=== PATIENT | male | born 1960 | race Caucasian/White ===

== ENCOUNTER 2018-05-08 02:56 | Inpatient (IN) ==
[2018-05-08] MEDS: *HR* OxyCODONE/APAP 5/325 TABLET PO PRN ×4 (06:40→20:35)
[2018-05-08] MEDS ORDERED: Ondansetron 4 MG/2 ML VIAL IVP PRN (08:08)
[2018-05-08] MEDS ORDERED: Naloxone 0.4 MG/ML INJ IVP PRN (08:08)
[2018-05-08] MEDS ORDERED: *HR* Promethazine 25 MG/ML VIAL IVP PRN (08:08)
[2018-05-08 08:53] LABS: BUN/Creatinine Ratio 33 (6-26); Blood Urea Nitrogen 18 mg/dL (6-20); Calcium 8.8 mg/dL (8.6-10.3); Carbon Dioxide 25 mEq/L (23-29); Chloride 106 mEq/L (98-107); Glucose 262 mg/dL (70-105); Osmolality,Calculated 295 (280-300); Potassium 3.7 mEq/L (3.5-5.1); Sodium 137 mEq/L (136-145); eGFR For African Americans > 60 (> 60); eGFR For Non-African Americans > 60 (> 60)
[2018-05-08] MEDS: Aspirin Enteric Coated 81 MG Tablet PO SCH (09:32)
--- NOTE | 2018-05-08 10:46 | Internal Med History&Physical ---
Date of Encounter: 05/08/18 Time of Encounter: 10:00 Internal Medicine - H&P: HPI Chief complaint: Chest pain Admitted From: Emergency Dept Plans for Post Hospital Care: Home History of present illness: Mr. 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 Patient stated he got chest pain while at rest, located left chest wall region, radiated to his left shoulder, intermittent and 5 out of 10 in severity. His chest pain more like tightness and sharp. He denied of any active chest pain now. His chest and relieved with a Nitro. Patient also mentioned some orthopnea and PND. He does have bilateral lower extremity edema too. Past Med Surg Social Fam HX - Past Medical History Medical history: coronary artery disease, CVA, diabetes, hypertension, myocardial infarction - Past Surgical History Additional surgical history: heart stent x 5 - Social History Smoking Status: Former smoker Smokeless Tobacco Status: No Alcohol use: none Drug use: none - Family History Brother Living Status: Age at : 40 Cause of : Throat cancer Hx Family Respiratory Disorders: Yes (COPD) Hx Family Cancer: Yes (Throat) Mother Living Status: Age at : 52 Cause of : Lung disease Hx Family Respiratory Disorders: Yes (COPD) Hx Family Cancer: No Hx Family GI Disorders: No Hx Family Genitourinary Disorders: No Hx Family Endocrine Disorder: No Hx Family Musculoskeletal Disorders: No Hx Family Neuromuscular Disorders: No Hx Family Neurologic Disorders: No Hx Family HEENT Disorders: No Hx Family Autoimmune Disorders: No Hx Family Reproductive Disorders: No Hx Family Psychosocial Disorders: No Hx Family Medical Disorders: No Internal Medicine - H&P: Meds Oxycodone HCl/Acetaminophen [Percocet 5-325 mg Tablet] 1 each PO Q4HR PRN [History] 3 Allergy/AdvReac Type Severity Reaction Status Date / Time hydrocodone Allergy Rash Verified 05/08/18 05:24 morphine Allergy Rash Verified 05/08/18 05:24 fluoxetine [From Prozac] AdvReac See Verified 05/08/18 05:24 Comments Varenicline [From Chantix] AdvReac See Verified 05/08/18 05:24 Comments All Systems PM: A 10-system review of systems was performed and is negative for pertinent findings except as documented above in the HPI. Review of systems: All the systems are reviewed everything is benign except the systems and symptoms I mentioned in the history of present illness - Constitutional Vitals: Temp Pulse Resp BP Pulse Ox 97.8 F 85 17 150/75 95 05/08/18 07:29 05/08/18 07:29 05/08/18 07:29 05/08/18 07:29 05/08/18 07:29 General appearance: Present: A&O X 3, no acute distress, answers questions appropriately - Head Head exam: Present: atraumatic, normal inspection - Neck Neck exam general surgery: Present: supple - Respiratory Respiratory exam: Present: decreased breath sounds. Absent: rales, respiratory distress, rhonchi, wheezes - Cardiovascular Cardiovascular exam: Present: RRR, +S1, +S2. Absent: tachycardia - GI/Abdominal GI/Abdominal exam: Present: normal bowel sounds, soft. Absent: rebound, rigid, tenderness - Extremities Exam Extremities exam: Present: pedal edema. Absent: calf tenderness, tenderness - Back Exam Back exam: Absent: CVA tenderness (L), CVA tenderness (R) - Psychiatric Psychiatric exam: Present: normal affect, normal mood - Skin Skin exam: Absent: rash Internal Med - H&P Results - Labs CBC & Chem 7: 05/08/18 08:24 Labs: BMP 05/08/18 08:24 Sodium 137 Potassium 3.7 Chloride 106 Carbon Dioxide 25 BUN 18 Creatinine 0.55 L Glucose 262 H Calcium 8.8 Cardiac Enzymes 05/08/18 05/08/18 Range/Units 06:24 08:24 Troponin I < 0.03 < 0.03 (< 0.04) ng/mL - Assessment and plan (1) Chest pain Current Visit: Yes Status: Acute Assessment and plan: Will admit the pt into Tele for observation Will place pt on personnel monitor check serial troponin so far negative troponin EKG reviewed showed normal sinus rhythm no acute ischemic changes noticed will start pt on ASA, Nitro PRN for pain Will check FLP in AM Will get pharmacological stress test in AM since pt is high risk for ACS reviewed his labs from [facility]- WBC 8.7, hemoglobin 12.9, [place]/creatinine 23/ 0.9 Qualifiers: Ischemic chest pain type: stable angina pectoris Qualified Code(s): I20.8 - Other forms of angina pectoris (2) Acute exacerbation of CHF (congestive heart failure) Current Visit: Yes Status: Acute Assessment and plan: His symptoms with HURTADO, orthopnea, PND and bilateral lower extremity edema of consistent with the mild CHF exacerbation no echocardiograms in the past listed here to review suspecting mostly diastolic congestive heart failure will get chest x-ray now also will check BNP depending on that will give him small dose of Lasix as needed also started him on metoprolol 20 mg PO b.i.d. check daily weights and electrolytes closely Qualifiers: Heart failure type: unspecified Qualified Code(s): I50.9 - Heart failure, unspecified (3) History of coronary artery disease Current Visit: Yes Status: Acute Assessment and plan: patient did mention he was off Plavix since last year never on any aspirin he also does not have primary care provider since 2016 so start him on aspirin and beta monroe blood pressure allows will add ACEI (4) Hypertension Current Visit: Yes Status: Acute Assessment and plan: started on Metoprolol Qualifiers: Hypertension type: essential hypertension Qualified Code(s): I10 - Essential (primary) hypertension (5) Diabetes type 2, controlled Current Visit: Yes Status: Acute Assessment and plan: Reviewed his labs from [facility] fasting blood sugar significantly elevated 270 will check hemoglobin A-1 C placed him on insulin sliding scale he may need oral medication when he is ready to go home Qualifiers: Diabetes mellitus residential insulin use: without residential use Diabetes mellitus complication status: without complication Qualified Code(s): E11.9 - Type 2 diabetes mellitus without complications (6) History of CVA with residual deficit Current Visit: Yes Status: Acute Assessment and plan: started him on aspirin - Time Spent With Patient Total time spent is greater than 50% in coordination of care (as documented) at patient's floor/unit and/or counseling patient:
[2018-05-08] MEDS ORDERED: D5% in Water 1,000 ML IVC PRN (10:56)
[2018-05-08] MEDS ORDERED: Dextrose Gel 15 GM/37.5 ML TUBE PO PRN ×2 (10:56)
[2018-05-08] MEDS ORDERED: *HR* Dextrose 50 % in Water (Syg) 50 ML SYRINGE IVP PRN (10:56)
[2018-05-08] MEDS: Furosemide 20 MG TABLET PO SCH ×2 (12:43→16:28)
[2018-05-08] MEDS: Insulin LISPRO 300 UNITS/3 ML VIAL SQ SCH ×3 (12:43→20:53)
[2018-05-08] MEDS: Bisacodyl 10 MG RECTAL SUPPOSITORY RC PRN (18:47)
[2018-05-09] MEDS: *HR* OxyCODONE/APAP 5/325 TABLET PO PRN ×5 (02:05→21:42)
[2018-05-09] MEDS: Melatonin 3 MG TABLET PO SCH ×2 (04:30→21:43)
[2018-05-09] MEDS ORDERED: *HR* Metoprolol 5 MG/5 ML VIAL IVP ONE (05:55)
[2018-05-09] MEDS ORDERED: Regadenoson 0.4 MG/5 ML SYRINGE IVP ONE (06:06)
[2018-05-09 07:27] LABS: Estimated Average Glucose 163 mg/dl; Hemoglobin A1C 7.3 %
[2018-05-09] MEDS: Aspirin Enteric Coated 81 MG Tablet PO SCH (08:04)
[2018-05-09] MEDS: Furosemide 20 MG TABLET PO SCH ×2 (08:04→17:27)
[2018-05-09] MEDS: Insulin LISPRO 300 UNITS/3 ML VIAL SQ SCH ×4 (08:05→21:43)
--- NOTE | 2018-05-09 09:00 | Internal Med Progress Note ---
<Roscoe Waite - Last Filed: 05/09/18 14:06> Date of Encounter: 05/09/18 Time of Encounter: 08:59 - Assessment and plan (1) Chest pain Current Visit: Yes Status: Acute Assessment and plan: Will admit the pt into Tele for observation Will place pt on radiographer cardiac catheterization Negative serial troponins EKG reviewed showed normal sinus rhythm no acute ischemic changes noticed Continue on ASA, Nitro PRN for pain (hold prior to stress test) FLP complete, start a high intensity statin per ACC/AHA guidelines Will get pharmacological stress test since pt is high risk for ACS. Patient states he is able to lay flat to perform nuclear stress test in AM. NPO after MN. Qualifiers: Chest pain type: chest pain due to myocardial ischemia Ischemic chest pain type: stable angina pectoris Qualified Code(s): I20.8 - Other forms of angina pectoris (2) History of coronary artery disease Current Visit: Yes Status: Acute Assessment and plan: Patient did mention he was off Plavix since last year Continue aspirin and beta monroe Start Amoldipine 10mg PO daily If blood pressure allows will add ACEI (3) Hypertension Current Visit: Yes Status: Acute Assessment and plan: Continue beta monroe Start Amoldipine 10mg PO daily If blood pressure allows will add ACEI Qualifiers: Hypertension type: essential hypertension Qualified Code(s): I10 - Essential (primary) hypertension (4) Acute exacerbation of CHF (congestive heart failure) Current Visit: Yes Status: Acute Assessment and plan: His symptoms with HURTADO, orthopnea, PND and bilateral lower extremity edema of consistent with the mild CHF exacerbation Echocardiograms revealed EF 60-65%, diastolic congestive heart failure Chest x-ray shows No consolidative airspace disease. Question airway inflammation, such as that seen with asthma, bronchitis or smoking, possibly aspiration given slight basal predominance. BNP 87 Continue Lasix and metoprolol 20 mg PO b.i.d. check daily weights and electrolytes closely Qualifiers: Heart failure type: unspecified Qualified Code(s): I50.9 - Heart failure, unspecified (5) Diabetes type 2, controlled Current Visit: Yes Status: Acute Assessment and plan: Hemoglobin A-1 C 7.3 Continue insulin sliding scale Start oral medication when he is ready to go home Qualifiers: Diabetes mellitus halfway insulin use: without halfway use Diabetes mellitus complication status: without complication Qualified Code(s): E11.9 - Type 2 diabetes mellitus without complications (6) History of CVA with residual deficit Current Visit: Yes Status: Acute Assessment and plan: Started him on aspirin PT/OT consulted (7) DVT prophylaxis Current Visit: Yes Status: Acute Assessment and plan: Heparin subQ - Time Spent With Patient Total time spent is greater than 50% in coordination of care (as documented) at patient's floor/unit and/or counseling patient: - Subjective Interval history: Patient seen and examined sitting comfortably at bedside. He reports leg edema this morning and unchanged chest pressure. Patient had episode of elevated BP overnight per RN. Patient states he is able to lay flat to perform nuclear stress test in AM. NPO after MN. - Constitutional Vitals: Temp Pulse Resp BP Pulse Ox 98.0 F 94 18 180/96 97 05/09/18 07:20 05/09/18 07:20 05/09/18 07:20 05/09/18 07:20 05/09/18 07:20 General appearance: Present: A&O X 3, no acute distress, obese, answers questions appropriately - Head Head exam: Present: atraumatic, normocephalic - Eye Eye exam: Present: PERRL, conjuntiva pink, sclera anicteric Pupils: Present: PERRL - ENT ENT exam: Present: mucous membranes moist, normal oropharynx - Neck Neck exam general surgery: Present: supple, trachea midline. Absent: lymphadenopathy - Respiratory Respiratory exam: Present: CTAB. Absent: accessory muscle use, rales, rhonchi, wheezes - Cardiovascular Cardiovascular exam: Present: RRR, +S1, +S2. Absent: diastolic murmur, gallop, rubs, systolic murmur - GI/Abdominal GI/Abdominal exam: Present: normal bowel sounds, soft, no peritoneal signs. Absent: distended, tenderness - Extremities Exam Extremities exam: Present: pedal edema (2+), warm, radial pulses palpable and symmetrical. Absent: calf tenderness, cyanotic, full ROM - Back Exam Back exam: Present: normal inspection. Absent: tenderness - Neurological Exam Neurological exam: Present: motor sensory deficit (residual left hemiparesis), oriented X3. Absent: no focal deficits, strengths equal and symetr throughout, pronater drift, facial droop, speech deficit - Psychiatric Psychiatric exam: Present: normal affect, normal mood - Skin Skin exam: Present: dry, intact, normal color, warm Internal Medicine: Result - Labs CBC & Chem 7: 05/08/18 08:24 Labs: Cardiac Enzymes 05/08/18 05/08/18 Range/Units 13:59 20:24 Troponin I < 0.03 < 0.03 (< 0.04) ng/mL - Pulse Oximetry Interpretation Digit-Finger Pulse Oximetry Readin (On RA) - Impressions Impressions Chest X-Ray 05/08/18 10:41 IMPRESSION: No consolidative airspace disease. Question airway inflammation, such as that seen with asthma, bronchitis or smoking, possibly aspiration given slight basal predominance. D/ / Denton Muñoz / eDnton Muñoz Interpreting Provider: Denton Muñoz Echocardiogram 05/08/18 10:41 Impressions: LVEF 60-65%. Mild left ventricular diastolic dysfunction. No significant valvular dysfunction. Left Ventricular Wall Motion: Rest Echo Findings All wall segments showed normal motion. Findings: Right Ventricle * Normal right ventricular structure and function. Right Atrium * Normal right atrial size. Mitral Valve * Normal mitral valve structure and function. Interatrial Septum * No evidence of PFO by color Doppler. Aorta * Normally sized aortic root. Pericardium * The pericardium appears normal. ECG Findings * Normal sinus rhythm. Pulmonic Valve * No pulmonic regurgitation. * No pulmonic stenosis. Study Quality * Technically sub-optimal due to clinical status. Aortic Valve * No aortic regurgitation. * No aortic stenosis. * Aortic valve not well visualized, calcified Left Ventricle * LVEF 60-65%. * Mild left ventricular diastolic dysfunction. Left Atrium * Borderline dilated left atrium. IVC * > 50% respiratory change * The IVC is dilated. Tricuspid Valve * No tricuspid stenosis. * No tricuspid regurgitation. * Unable to estimate RVSP due to lack of TR jet. Consult Discharge Plan - Plan Referrals: NONE,PCP [Primary Care Provider] - <Cristela Ddoson - Last Filed: 05/09/18 16:28> Date of Encounter: 05/09/18 - Assessment and plan (1) Chest pain Current Visit: Yes Status: Acute Qualifiers: Chest pain type: chest pain due to myocardial ischemia Ischemic chest pain type: stable angina pectoris Qualified Code(s): I20.8 - Other forms of angina pectoris (2) History of coronary artery disease Current Visit: Yes Status: Acute (3) Hypertension Current Visit: Yes Status: Acute Qualifiers: Hypertension type: essential hypertension Qualified Code(s): I10 - Essential (primary) hypertension (4) Diabetes type 2, controlled Current Visit: Yes Status: Acute Qualifiers: Diabetes mellitus termination clerk insulin use: without halfway use Diabetes mellitus complication status: without complication Qualified Code(s): E11.9 - Type 2 diabetes mellitus without complications (5) History of CVA with residual deficit Current Visit: Yes Status: Acute (6) Acute exacerbation of CHF (congestive heart failure) Current Visit: Yes Status: Acute Qualifiers: Heart failure type: unspecified Qualified Code(s): I50.9 - Heart failure, unspecified (7) DVT prophylaxis Current Visit: Yes Status: Acute - Time Spent With Patient Total time spent is greater than 50% in coordination of care (as documented) at patient's floor/unit and/or counseling patient: - Constitutional Vitals: Temp Pulse Resp BP Pulse Ox 97.8 F 96 16 128/81 94 05/09/18 15:18 05/09/18 15:18 05/09/18 15:18 05/09/18 15:18 05/09/18 15:18 Internal Medicine: Result - Labs CBC & Chem 7: 05/08/18 08:24 Labs: Cardiac Enzymes 05/08/18 Range/Units 20:24 Troponin I < 0.03 (< 0.04) ng/mL - Impressions Impressions Chest X-Ray 05/08/18 10:41 IMPRESSION: No consolidative airspace disease. Question airway inflammation, such as that seen with asthma, bronchitis or smoking, possibly aspiration given slight basal predominance. D/ / Denton Muñoz / Denton Muñoz Interpreting Provider: Denton Muñoz Echocardiogram 05/08/18 10:41 Impressions: LVEF 60-65%. Mild left ventricular diastolic dysfunction. No significant valvular dysfunction. Left Ventricular Wall Motion: Rest Echo Findings All wall segments showed normal motion. Findings: Right Ventricle * Normal right ventricular structure and function. Right Atrium * Normal right atrial size. Mitral Valve * Normal mitral valve structure and function. Interatrial Septum * No evidence of PFO by color Doppler. Aorta * Normally sized aortic root. Pericardium * The pericardium appears normal. ECG Findings * Normal sinus rhythm. Pulmonic Valve * No pulmonic regurgitation. * No pulmonic stenosis. Study Quality * Technically sub-optimal due to clinical status. Aortic Valve * No aortic regurgitation. * No aortic stenosis. * Aortic valve not well visualized, calcified Left Ventricle * LVEF 60-65%. * Mild left ventricular diastolic dysfunction. Left Atrium * Borderline dilated left atrium. IVC * > 50% respiratory change * The IVC is dilated. Tricuspid Valve * No tricuspid stenosis. * No tricuspid regurgitation. * Unable to estimate RVSP due to lack of TR jet. - Attending Attestation I examined this patient and my medical decision-making was reviewed with the Resident Physician Dr. Waite. I agree with the documented findings, disposition and treatment plan as described except to the extent set forth below. Mr. 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 Patient stated he got chest pain while at rest, located left chest wall region, radiated to his left shoulder, intermittent and 5 out of 10 in severity. He denied of any active chest pain now. His chest and relieved with a Nitro. Patient also mentioned some orthopnea and PND. He does have bilateral lower extremity edema too. Gen: A, A, O x 3 Chest: Diminished BS b/l Heart: S1S2 + Ext: b/l LE edema a/p 1. Acute chest pain so far negative troponin x 3 No acute EKG changes 2D Echo showed LVEF 60-65%, Mild LV diastolic dysfunction Unable to do stress test since pt is not able to lie flat will ask cardiology eval 2. Acute diastolic CHF exacerbation Echo reviewed Cont PO lasix 3. Uncontrolled HTN Metoprolol + Lasix Added Norvasc 10mg
[2018-05-09] MEDS ORDERED: amLODIPine 5 MG TABLET PO SCH (09:15)
[2018-05-09] MEDS ORDERED: amLODIPine 5 MG TABLET PO ONE (14:12)
[2018-05-09] MEDS: Acetaminophen 325 MG TABLET PO PRN (20:35)
[2018-05-10] MEDS: *HR* OxyCODONE/APAP 5/325 TABLET PO PRN ×4 (03:16→21:42)
[2018-05-10] MEDS ORDERED: Regadenoson 0.4 MG/5 ML SYRINGE IVP ONE (06:02)
[2018-05-10 06:44] LABS: INR 1.1; Prothrombin Time 12.3 Seconds (9.4-12.1)
[2018-05-10 06:56] LABS: BUN/Creatinine Ratio 30 (6-26); Blood Urea Nitrogen 16 mg/dL (6-20); Calcium 9.8 mg/dL (8.6-10.3); Carbon Dioxide 23 mEq/L (23-29); Chloride 104 mEq/L (98-107); Glucose 218 mg/dL (70-105); Osmolality,Calculated 294 (280-300); Potassium 3.4 mEq/L (3.5-5.1); Sodium 138 mEq/L (136-145); eGFR For African Americans > 60 (> 60); eGFR For Non-African Americans > 60 (> 60)
--- NOTE | 2018-05-10 08:18 | Internal Med Progress Note ---
<Roscoe Waite - Last Filed: 05/10/18 08:23> Date of Encounter: 05/10/18 Time of Encounter: 08:16 - Assessment and plan (1) Chest pain Current Visit: Yes Status: Acute Assessment and plan: Negative serial troponins EKG reviewed showed normal sinus rhythm no acute ischemic changes noticed Continue on ASA, Nitro PRN for pain FLP complete, start a high intensity statin per ACC/AHA guidelines Will like to get pharmacological stress test because pt is high risk for ACS but patient states he was not able to lay flat to perform nuclear stress test in AM. Continue field evidence technician Cardiology consulted for further recommendations Qualifiers: Chest pain type: chest pain due to myocardial ischemia Ischemic chest pain type: stable angina pectoris Qualified Code(s): I20.8 - Other forms of angina pectoris (2) History of coronary artery disease Current Visit: Yes Status: Acute Assessment and plan: Patient did mention he was off Plavix since last year Continue aspirin and beta monroe Continue Amoldipine 10mg PO daily If blood pressure allows will add ACEI (3) Hypertension Current Visit: Yes Status: Acute Assessment and plan: Continue beta monroe Continue Amoldipine 10mg PO daily If blood pressure allows will add ACEI Qualifiers: Hypertension type: essential hypertension Qualified Code(s): I10 - Essential (primary) hypertension (4) Acute exacerbation of CHF (congestive heart failure) Current Visit: Yes Status: Acute Assessment and plan: His symptoms with HURTADO, orthopnea, PND and bilateral lower extremity edema of consistent with the mild CHF exacerbation Echocardiograms revealed EF 60-65%, diastolic congestive heart failure Chest x-ray shows No consolidative airspace disease. Question airway inflammation, such as that seen with asthma, bronchitis or smoking, possibly aspiration given slight basal predominance. BNP 87 Continue Lasix and Metoprolol 20 mg PO b.i.d. check daily weights and electrolytes closely Qualifiers: Heart failure type: unspecified Qualified Code(s): I50.9 - Heart failure, unspecified (5) Diabetes type 2, controlled Current Visit: Yes Status: Acute Assessment and plan: Hemoglobin A-1 C 7.3 Continue insulin sliding scale Start oral medication when he is ready to go home Qualifiers: Diabetes mellitus manager intermediate insulin use: without senior living use Diabetes mellitus complication status: without complication Qualified Code(s): E11.9 - Type 2 diabetes mellitus without complications (6) History of CVA with residual deficit Current Visit: Yes Status: Acute Assessment and plan: Started him on aspirin PT/OT consulted (7) DVT prophylaxis Current Visit: Yes Status: Acute Assessment and plan: Heparin subQ - Time Spent With Patient Total time spent is greater than 50% in coordination of care (as documented) at patient's floor/unit and/or counseling patient: - Subjective Interval history: Patient seen and examined sitting comfortably at bedside. He reports unchanged chest pressure. Patient states he was not able to lay flat to perform nuclear stress test in AM. Cardiology consulted for further recommendations - Constitutional Vitals: Temp Pulse Resp BP Pulse Ox 98.5 F 92 14 126/78 95 05/10/18 07:22 05/10/18 07:22 05/10/18 07:22 05/10/18 07:22 05/10/18 07:22 General appearance: Present: A&O X 3, no acute distress, obese, answers questions appropriately - Head Head exam: Present: atraumatic, normocephalic - Eye Eye exam: Present: PERRL, conjuntiva pink, sclera anicteric Pupils: Present: PERRL - ENT ENT exam: Present: mucous membranes dry, normal oropharynx - Neck Neck exam general surgery: Present: supple, trachea midline. Absent: lymphadenopathy - Respiratory Respiratory exam: Present: CTAB. Absent: accessory muscle use, rales, rhonchi, wheezes - Cardiovascular Cardiovascular exam: Present: RRR, +S1, +S2. Absent: diastolic murmur, gallop, rubs, systolic murmur - GI/Abdominal GI/Abdominal exam: Present: normal bowel sounds, soft, no peritoneal signs. Absent: distended, tenderness - Extremities Exam Extremities exam: Present: pedal edema (1+), warm, radial pulses palpable and symmetrical. Absent: calf tenderness, cyanotic - Back Exam Back exam: Present: normal inspection. Absent: paraspinal tenderness, tenderness - Neurological Exam Neurological exam: Present: CN II-XII intact, motor sensory deficit (residual ) , oriented X3. Absent: no focal deficits, pronater drift, facial droop, speech deficit - Skin Skin exam: Present: dry, intact Internal Medicine: Result - Labs CBC & Chem 7: 05/10/18 05:51 Labs: BMP 05/10/18 05:51 Sodium 138 Potassium 3.4 L Chloride 104 Carbon Dioxide 23 BUN 16 Creatinine 0.54 L Glucose 218 H Calcium 9.8 - ABG Interpretation ABG results: PT/INR, D-dimer PT 12.3 Seconds (9.4-12.1) H 05/10/18 05:51 - Pulse Oximetry Interpretation Digit-Finger Pulse Oximetry Readin (On RA) Consult Discharge Plan - Plan Referrals: NONE,PCP [Primary Care Provider] - <Cristela Dodson - Last Filed: 05/10/18 13:50> Date of Encounter: 05/10/18 - Assessment and plan (1) Chest pain Current Visit: Yes Status: Acute Qualifiers: Chest pain type: chest pain due to myocardial ischemia Ischemic chest pain type: stable angina pectoris Qualified Code(s): I20.8 - Other forms of angina pectoris (2) History of coronary artery disease Current Visit: Yes Status: Acute (3) Hypertension Current Visit: Yes Status: Acute Qualifiers: Hypertension type: essential hypertension Qualified Code(s): I10 - Essential (primary) hypertension (4) Diabetes type 2, controlled Current Visit: Yes Status: Acute Qualifiers: Diabetes mellitus senior living insulin use: without manager intermediate use Diabetes mellitus complication status: without complication Qualified Code(s): E11.9 - Type 2 diabetes mellitus without complications (5) History of CVA with residual deficit Current Visit: Yes Status: Acute (6) Acute exacerbation of CHF (congestive heart failure) Current Visit: Yes Status: Acute Qualifiers: Heart failure type: unspecified Qualified Code(s): I50.9 - Heart failure, unspecified (7) DVT prophylaxis Current Visit: Yes Status: Acute - Time Spent With Patient Total time spent is greater than 50% in coordination of care (as documented) at patient's floor/unit and/or counseling patient: - Constitutional Vitals: Temp Pulse Resp BP Pulse Ox 98.4 F 88 14 110/74 96 05/10/18 11:27 05/10/18 11:27 05/10/18 11:27 05/10/18 11:27 05/10/18 11:27 Internal Medicine: Result - Labs CBC & Chem 7: 05/10/18 05:51 Labs: BMP 05/10/18 05:51 Sodium 138 Potassium 3.4 L Chloride 104 Carbon Dioxide 23 BUN 16 Creatinine 0.54 L Glucose 218 H Calcium 9.8 - ABG Interpretation ABG results: PT/INR, D-dimer PT 12.3 Seconds (9.4-12.1) H 05/10/18 05:51 - Attending Attestation I examined this patient and my medical decision-making was reviewed with the Resident Physician Dr. Waite. I agree with the documented findings, disposition and treatment plan as described except to the extent set forth below. Mr. 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 Patient stated he got chest pain while at rest, located left chest wall region, radiated to his left shoulder, intermittent and 5 out of 10 in severity. Patient also mentioned some orthopnea and PND. He does have bilateral lower extremity edema too. He still has some chest discomfort. Gen: A, A, O x 3 Chest: Diminished BS b/l Heart: S1S2 + Ext: b/l LE edema a/p 1. Acute chest pain so far negative troponin x 3 No acute EKG changes 2D Echo showed LVEF 60-65%, Mild LV diastolic dysfunction Unable to do stress test since pt is not able to lie flat Card suggested dobutamine Echo 2. Acute diastolic CHF exacerbation Echo reviewed Cont PO lasix 3. Uncontrolled HTN Improved with current regimen Metoprolol + Lasix Norvasc 10mg
[2018-05-10] MEDS: amLODIPine 5 MG TABLET PO SCH (08:26)
[2018-05-10] MEDS: Insulin LISPRO 300 UNITS/3 ML VIAL SQ SCH ×4 (08:27→21:49)
[2018-05-10] MEDS: Aspirin Enteric Coated 81 MG Tablet PO SCH (08:27)
[2018-05-10] MEDS: Furosemide 20 MG TABLET PO SCH (08:27)
--- NOTE | 2018-05-10 10:29 | Event Note ---
Date of Encounter: 05/10/18 Time of Encounter: 10:15 - Cardiology Event Note Patient reports he feels he could complete Dobutamine Stress Echo. Unfortunately ate food already. Discussed with primary service, no consult warranted, they will order DSE tomorrow. Consult if needed.
[2018-05-10] MEDS ORDERED: Nitroglycerin 0.4 MG TAB.SUBL SL ONE (15:03)
[2018-05-10] MEDS: Nitroglycerin 0.4 MG TAB.SUBL SL PRN ×2 (15:04→15:09)
[2018-05-10] MEDS: Melatonin 3 MG TABLET PO SCH (21:42)
[2018-05-11] MEDS: *HR* OxyCODONE/APAP 5/325 TABLET PO PRN ×5 (03:28→20:35)
[2018-05-11 07:01] LABS: Mean Corpuscular HGB Conc 33.3 g/dL (31.6-35.5); Mean Corpuscular Hemoglobin 30.2 pg (28.0-33.3); Mean Corpuscular Volume 90.7 fL (83.0-100.0); Mean Platelet Volume 9.9 fL (9.4-12.4); Platelet Count 125 K/mcL (140-400); Red Cell Distribution Width 13.4 % (11.5-14.5)
[2018-05-11 07:12] LABS: BUN/Creatinine Ratio 35 (6-26); Blood Urea Nitrogen 20 mg/dL (6-20); Calcium 9.4 mg/dL (8.6-10.3); Carbon Dioxide 21 mEq/L (23-29); Chloride 106 mEq/L (98-107); Glucose 252 mg/dL (70-105); Magnesium 1.6 mg/dL (1.6-2.6); Osmolality,Calculated 295 (280-300); Potassium 3.7 mEq/L (3.5-5.1); Sodium 137 mEq/L (136-145); eGFR For African Americans > 60 (> 60); eGFR For Non-African Americans > 60 (> 60)
[2018-05-11] MEDS: Insulin LISPRO 300 UNITS/3 ML VIAL SQ SCH ×4 (08:02→20:36)
--- NOTE | 2018-05-11 08:23 | Internal Med Progress Note ---
<Roscoe Waite - Last Filed: 05/11/18 13:23> Date of Encounter: 05/11/18 Time of Encounter: 08:21 - Assessment and plan (1) Chest pain Current Visit: Yes Status: Acute Assessment and plan: Negative serial troponins EKG reviewed showed normal sinus rhythm no acute ischemic changes noticed Continue on ASA, Nitro PRN for pain FLP complete, started a high intensity statin per ACC/AHA guidelines Patient is high risk for ACS but patient states he was not able to lay flat to perform nuclear stress test in AM. Continue compliance monitor Patient is NPO awaiting dobutamine stress Echo today per Cardiology recommendation Qualifiers: Chest pain type: chest pain due to myocardial ischemia Ischemic chest pain type: stable angina pectoris Qualified Code(s): I20.8 - Other forms of angina pectoris (2) History of coronary artery disease Current Visit: Yes Status: Acute Assessment and plan: CAD status post cardiac stents x 5 Patient did mention he was off Plavix since last year Continue aspirin and beta monroe Continue Amoldipine 10mg PO daily Resume home ACEI (3) Acute exacerbation of CHF (congestive heart failure) Current Visit: Yes Status: Acute Assessment and plan: His symptoms with HURTADO, orthopnea, PND and bilateral lower extremity edema of consistent with the mild CHF exacerbation Echocardiograms revealed EF 60-65%, diastolic congestive heart failure Chest x-ray shows No consolidative airspace disease. Question airway inflammation, such as that seen with asthma, bronchitis or smoking, possibly aspiration given slight basal predominance. BNP 87 Lasix IV given Continue Lasix PO daily and Metoprolol 20 mg PO BID check daily weights and electrolytes closely Qualifiers: Heart failure type: diastolic Qualified Code(s): I50.33 - Acute on chronic diastolic (congestive) heart failure (4) Hypertension Current Visit: Yes Status: Acute Assessment and plan: Continue beta monroe Continue Amoldipine 10mg PO daily Resume home ACEI Qualifiers: Hypertension type: essential hypertension Qualified Code(s): I10 - Essential (primary) hypertension (5) Diabetes type 2, controlled Current Visit: Yes Status: Acute Assessment and plan: Hemoglobin A-1 C 7.3 Continue insulin sliding scale Continue home insulin medication Qualifiers: Diabetes mellitus retirement insulin use: without long term care pharmacist use Diabetes mellitus complication status: without complication Qualified Code(s): E11.9 - Type 2 diabetes mellitus without complications (6) History of CVA with residual deficit Current Visit: Yes Status: Acute Assessment and plan: Status post CVA with chronic left residual paralysis Started him on aspirin PT/OT consulted (7) DVT prophylaxis Current Visit: Yes Status: Acute Assessment and plan: Heparin subQ - Time Spent With Patient Total time spent is greater than 50% in coordination of care (as documented) at patient's floor/unit and/or counseling patient: - Subjective Interval history: Patient seen and examined sitting comfortably at bedside. He reports ongoing chest pressure and pedal edema. Patient is NPO awaiting dobutamine stress Echo today per Cardiology recommendation - Constitutional Vitals: Temp Pulse Resp BP Pulse Ox 99.1 F 108 18 148/90 95 05/11/18 07:00 05/11/18 07:00 05/11/18 07:00 05/11/18 07:00 05/11/18 07:00 General appearance: Present: A&O X 3, no acute distress, obese, answers questions appropriately - Head Head exam: Present: atraumatic, normocephalic - Eye Eye exam: Present: PERRL, conjuntiva pink, sclera anicteric Pupils: Present: PERRL - ENT ENT exam: Present: mucous membranes dry, normal oropharynx - Neck Neck exam general surgery: Present: supple, trachea midline. Absent: lymphadenopathy - Respiratory Respiratory exam: Present: decreased breath sounds. Absent: accessory muscle use, rales, respiratory distress, rhonchi, wheezes - Cardiovascular Cardiovascular exam: Present: RRR, +S1, +S2. Absent: diastolic murmur, gallop, rubs, systolic murmur - GI/Abdominal GI/Abdominal exam: Present: normal bowel sounds, soft, no peritoneal signs. Absent: distended, tenderness - Extremities Exam Extremities exam: Present: pedal edema (2+), warm, radial pulses palpable and symmetrical. Absent: calf tenderness, cyanotic - Back Exam Back exam: Present: normal inspection. Absent: paraspinal tenderness, tenderness - Neurological Exam Neurological exam: Present: CN II-XII intact, motor sensory deficit (residual left sided weakness), oriented X3. Absent: no focal deficits, strengths equal and symetr throughout, pronater drift, facial droop, speech deficit - Psychiatric Psychiatric exam: Present: normal affect, normal mood - Skin Skin exam: Present: dry, intact Internal Medicine: Result - Labs CBC & Chem 7: 05/11/18 06:36 05/11/18 06:36 Labs: Short CBC 05/11/18 Range/Units 06:36 WBC 13.3 H (4.3-11.1) K/mcL Hgb 13.0 (12.9-16.9) g/dL Hct 39.0 (37.5-50.1) % Plt Count 125 L (140-400) K/mcL BMP 05/11/18 06:36 Sodium 137 Potassium 3.7 Chloride 106 Carbon Dioxide 21 L BUN 20 Creatinine 0.57 L Glucose 252 H Calcium 9.4 - ABG Interpretation ABG results: PT/INR, D-dimer PT 12.3 Seconds (9.4-12.1) H 05/10/18 05:51 - Pulse Oximetry Interpretation Digit-Finger Pulse Oximetry Readin (On RA) Consult Discharge Plan - Plan Referrals: NONE,PCP [Primary Care Provider] - <Cristela Dodson - Last Filed: 05/11/18 16:08> Date of Encounter: 05/11/18 - Assessment and plan (1) Chest pain Current Visit: Yes Status: Acute Qualifiers: Chest pain type: chest pain due to myocardial ischemia Ischemic chest pain type: stable angina pectoris Qualified Code(s): I20.8 - Other forms of angina pectoris (2) History of coronary artery disease Current Visit: Yes Status: Acute (3) Hypertension Current Visit: Yes Status: Acute Qualifiers: Hypertension type: essential hypertension Qualified Code(s): I10 - Essential (primary) hypertension (4) Diabetes type 2, controlled Current Visit: Yes Status: Acute Qualifiers: Diabetes mellitus long term care pharmacist insulin use: without long term care pharmacist use Diabetes mellitus complication status: without complication Qualified Code(s): E11.9 - Type 2 diabetes mellitus without complications (5) History of CVA with residual deficit Current Visit: Yes Status: Acute (6) Acute exacerbation of CHF (congestive heart failure) Current Visit: Yes Status: Acute Qualifiers: Heart failure type: diastolic Qualified Code(s): I50.33 - Acute on chronic diastolic (congestive) heart failure (7) DVT prophylaxis Current Visit: Yes Status: Acute - Time Spent With Patient Total time spent is greater than 50% in coordination of care (as documented) at patient's floor/unit and/or counseling patient: - Constitutional Vitals: Temp Pulse Resp BP Pulse Ox 98.6 F 101 20 132/82 95 05/11/18 15:17 05/11/18 15:17 05/11/18 15:17 05/11/18 15:17 05/11/18 15:17 Internal Medicine: Result - Labs CBC & Chem 7: 05/11/18 06:36 05/11/18 06:36 Labs: Short CBC 05/11/18 Range/Units 06:36 WBC 13.3 H (4.3-11.1) K/mcL Hgb 13.0 (12.9-16.9) g/dL Hct 39.0 (37.5-50.1) % Plt Count 125 L (140-400) K/mcL BMP 05/11/18 06:36 Sodium 137 Potassium 3.7 Chloride 106 Carbon Dioxide 21 L BUN 20 Creatinine 0.57 L Glucose 252 H Calcium 9.4 - ABG Interpretation ABG results: PT/INR, D-dimer PT 12.3 Seconds (9.4-12.1) H 05/10/18 05:51 - Attending Attestation I examined this patient and my medical decision-making was reviewed with the Resident Physician Dr. Waite. I agree with the documented findings, disposition and treatment plan as described except to the extent set forth below. Mr. Da Silva is a 57 year old male with known past medical history of CAD status post cardiac stents x 5, HTN, hyperlipidemia and history of CVA status post chronic left residual paralysis who is currently not on any anti platelet medication presented emergency room at [facility] with chest pain from last couple of days. Patient stated he got chest pain while at rest, located left chest wall region, radiated to his left shoulder, intermittent and 5 out of 10 in severity. Patient also mentioned some orthopnea and PND. He still has some intermittent chest discomfort. Gen: A, A, O x 3 Chest: Diminished BS b/l Heart: S1S2 + Ext: b/l LE edema a/p 1. Acute chest pain so far negative troponin x 3 No acute EKG changes 2D Echo showed LVEF 60-65%, Mild LV diastolic dysfunction Unable to do stress test since pt is not able to lie flat Reviewed his Dobutamine Echo - unclear Will talk to Card about further work up since he still has intermittent CP 2. Acute diastolic CHF exacerbation Echo reviewed Cont PO lasix 3. Uncontrolled HTN Improved with current regimen Metoprolol + Lasix Norvasc 10mg
[2018-05-11] MEDS ORDERED: Furosemide 20 MG TABLET PO SCH (09:00)
[2018-05-11] MEDS ORDERED: Furosemide 40 MG/4 ML VIAL IVP ONE (10:02)
[2018-05-11] MEDS: Budesonide/Formoterol 160/4.5 MDI IH SCH ×2 (11:05→19:44)
[2018-05-11] MEDS: Tiotropium 18 MCG inhalation IH SCH (11:05)
[2018-05-11] MEDS: amLODIPine 5 MG TABLET PO SCH (11:29)
[2018-05-11] MEDS: Aspirin Enteric Coated 81 MG Tablet PO SCH (11:30)
[2018-05-11] MEDS: risperiDONE 1 MG TABLET PO SCH ×2 (16:19→20:34)
[2018-05-11] MEDS: Furosemide 40 MG/4 ML VIAL IVP SCH (17:07)
[2018-05-11] MEDS: Gabapentin 300 MG CAPSULE PO SCH (20:34)
[2018-05-11] MEDS: Melatonin 3 MG TABLET PO SCH (20:35)
[2018-05-11] MEDS: Famotidine 20 MG TABLET PO SCH (20:35)
[2018-05-11] MEDS ORDERED: Insulin DETEMIR 100 UNIT/ML X5UNITS SQ SCH (21:00)
[2018-05-11] MEDS: Insulin DETEMIR 100 UNIT/ML X5UNITS SQ SCH ×2 (22:31→23:11)
[2018-05-12] MEDS: *HR* OxyCODONE/APAP 5/325 TABLET PO PRN ×5 (05:06→22:06)
[2018-05-12 07:18] LABS: Basophils % 0.3 %; Eosinophils # 0.1 K/mcL (0.0-0.6); Eosinophils % 1.4 %; Hematocrit 37.4 % (37.5-50.1); Hemoglobin 12.5 g/dL (12.9-16.9); Immature Granulocytes % 0.4 % (0-4); Lymphocytes # 2.9 K/mcL (0.6-4.6); Lymphocytes % 28.5 %; Mean Corpuscular HGB Conc 33.4 g/dL (31.6-35.5); Mean Corpuscular Hemoglobin 30.4 pg (28.0-33.3); Mean Platelet Volume 9.2 fL (9.4-12.4); Monocytes # 0.9 K/mcL (0.0-1.3); Monocytes % 8.3 %; Neutrophils # 6.2 K/mcL (1.6-8.9); Platelet Count 150 K/mcL (140-400); Red Blood Count 4.11 M/mcL (4.19-5.50); Red Cell Distribution Width 13.7 % (11.5-14.5); Segmented Neutrophils % 61.1 %
[2018-05-12 07:34] LABS: BUN/Creatinine Ratio 29 (6-26); Blood Urea Nitrogen 22 mg/dL (6-20); Calcium 9.7 mg/dL (8.6-10.3); Carbon Dioxide 26 mEq/L (23-29); Chloride 102 mEq/L (98-107); Glucose 154 mg/dL (70-105); Osmolality,Calculated 290 (280-300); Potassium 3.5 mEq/L (3.5-5.1); Sodium 137 mEq/L (136-145); eGFR For African Americans > 60 (> 60); eGFR For Non-African Americans > 60 (> 60)
[2018-05-12] MEDS: Budesonide/Formoterol 160/4.5 MDI IH SCH ×2 (07:36→22:41)
[2018-05-12] MEDS: Tiotropium 18 MCG inhalation IH SCH (07:36)
[2018-05-12] MEDS: Insulin LISPRO 300 UNITS/3 ML VIAL SQ SCH ×4 (08:00→20:45)
--- NOTE | 2018-05-12 08:45 | Internal Med Progress Note ---
<Florina Ghotra - Last Filed: 05/12/18 08:41> Date of Encounter: 05/12/18 Time of Encounter: 08:41 - Assessment and plan (1) Chest pain Current Visit: Yes Status: Acute Assessment and plan: Negative serial troponins EKG reviewed showed normal sinus rhythm no acute ischemic changes noticed Continue on ASA, Nitro PRN for pain Continue cardiac nurse practitioner dobutamine stress Echo completed yesterday. Multiple LV wall segments were not seen. Therefore cardiology agrees to perform left heart catheter today. Qualifiers: Chest pain type: chest pain due to myocardial ischemia Ischemic chest pain type: stable angina pectoris Qualified Code(s): I20.8 - Other forms of angina pectoris (2) History of coronary artery disease Current Visit: Yes Status: Acute Assessment and plan: CAD status post cardiac stents x 5 Patient did mention he was off Plavix since last year Continue aspirin and beta monroe Continue Amoldipine 10mg PO daily Resume home ACEI (3) Hypertension Current Visit: Yes Status: Acute Assessment and plan: Continue beta monroe Continue Amoldipine 10mg PO daily Resume home ACEI Qualifiers: Hypertension type: essential hypertension Qualified Code(s): I10 - Essential (primary) hypertension (4) Diabetes type 2, controlled Current Visit: Yes Status: Acute Assessment and plan: Hemoglobin A-1 C 7.3 Continue insulin sliding scale Continue home insulin medication Qualifiers: Diabetes mellitus alf insulin use: without alf use Diabetes mellitus complication status: without complication Qualified Code(s): E11.9 - Type 2 diabetes mellitus without complications (5) History of CVA with residual deficit Current Visit: Yes Status: Acute Assessment and plan: Status post CVA with chronic left residual paralysis Started him on aspirin PT/OT consulted (6) Acute exacerbation of CHF (congestive heart failure) Current Visit: Yes Status: Acute Assessment and plan: Echocardiograms revealed EF 60-65%, diastolic congestive heart failure BNP 87 Lasix IV given Continue Lasix PO daily and Metoprolol 20 mg PO BID check daily weights and electrolytes closely Qualifiers: Heart failure type: diastolic Qualified Code(s): I50.33 - Acute on chronic diastolic (congestive) heart failure (7) DVT prophylaxis Current Visit: Yes Status: Acute Assessment and plan: Heparin subQ - Time Spent With Patient Total time spent is greater than 50% in coordination of care (as documented) at patient's floor/unit and/or counseling patient: - Subjective Interval history: Patient states he is doing well this morning. Denies any chest pain, pressure or palpitations. Ate and drank well yesterday without complication. Cardiology agrees to perform left heart catheter today. - Constitutional Vitals: Temp Pulse Resp BP Pulse Ox 97.7 F 57 18 124/74 99 05/12/18 06:55 05/12/18 06:55 05/12/18 07:36 05/12/18 06:55 05/12/18 07:36 General appearance: Present: A&O X 3, no acute distress, obese, answers questions appropriately - Head Head exam: Present: atraumatic, normocephalic - Respiratory Respiratory exam: Present: CTAB. Absent: accessory muscle use, rales, rhonchi, wheezes - Cardiovascular Cardiovascular exam: Present: RRR, +S1, +S2. Absent: diastolic murmur, gallop, rubs, systolic murmur - GI/Abdominal GI/Abdominal exam: Present: normal bowel sounds, soft, no peritoneal signs. Absent: distended, tenderness - Neurological Exam Neurological exam: Present: alert, oriented X3 Additional comments: residual left sided weakness Internal Medicine: Result - Labs CBC & Chem 7: 05/12/18 06:59 05/12/18 06:59 Labs: Short CBC 05/12/18 Range/Units 06:59 WBC 10.2 (4.3-11.1) K/mcL Hgb 12.5 L (12.9-16.9) g/dL Hct 37.4 L (37.5-50.1) % Plt Count 150 (140-400) K/mcL Neutrophils # 6.2 (1.6-8.9) K/mcL BMP 05/12/18 06:59 Sodium 137 Potassium 3.5 Chloride 102 Carbon Dioxide 26 BUN 22 H Creatinine 0.75 Glucose 154 H Calcium 9.7 - ABG Interpretation ABG results: PT/INR, D-dimer PT 12.3 Seconds (9.4-12.1) H 05/10/18 05:51 Consult Discharge Plan - Plan Referrals: NONE,PCP [Primary Care Provider] - <Cristela Dodson - Last Filed: 05/12/18 12:46> Date of Encounter: 05/12/18 - Assessment and plan (1) Chest pain Current Visit: Yes Status: Acute Qualifiers: Chest pain type: chest pain due to myocardial ischemia Ischemic chest pain type: stable angina pectoris Qualified Code(s): I20.8 - Other forms of angina pectoris (2) History of coronary artery disease Current Visit: Yes Status: Acute (3) Hypertension Current Visit: Yes Status: Acute Qualifiers: Hypertension type: essential hypertension Qualified Code(s): I10 - Essential (primary) hypertension (4) Diabetes type 2, controlled Current Visit: Yes Status: Acute Qualifiers: Diabetes mellitus alf insulin use: without alf use Diabetes mellitus complication status: without complication Qualified Code(s): E11.9 - Type 2 diabetes mellitus without complications (5) History of CVA with residual deficit Current Visit: Yes Status: Acute (6) Acute exacerbation of CHF (congestive heart failure) Current Visit: Yes Status: Acute Qualifiers: Heart failure type: diastolic Qualified Code(s): I50.33 - Acute on chronic diastolic (congestive) heart failure (7) DVT prophylaxis Current Visit: Yes Status: Acute - Time Spent With Patient Total time spent is greater than 50% in coordination of care (as documented) at patient's floor/unit and/or counseling patient: - Constitutional Vitals: Temp Pulse Resp BP Pulse Ox 98.0 F 80 18 112/75 91 05/12/18 10:46 05/12/18 10:46 05/12/18 10:46 05/12/18 10:46 05/12/18 10:46 Internal Medicine: Result - Labs CBC & Chem 7: 05/12/18 06:59 05/12/18 06:59 Labs: Short CBC 05/12/18 Range/Units 06:59 WBC 10.2 (4.3-11.1) K/mcL Hgb 12.5 L (12.9-16.9) g/dL Hct 37.4 L (37.5-50.1) % Plt Count 150 (140-400) K/mcL Neutrophils # 6.2 (1.6-8.9) K/mcL BMP 05/12/18 06:59 Sodium 137 Potassium 3.5 Chloride 102 Carbon Dioxide 26 BUN 22 H Creatinine 0.75 Glucose 154 H Calcium 9.7 - ABG Interpretation ABG results: PT/INR, D-dimer PT 12.3 Seconds (9.4-12.1) H 05/10/18 05:51 - Attending Attestation I examined this patient and my medical decision-making was reviewed with the Resident Physician Dr. Ghotra. I agree with the documented findings, disposition and treatment plan as described except to the extent set forth below. Mr. Da Silva is a 57 year old male with known past medical history of CAD status post cardiac stents x 5, HTN, hyperlipidemia and history of CVA status post chronic left residual paralysis who is currently not on any anti platelet medication presented emergency room at [facility] with chest pain from last couple of days. Patient stated he got chest pain while at rest, located left chest wall region, radiated to his left shoulder, intermittent and 5 out of 10 in severity. Patient states over all he feels better today. He still has some intermittent chest discomfort. Gen: A, A, O x 3 Chest: Diminished BS b/l Heart: S1S2 + Ext: b/l LE edema a/p 1. Acute chest pain so far negative troponin x 3 No acute EKG changes 2D Echo showed LVEF 60-65%, Mild LV diastolic dysfunction Unable to do stress test since pt is not able to lie flat Reviewed his Dobutamine Echo - unclear Card scheduled him for [facility] today 2. Acute diastolic CHF exacerbation Echo reviewed Switched to IV lasix 3. Uncontrolled HTN Improved with current regimen Metoprolol + Lasix Norvasc 10mg
[2018-05-12] MEDS: Furosemide 40 MG/4 ML VIAL IVP SCH ×2 (09:12→17:49)
[2018-05-12] MEDS: Aspirin Enteric Coated 81 MG Tablet PO SCH (09:12)
[2018-05-12] MEDS: Famotidine 20 MG TABLET PO SCH ×2 (09:12→20:43)
[2018-05-12] MEDS: Sennosides/Docusate Sodium TABLET PO SCH (09:12)
[2018-05-12] MEDS: Cholecalciferol (D-3) 1,000 UNIT TABLET PO SCH (09:12)
[2018-05-12] MEDS: Gabapentin 300 MG CAPSULE PO SCH ×3 (09:12→20:44)
[2018-05-12] MEDS: amLODIPine 5 MG TABLET PO SCH (09:13)
--- NOTE | 2018-05-12 11:49 | Cardiology Consult Note ---
<Don Garcia - Last Filed: 05/12/18 13:24> Date of Encounter: 05/12/18 Time of Encounter: 11:42 Assessment and Plan (1) Chest pain Current Visit: Yes Status: Acute Suspect UA with possible underlying occlusion/stenosis. Comorbidities include diabetes, significant smoking history, recent CVA, history of IA with multiple stents placed, and mixed dyslipidemia. Serial troponin's negative times 4. BNP within normal range. Echo obtained on 05/08/18 demonstrated mild diastolic dysfunction of left ventricle, but preserved LVEF. Dobutamine stress echo was nondiagnostic with incomplete wall visualization. - plan is to proceed with [facility] today; discussed with patient and he is willing to proceed. -- Pt NPO and denies any contrast allergies -- Patient is demonstrably able to tolerate supine position without oxygen desaturation, cyanosis, or respiratory distress. Qualifiers: Chest pain type: chest pain due to myocardial ischemia Ischemic chest pain type: stable angina pectoris Qualified Code(s): I20.8 - Other forms of angina pectoris Discussion w patient/family: The assessment and plan as outlined above was discussed with the patient and/or family members who expressed understanding and agreement. All questions were answered. Thank you for involving us in the care of your patient. Please call with any questions. History of Present Illness Consult date: 05/12/18 Requesting physician: Cristela Dodson Consult reason: Chest Pain -- nondiagnostic dobutamine stress echo Chief complaint: Chest pain, SOA, and worsening leg swelling History of present illness: Mr. Da Silva is a 57 year old male with past medical history of CAD, CVA (Dec 2017 with residual deficits), DM 2 on insulin, HTN, IA s/p stents x5 ("2012"), former smoker 3 packs per day for approximately 40 years (quit in December 2017 after CVA). Began having left/retrosternal chest pain that felt like a heavy pressure on Wednesday evening (05/06/18). Pain radiated initially to left shoulder. Moderate severity. Pain worsened with any movement including cough or position change. Relieved spontaneously. Intermittent pattern. Also relieved when given nitro. Associated with diaphoresis. No dizziness, episodic shortness of breath, or abdominal discomfort. Presented to [facility] ED same day. Transferred to [place]. Preceding this pain pattern, which he says is completely new for him, patient describes several months of orthopnea and worsening pedal edema. Troponin cycled x4 on date of admission (05/08/18) all of which were less than 0.03; initial EKG without any acute ischemic findings. Echo on 05/08/18 demonstrated LVEF of 60-65% & mild left ventricular diastolic dysfunction; no comparison study in [facility]. Dobutamine stress test on 05/11/18 was non-diagnostic due to habitus with several wall segments not visualized. Patient asymptomatic at present. On encounter, patient is lying flat with no supplementary oxygen; no signs of acute respiratory distress or cyanosis. Past Med Surg Social Fam HX - Past Medical History Attestation: Yes The following information was validated with the patient. Source: patient Medical history: coronary artery disease, CVA, diabetes, hypertension, myocardial infarction - Past Surgical History Surgical History: angioplasty/stent Additional surgical history: heart stent x 5 - Social History Smoking Status: Former smoker Smokeless Tobacco Status: No Alcohol use: none Drug use: none - Family History Brother Living Status: Age at : 40 Cause of : Throat cancer Hx Family Respiratory Disorders: Yes (COPD) Hx Family Cancer: Yes (Throat) Mother Living Status: Age at : 52 Cause of : Lung disease Hx Family Respiratory Disorders: Yes (COPD) Hx Family Cancer: No Hx Family GI Disorders: No Hx Family Genitourinary Disorders: No Hx Family Endocrine Disorder: No Hx Family Musculoskeletal Disorders: No Hx Family Neuromuscular Disorders: No Hx Family Neurologic Disorders: No Hx Family HEENT Disorders: No Hx Family Autoimmune Disorders: No Hx Family Reproductive Disorders: No Hx Family Psychosocial Disorders: No Hx Family Medical Disorders: No Medications and Allergies Oxycodone HCl/Acetaminophen [Percocet 5-325 mg Tablet] 1 tab PO TID PRN [History] Atorvastatin [Lipitor] 40 mg PO HS 05/11/18 [History] Budesonide/Formoterol 160/4.5 [Symbicort 160/4.5] 2 puff IH BIDR 05/11/18 [ History] Cholecalciferol (Vitamin D3) [Vitamin D3] 2,000 unit PO DAILY 05/11/18 [History] Diclofen Sod/Kinesiology Tape [Diclo Gel 1%-Xrylix Sheet Kit] 1 appl TP QID [History] Famotidine [Pepcid] 20 mg PO BID 05/11/18 [History] Gabapentin [Neurontin] 600 mg PO TID 05/11/18 [History] Ibuprofen 800 mg PO TID 05/11/18 [History] Insulin ASPART [Novolog Flexpen] 14 unit SQ TIDWM 05/11/18 [History] Insulin Glargine [Lantus] 75 unit SQ HS 05/11/18 [History] Lisinopril [Zestril] 5 mg PO DAILY 05/11/18 [History] Sennosides/Docusate Sodium [Senna-S Tablet] 1 tab PO DAILY PRN 05/11/18 [History ] Tiotropium [Spiriva] 1 puff IH DAILY 05/11/18 [History] risperiDONE [Risperidone] 2 mg PO TID 05/11/18 [History] 3 Allergy/AdvReac Type Severity Reaction Status Date / Time hydrocodone Allergy Rash Verified 05/08/18 05:24 morphine Allergy Rash Verified 05/08/18 05:24 fluoxetine [From Prozac] AdvReac See Verified 05/08/18 05:24 Comments Varenicline [From Chantix] AdvReac See Verified 05/08/18 05:24 Comments All Systems Review: Positive: ongoing orthopnea/dyspnea, chest pain as described, pedal edema Negative: syncope, precinct be, fevers, chills, myalgias, palpitations, productive,, nausea, vomiting, abdominal upset, diarrhea, dysuria, hematuria, melanoma, bloody stools, or rash/petechiae. Physical Examination Vital Signs, Last 4 Hours Temp Pulse Resp BP Pulse Ox 05/12/18 10:46 98.0 F 80 18 112/75 91 General: Conversant, No Apparent Distress HEENT: Atraumatic, Normocephaly, Mucus Membranes Moist Neck: No JVD, Normal carotid pulses Cardiac: Reg Rate and Rhythm, Normal S1 and S2, No Murmur Lungs: Normal Breath Sounds, No Wheeze, Rales, Rhonchi Neuro: Alert and responsive, Other (Does have residual deficits particularly in the left extremity is from stroke in early 2018) Abdomen: Soft, Non-Tender Skin: No rashes noted on visualized skin Musculoskeletal: No Chest Wall Tenderness Extremities: No Clubbing, No Cyanosis, Other (Bilateral lower extremity pedal edema 1+) Other: Radial and DP pulses 1+ uniformly Results 05/12/18 06:59 05/12/18 06:59 Lab Results 05/12/18 05/12/18 06:59 06:59 WBC 10.2 Hgb 12.5 L Hct 37.4 L Plt Count 150 Sodium 137 Potassium 3.5 Chloride 102 Carbon Dioxide 26 BUN 22 H Creatinine 0.75 Glucose 154 H Calcium 9.7 Consult Discharge Plan - Plan Referrals: NONE,PCP [Primary Care Provider] - <Clarke Quezada - Last Filed: 05/12/18 15:27> Date of Encounter: 05/12/18 - Attending Attestation I examined this patient and my medical decision-making was reviewed with the Resident Physician. I agree with the documented findings, disposition and treatment plan as described except to the extent set forth below. Awaiting [facility], patient echo poor image quality Assessment and Plan Discussion w patient/family: The assessment and plan as outlined above was discussed with the patient and/or family members who expressed understanding and agreement. All questions were answered. Thank you for involving us in the care of your patient. Please call with any questions. History of Present Illness History of present illness: Mr. Da Silva is a 57 year old male All Systems Review: The remainder of the systems were reviewed and are negative Results 05/12/18 06:59 05/12/18 06:59 Lab Results 05/12/18 05/12/18 06:59 06:59 WBC 10.2 Hgb 12.5 L Hct 37.4 L Plt Count 150 Sodium 137 Potassium 3.5 Chloride 102 Carbon Dioxide 26 BUN 22 H Creatinine 0.75 Glucose 154 H Calcium 9.7
[2018-05-12] MEDS ORDERED: 0.9 % Sodium Chloride 1,000 ML ONE ×2 (14:52→15:40)
[2018-05-12] MEDS ORDERED: Heparin 1,000 UNITS/500 mL 500 ML ONE (14:52)
[2018-05-12] MEDS ORDERED: ISOVUE-370 200 ML INFUS..BTL IV ONE (14:52)
[2018-05-12] MEDS ORDERED: Nitroglycerin 1,000 MCG/10 ML VIAL IV ONE (14:52)
[2018-05-12] MEDS ORDERED: *HR* Heparin 10,000 UNIT/10 ML VIAL ONE (14:52)
[2018-05-12] MEDS ORDERED: *HR* Midazolam HCl 2 MG/2 ML VIAL ONE (15:41)
--- NOTE | 2018-05-12 15:59 | Pre-Sedation Evaluation ---
Pre-sedation evaluation - Pre-sedation checklist Date of procedure: 05/12/18 Procedure: left heart cath Recent Vitals: Last Vital Signs Temp 98.0 F 05/12/18 10:46 Pulse 80 05/12/18 10:46 Resp 18 05/12/18 10:46 BP 112/75 05/12/18 10:46 Pulse Ox 91 05/12/18 10:46 H&P (including ROS) documented in medical record: Yes Previous reaction to sedatives/anesthetics: No Dietary Status: NPO after Midnight Airway Assessment: Patient can open mouth completely, TMJ function normal Dentition: No loose teeth or bridges Possible difficult airway: No ASA Classification *see protocol: CLASS III-Severe systemic disease Plan of Care: Pt appropriate candidate for procedure/moderate/conscious sedation , Risks/benefits of procedure/sedation discussed w/ patient/family, If not NPO; Risk of intake outweiged by necessity to perform procedure
[2018-05-12] MEDS ORDERED: 0.9 % Sodium Chloride 1,000 ML IVC SCH (16:30)
--- NOTE | 2018-05-12 16:53 | Invasive Diagnostic Lab Proc ---
Name: Eldon Da Silva Date of Study: 05/12/2018 Date: 1960 Ht: 70.9in Medical Record#: [id number] Age: 57 Wt: 238.10lb Gender: Male BSA: 2.27 Order #: [id number] BMI: 33.33 Physicians Procedure Physician: Raf Gonzáles DO Referring MD: Referring MD: Staff Name Position Time In MaksimDonny roberson RN Lead Dental Assistant 03:56 PM Kerwin Medina RN Monitor 03:56 PM Binh Smith RT (R) Scrub 03:56 PM Indications Indication Unstable Angina Procedures Performed Procedure L HRT ARTERY/VENTRICLE ANGIO Pre-Procedure Checklist Informed consent is complete signed and on chart. H&P is on chart. ID band is on and ID verified with patient. Patient NPO for procedure The procedure was described for the patient and questions were answered. Blood Pressure: 112/74 ECG is on chart. Plan of Care Patient will tolerate the procedure without complications. Adequate level of comfort will be maintained. Hemodynamics will remain stable Patient will recover from procedure without complications. Respiratory function will be maintained. Cardiac rhythm will remain stable. Patient temperature will be maintained. Patient and/or family have verbalized understanding of the procedure. Patient Education Chief Complaint/Reason for Test: Cardiac Cath Developmental Category: Adult (18-64 years) Developmentally Appropriate for Age: Yes Learning Barriers: None Education Needs: Procedure Education Method: Verbal Information Taught: Cardiac Cath Educational Evaluation: Able to repeat information Intravenous Access Time IV Size Location DC'd Fluid/Drip Rate Units RN 20g 1 /" Patent On Arrival Rt Antecubital Allergies morphine hydrocodone fluoxetine Varenicline Vital Signs Time BP (mmHg) HR (bpm) O2 Sat. RR (bpm) LOC 02:19 PM 112 / 75 80 91 % 18 5 = Fully awake and oriented or at pre-proc level 03:57 PM / % 5 = Fully awake and oriented or at pre-proc level 04:00 PM / % 5 = Fully awake and oriented or at pre-proc level 04:00 PM / % 4 = Oriented but drowsy 04:14 PM 115 / 68 117 100 % 04:20 PM 127 / 67 76 100 % 04:24 PM 139 / 77 73 100 % 04:29 PM 151 / 69 73 100 % 04:35 PM 156 / 76 75 95 % 04:39 PM 127 / 78 93 99 % 03:59 PM 117 / 70 96 100 % 04:04 PM 105 / 58 74 99 % 04:09 PM 103 / 62 86 100 % Procedural Medications Time Medication Dose Units Method Given By 04:00 PM Oxygen 2 L/min nasal cannula Donny Schaeffer RN 04:01 PM Versed 2 mg Intravenous Donny Schaeffer RN 04:08 PM Lidocaine 2% 10 ml Subcutaneous Raf Gonzáles DO ASA Classification: CLASS III- Severe systemic disease (i.e. prior AMI, diabetes with vascular complications, morbid obesity) Sumit Score Preprocedure Postprocedure Activity 2- Moves 4 extremities sustained head lift Activity 2- Moves 4 extremities sustained head lift Circulation 2- SBP +/= 20 points of pre-anesthetic level Circulation 2- SBP +/= 20 points of pre-anesthetic level Consciousness 2- Awake and alert oriented x 3 Consciousness 2- Awake and alert oriented x 3 O2 Saturation 2- Able to maintain O2 satruation of 92% on room air O2 Saturation 2- Able to maintain O2 satruation of 92% on room air Respiratory 2- Able to deep breathe and cough well Respiratory 2- Able to deep breathe and cough well Total Score 10 Total Score 10 Contrast Agent: Isovue Diagnostic Contrast: 75 ml Total Contrast: 75 ml Fluoro Dose: 736 mGy Procedure Log Time Note Enter By 03:44 PM CathStat 03:46 PM Case Start 03:46 PM [facility] Patient charges- Angio tray pack, Navilyst 3mm J, Pulse Oximetry and ACIST tubing and transducer 03:46 PM IV Supplies used: J loop Angio Cath. mm 03:53 PM Physician arrived 15:53 oumm 03:53 PM Vignesh completed oumm 03:54 PM Sign in performed according to hospital policy. mm 03:54 PM Procedure start 15:54 oummers 03:54 PM ASA Class CLASS III- Severe systemic disease (i.e. prior AMI, diabetes with vascular complications, morbid obesity) cedwards 03:54 PM Case Delayed no oummers 03:55 PM Hair removed from procedure site in procedure lab using clippers. Bilateral groin prepped with Chloraprep by Binh Smith (R), then patient was draped. Skin intact. 03: PM Time: 15:55 Oxygen on at 2 L/min per nasal cannula by Donny Schaeffer RN 03:56 PM Donny Schaeffer RN Position: Lead Dental Assistant Time in: 15: 03:56 PM Kerwin Medina RN Position: Monitor Time in: 15: 03:57 PM Binh Smith RT (R) Position: Scrub Time in: ::57 PM Time: 15:57 Patient comfortable and pain free: Yes PM Time: 15:57LOC: 5 = Fully awake and oriented or at pre-proc level 03:59 PM Vitals capture started with the following parameters, Patient=Adult, Interval=5 min, Initial Bmcirsxe=543 mmHg, Deflation Rate=5 mmHg, Cuff placed on Right Arm 03:59 PM HR=96 bpm, TPVX=946/70 mmhg, NgE8=141.0 %, Comment=nsr 04:00 PM Time: 16:00 Oxygen on at 2 L/min per nasal cannula by Donny Schaeffer RN cedwards 04:00 PM Time: 16:00 Patient comfortable and pain free: Yes ced 04:00 PM Time: 16:00LOC: 5 = Fully awake and oriented or at pre-proc level cedwards 04:01 PM Time: 16:01 Versed 2 mg Intravenous Given by Donny Schaeffer RN cedwards 04:03 PM Pressure channel 2 zeroed. 04:04 PM HR=74 bpm, IYGK=447/58 mmhg, SpO2=99.0 %, Comment=nsr 04:08 PM Clinical Presentation: Unstable angina cedwards 04:08 PM Time out performed according to hospital policy cedwards 04:08 PM Time: 16:08 10 ml Lidocaine 2% to right groin Subcutaneous Given by Raf Gonzáles DO cedwards 04:09 PM HR=86 bpm, WFWI=997/62 mmhg, AvC2=484.0 % 04:12 PM Micro-Introducer Kit utilized for sheath placement cedwards 04:13 PM Access obtained by percutaneous puncture. 6Fr 10cm Terumo [place] sheath placed in right Femoral artery. [id number] cedwards 04:13 PM 6Fr FR 4 catheter inserted over the wire [facility] cedwards 04:14 PM IN=621 bpm, EPYE=218/68 mmhg, ScQ3=911.0 % 04:15 PM Recorded Pressure: LV, HR=50, Condition=Condition 1 (Left Ventricle) LV 89/-5/1 04:15 PM Recorded Pressure: LV, Ao, HR=82, Condition=Condition 1 (Left Ventricle) LV 66/-4/3, (Aorta) Ao 94/47/66 04:15 PM Time: 16:00LOC: 4 = Oriented but drowsy cedwards 04:15 PM Time: 16:00 Patient comfortable and pain free: Yes cedwards 04:15 PM Catheter selectively placed in left ventricle cedwards 04:15 PM Bolus angiogram of left Ventricle complete cedwards 04:17 PM Recorded Pressure: Ao, HR=88, Condition=Condition 1 (Aorta) Ao 107/54/76 04:17 PM unable to engage RCA with FR4 cedwards 04:18 PM Catheter removed cedwards 04:18 PM 6Fr FL 4 catheter inserted over the wire [facility] cedwards 04:19 PM LCA angiography performed in multiple views. cedwards 04:20 PM HR=76 bpm, DFHX=620/67 mmhg, XhT5=274.0 %, Comment=nsr 04:20 PM Catheter removed cedwards 04:21 PM 6Fr JR 4 Runway guide catheter was used to cannulate the PCI vessel successfully. reused? No cedwards 04:21 PM RCA angiography performed in multiple views. cedwards 04:24 PM HR=73 bpm, VBZB=736/77 mmhg, EqH8=556.0 % 04:25 PM Guide Catheter removed ced 04:26 PM Cardiothoracic surgeon consulted by physician [facility] 04: PM Procedure completed at 16:26 cedwards 04:26 PM Did you address BRENDON flow and Dominance? Yes ced 04:28 PM Sign out completed: Radiation Dose 735.76 mGy Fluoro Time: 4 Isovue 370 - 200ml contrast 75 ml given by Raf Gonzáles DO. Complications: NoneCardiac Rehab Consult needed: NoConfirmed administered medications: Yes ced 04:28 PM Isovue 370 - 200ml,1 Bottle(s) used. ced 04:28 PM Arterial sheath pulled using manual compression and V+ Pad for 20 minutes by Harika Hinkle RN ced:28 PM Estimated Blood Loss: minimal cedwards 04:28 PM Post ECG NSR cedwards 04:29 PM Post Blood Pressure 139/77 cedwards 04:29 PM Information taught Cardiac Cath cedwards 04:29 PM Learning barriers :None cedwards 04:29 PM Education Methods Verbal cedwards 04:29 PM Education evaluation Able to repeat information cedwards 04:29 PM Site status No bleeding/hematoma - Rt Groin as reported by Harika Hinkle RN at 16:29 cedwards 04:29 PM Opsite applied cedwards 04:29 PM Plavix, Effient or Brilinta given No cedwards 04:29 PM HR=73 bpm, SBLB=215/69 mmhg, HfY9=299 % 04:30 PM Complications: None cedwards 04:30 PM Fluoro Time: 4 cedwards 04:30 PM Isovue 370 - 200ml contrast [address] Gonzáles. cedwards 04:30 PM Radiation Dose 735.76 mGy cedwards 04:33 PM Lesion found in Proximal RCA. Pre Stenosis: 100 Pre BRENDON Flow: cedwards 04:33 PM Lesion found in Proximal LAD. Pre Stenosis: 70 Pre BRENDON Flow: cedwards 04:33 PM Lesion found in Distal LAD. Pre Stenosis: 50 Pre BRENDON Flow: cedwards 04:34 PM Lesion found in Distal Circumflex. Pre Stenosis: 80 Pre BRENDON Flow: cedwards 04:35 PM HR=75 bpm, BHFJ=217/76 mmhg, SpO2=95.0 % 04:39 PM HR=93 bpm, XFIQ=646/78 mmhg, SpO2=99 % 04:40 PM Coronary Dominance: right cedwards 04:45 PM Report given to Ana GARNER Pt taken to Room #35. 16:44 cedwards 04:45 PM Patient out of room: 16:45 cedwards Complications Complication None None Hemodynamics Pressures Site Systolic/A Wave Diastolic/V Wave Mean LV 89 -5 1 LV 66 -4 3 AO 94 47 66 AO 107 54 76 Post Procedure Information Blood Pressure: 139/77 mmHg Rhythm: NSR Post procedural instructions were given Surgery consult for CABG Closure Device Time Device Success/Fail 05/12/2018 4:31:00 PM Manual Compression Successful Site Checks Time Location Status Staff Sheath In? Note 04:29 PM Rt Groin No bleeding/hematoma Harika Hinkle RN Pulses Time Site Pre-Procedure Post-Procedure Note 05/12/2018 2:19:00 PM Bilateral radial 2+ 05/12/2018 2:19:00 PM Bilateral DP 2+ 05/12/2018 2:19:00 PM Bilateral PT 1+ Updated by Kerwin Medina RN on 05/12/2018 4:45:39 PM electronically signed on 05/12/2018 4:46:16 PM with status of Final
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
[2018-05-12] MEDS: Insulin DETEMIR 100 UNIT/ML X5UNITS SQ SCH (20:40)
[2018-05-12] MEDS: Melatonin 3 MG TABLET PO SCH (20:43)
[2018-05-12] MEDS: risperiDONE 1 MG TABLET PO SCH (20:44)
[2018-05-12] MEDS ORDERED: Insulin DETEMIR 100 UNIT/ML X5UNITS SQ SCH (21:00)
[2018-05-13] MEDS: *HR* OxyCODONE/APAP 5/325 TABLET PO PRN ×5 (02:28→21:28)
[2018-05-13 06:54] LABS: Basophils % 0.3 %; Eosinophils # 0.2 K/mcL (0.0-0.6); Eosinophils % 2.5 %; Hematocrit 37.7 % (37.5-50.1); Hemoglobin 12.3 g/dL (12.9-16.9); Immature Granulocytes % 0.4 % (0-4); Lymphocytes # 2.7 K/mcL (0.6-4.6); Lymphocytes % 34.5 %; Mean Corpuscular HGB Conc 32.6 g/dL (31.6-35.5); Mean Platelet Volume 9.1 fL (9.4-12.4); Monocytes # 0.7 K/mcL (0.0-1.3); Monocytes % 8.6 %; Neutrophils # 4.1 K/mcL (1.6-8.9); Platelet Count 156 K/mcL (140-400); Red Cell Distribution Width 13.5 % (11.5-14.5); Segmented Neutrophils % 53.7 %
[2018-05-13 07:12] LABS: BUN/Creatinine Ratio 38 (6-26); Blood Urea Nitrogen 24 mg/dL (6-20); Calcium 9.2 mg/dL (8.6-10.3); Carbon Dioxide 27 mEq/L (23-29); Chloride 106 mEq/L (98-107); Glucose 149 mg/dL (70-105); Osmolality,Calculated 293 (280-300); Potassium 3.9 mEq/L (3.5-5.1); Sodium 138 mEq/L (136-145); eGFR For African Americans > 60 (> 60); eGFR For Non-African Americans > 60 (> 60)
[2018-05-13] MEDS: Tiotropium 18 MCG inhalation IH SCH (07:24)
[2018-05-13] MEDS: Budesonide/Formoterol 160/4.5 MDI IH SCH ×2 (07:24→20:50)
[2018-05-13] MEDS: Insulin LISPRO 300 UNITS/3 ML VIAL SQ SCH ×4 (07:38→21:29)
[2018-05-13] MEDS: amLODIPine 5 MG TABLET PO SCH (08:18)
[2018-05-13] MEDS: Acetaminophen 325 MG TABLET PO PRN ×2 (08:18→20:21)
[2018-05-13] MEDS: Cholecalciferol (D-3) 1,000 UNIT TABLET PO SCH (08:18)
[2018-05-13] MEDS: Famotidine 20 MG TABLET PO SCH ×2 (08:18→21:28)
[2018-05-13] MEDS: Gabapentin 300 MG CAPSULE PO SCH ×3 (08:18→21:28)
[2018-05-13] MEDS: Furosemide 40 MG/4 ML VIAL IVP SCH ×2 (08:19→17:43)
[2018-05-13] MEDS: Sennosides/Docusate Sodium TABLET PO SCH (08:19)
[2018-05-13] MEDS: Aspirin Enteric Coated 81 MG Tablet PO SCH (08:19)
--- NOTE | 2018-05-13 08:52 | Internal Med Progress Note ---
<Florina Ghotra - Last Filed: 05/13/18 08:53> Date of Encounter: 05/13/18 Time of Encounter: 08:50 - Assessment and plan (1) Chest pain Current Visit: Yes Status: Acute Assessment and plan: Negative serial troponins EKG reviewed showed normal sinus rhythm no acute ischemic changes noticed Continue on ASA, Nitro PRN for pain Continue potline monitor LHC completed yesterday showed multivessel disease Cardiothoracic surgery consulted for further recommendations Qualifiers: Chest pain type: chest pain due to myocardial ischemia Ischemic chest pain type: stable angina pectoris Qualified Code(s): I20.8 - Other forms of angina pectoris (2) History of coronary artery disease Current Visit: Yes Status: Acute Assessment and plan: CAD status post cardiac stents x 5 Patient did mention he was off Plavix since last year Continue aspirin and beta monroe Continue Amoldipine 10mg PO daily Resume home ACEI (3) Hypertension Current Visit: Yes Status: Acute Assessment and plan: Continue beta monroe Continue Amoldipine 10mg PO daily Resume home ACEI Qualifiers: Hypertension type: essential hypertension Qualified Code(s): I10 - Essential (primary) hypertension (4) Diabetes type 2, controlled Current Visit: Yes Status: Acute Assessment and plan: Hemoglobin A-1 C 7.3 Continue insulin sliding scale Continue home insulin medication Qualifiers: Diabetes mellitus oysterman insulin use: without skilled nursing use Diabetes mellitus complication status: without complication Qualified Code(s): E11.9 - Type 2 diabetes mellitus without complications (5) History of CVA with residual deficit Current Visit: Yes Status: Acute Assessment and plan: Status post CVA with chronic left residual paralysis Continue aspirin PT/OT consulted (6) Acute exacerbation of CHF (congestive heart failure) Current Visit: Yes Status: Acute Assessment and plan: Echocardiograms revealed EF 60-65%, diastolic congestive heart failure BNP 87 Lasix IV given Continue Lasix PO daily and Metoprolol 20 mg PO BID check daily weights and electrolytes closely Qualifiers: Heart failure type: diastolic Qualified Code(s): I50.33 - Acute on chronic diastolic (congestive) heart failure (7) DVT prophylaxis Current Visit: Yes Status: Acute Assessment and plan: Heparin subQ - Time Spent With Patient Total time spent is greater than 50% in coordination of care (as documented) at patient's floor/unit and/or counseling patient: - Subjective Interval history: Patient states he is doing well this morning. Denies any chest pain, pressure or palpitations. LHC completed yesterday and showed multivessel disease. Cardiothoracic surgery consulted. Patient states he would like to go to [facility] once he is discharged from the hospital for rehabilitation. - Constitutional Vitals: Temp Pulse Resp BP Pulse Ox 98.2 F 78 15 132/84 97 05/13/18 07:01 05/13/18 07:01 05/13/18 07:26 05/13/18 07:01 05/13/18 07:26 General appearance: Present: A&O X 3, no acute distress, answers questions appropriately - Head Head exam: Present: atraumatic, normocephalic - Respiratory Respiratory exam: Absent: accessory muscle use, respiratory distress, wheezes Additional comments: Decreased breath sounds throughout - Cardiovascular Cardiovascular exam: Present: RRR, +S1, +S2. Absent: gallop, rubs - GI/Abdominal GI/Abdominal exam: Present: normal bowel sounds, soft, no peritoneal signs. Absent: distended, tenderness - Neurological Exam Additional comments: Left sided weakness Internal Medicine: Result - Labs CBC & Chem 7: 05/13/18 06:38 05/13/18 06:38 Labs: Short CBC 05/13/18 Range/Units 06:38 WBC 7.7 (4.3-11.1) K/mcL Hgb 12.3 L (12.9-16.9) g/dL Hct 37.7 (37.5-50.1) % Plt Count 156 (140-400) K/mcL Neutrophils # 4.1 (1.6-8.9) K/mcL BMP 05/13/18 06:38 Sodium 138 Potassium 3.9 Chloride 106 Carbon Dioxide 27 BUN 24 H Creatinine 0.63 L Glucose 149 H Calcium 9.2 - ABG Interpretation ABG results: PT/INR, D-dimer PT 12.3 Seconds (9.4-12.1) H 05/10/18 05:51 - VTE Documentation of Mechanical Device: Graduated compression elastic hosiery Consult Discharge Plan - Plan Referrals: NONE,PCP [Primary Care Provider] - <Cristela Dodson - Last Filed: 05/13/18 13:51> Date of Encounter: 05/13/18 - Assessment and plan (1) Chest pain Current Visit: Yes Status: Acute Qualifiers: Chest pain type: chest pain due to myocardial ischemia Ischemic chest pain type: unstable angina pectoris Qualified Code(s): I20.0 - Unstable angina (2) History of coronary artery disease Current Visit: Yes Status: Acute (3) Hypertension Current Visit: Yes Status: Acute Qualifiers: Hypertension type: essential hypertension Qualified Code(s): I10 - Essential (primary) hypertension (4) Diabetes type 2, controlled Current Visit: Yes Status: Acute Qualifiers: Diabetes mellitus skilled nursing insulin use: without oysterman use Diabetes mellitus complication status: without complication Qualified Code(s): E11.9 - Type 2 diabetes mellitus without complications (5) History of CVA with residual deficit Current Visit: Yes Status: Acute (6) Acute exacerbation of CHF (congestive heart failure) Current Visit: Yes Status: Acute Qualifiers: Heart failure type: diastolic Qualified Code(s): I50.33 - Acute on chronic diastolic (congestive) heart failure (7) DVT prophylaxis Current Visit: Yes Status: Acute - Time Spent With Patient Total time spent is greater than 50% in coordination of care (as documented) at patient's floor/unit and/or counseling patient: - Constitutional Vitals: Temp Pulse Resp BP Pulse Ox 98.1 F 64 14 122/78 94 05/13/18 11:09 05/13/18 11:09 05/13/18 11:09 05/13/18 11:09 05/13/18 11:09 Internal Medicine: Result - Labs CBC & Chem 7: 05/13/18 06:38 05/13/18 06:38 Labs: Short CBC 05/13/18 Range/Units 06:38 WBC 7.7 (4.3-11.1) K/mcL Hgb 12.3 L (12.9-16.9) g/dL Hct 37.7 (37.5-50.1) % Plt Count 156 (140-400) K/mcL Neutrophils # 4.1 (1.6-8.9) K/mcL BMP 05/13/18 06:38 Sodium 138 Potassium 3.9 Chloride 106 Carbon Dioxide 27 BUN 24 H Creatinine 0.63 L Glucose 149 H Calcium 9.2 - ABG Interpretation ABG results: PT/INR, D-dimer PT 12.3 Seconds (9.4-12.1) H 05/10/18 05:51 - Attending Attestation I examined this patient and my medical decision-making was reviewed with the Resident Physician Dr. Ghotra. I agree with the documented findings, disposition and treatment plan as described except to the extent set forth below. Mr. Da Silva is a 57 year old male with known past medical history of CAD status post cardiac stents x 5, HTN, hyperlipidemia and history of CVA status post chronic left residual paralysis who is currently not on any anti platelet medication presented emergency room at [facility] with chest pain from last couple of days. Patient stated he got chest pain while at rest, located left chest wall region, radiated to his left shoulder, intermittent and 5 out of 10 in severity. Patient states over all he feels better today. Denied any CP. Gen: A, A, O x 3 Chest: Diminished BS b/l Heart: S1S2 + Ext: b/l LE edema a/p 1. Acute chest pain 2. Acute CAD so far negative troponin x 3 No acute EKG changes 2D Echo showed LVEF 60-65%, Mild LV diastolic dysfunction Unable to do stress test since pt is not able to lie flat Reviewed his Dobutamine Echo - unclear Had LHC on 05/12/18 showed 100% stenosis of RCA, 70% LAD stenosis and an 80% circumflex stenosis CTS recommend for medical management since he is high risk for surgery with possible stroke Card suggested out pt LHC for PCI. 3. Acute diastolic CHF exacerbation Echo reviewed Cont lasix 4. Uncontrolled HTN Improved with current regimen Metoprolol + Lasix Norvasc 10mg 5. Physical deconditioning - PT / OT recommend ECF placement Pt does have complex medical problems, need to stay in the hospital more than 5 days and more procedures. So will change him to full admission today. I reviewed my H& P including HPI, PMH, PSH, FH , SH and ROS. No changes noticed
--- NOTE | 2018-05-13 09:03 | Cardiothoracic Progress Note ---
Date of Encounter: 05/13/18 Time of Encounter: 09:00 - Assessment and plan (1) Chest pain Current Visit: Yes Status: Acute Carotid duplex results are pending. He is considering PTCA and stent placement versus surgery. Surgery would have an increased risk of stroke because of his 2 previous strokes. In addition, his postoperative course will be complicated by his inability to stand or walk. The patient favors PTCA with stent placement. I agree that this would be the best choice. I will discuss with cardiology whether this is an option. Qualifiers: Chest pain type: chest pain due to myocardial ischemia Ischemic chest pain type: stable angina pectoris Qualified Code(s): I20.8 - Other forms of angina pectoris - Subjective Interval history: The patient has had no chest pain and no angina. He has had a history of 2 strokes, one in 2012 in 1 in 2018 of this year. He has weakness in both legs and severe weakness in his left arm. He is nonambulatory and is unable to stand. He uses a wheelchair. Vital Signs, Last 4 Hours Temp Pulse Resp BP Pulse Ox 05/13/18 07:26 15 97 05/13/18 07:01 98.2 F 78 14 132/84 98 Weight 05/11/18 05/12/18 05/13/18 23:59 23:59 23:59 Weight 110.7 kg 108.2 kg 111.8 kg Lungs are clear to percussion and auscultation. Heart is in a normal sinus rhythm. - Labs 05/13/18 06:38 05/13/18 06:38 Lab Results, Last 24 hours 05/13/18 05/13/18 06:38 06:38 WBC 7.7 Hgb 12.3 L Hct 37.7 Plt Count 156 Sodium 138 Potassium 3.9 Chloride 106 Carbon Dioxide 27 BUN 24 H Creatinine 0.63 L Glucose 149 H Calcium 9.2 - VTE Documentation of Mechanical Device: Graduated compression elastic hosiery Consult Discharge Plan - Plan Referrals: NONE,PCP [Primary Care Provider] -
--- NOTE | 2018-05-13 09:54 | Cardiology Progress Note ---
<Don Garcia - Last Filed: 05/13/18 11:02> Date of Encounter: 05/13/18 Time of Encounter: 09:50 Assessment and Plan (1) Chest pain Current Visit: Yes Status: Acute Unstable angina with multi-vessel disease. 100% RCA occlusion, non-graftable. 70% LAD stenosis. 80% circumflex stenosis. Pt wishes to pursue repeat PTCA. He is willing to undergo CABG if necessary at any point. Asymptomatic at this point. - discussed case with Dr. Gonzáles who performed initial LHC; recommends close follow up with OP LHC/PTCA - follow up in clinic will be arranged - cardiology will sign off at this time Qualifiers: Chest pain type: chest pain due to myocardial ischemia Ischemic chest pain type: unstable angina pectoris Qualified Code(s): I20.0 - Unstable angina Discussion w patient/family: The assessment and plan as outlined above was discussed with the patient and/or family members who expressed understanding and agreement. All questions were answered. Thank you for involving us in the care of your patient. Please call with any questions. Subjective Principal diagnosis: Chest Pain Interval history: LHC completed 05/12/18 with triple-vessel disease prompting CTS consult. Patient was disinclined to proceed with CABG, and per CTS note, pt would be high risk for surgical intervention given recent stroke with residual deficits. VS reviewed. Pt symptomatically stable at this time. No acute concerns. Objective Vital Signs, Last 4 Hours Temp Pulse Resp BP Pulse Ox 05/13/18 07:26 15 97 05/13/18 07:01 98.2 F 78 14 132/84 98 General: Conversant, No Apparent Distress HEENT: Atraumatic, Normocephaly, Mucus Membranes Moist Neck: Normal carotid pulses Cardiac: Reg Rate and Rhythm, Normal S1 and S2, No Murmur Lungs: Normal Breath Sounds, No Wheeze, Rales, Rhonchi Neuro: Alert and responsive, Other (Residual left extremity deficits from CVA in December 2017) Abdomen: Soft, Non-Tender Skin: No rashes noted on visualized skin Musculoskeletal: No Chest Wall Tenderness Extremities: No Clubbing, No Cyanosis, Normal Pulses, Other (Stable 1+ pitting edema bilateral LEs) Results 05/13/18 06:38 05/13/18 06:38 Lab Results 06/15/18 06/15/18 06:38 06:38 WBC 7.7 Hgb 12.3 L Hct 37.7 Plt Count 156 Sodium 138 Potassium 3.9 Chloride 106 Carbon Dioxide 27 BUN 24 H Creatinine 0.63 L Glucose 149 H Calcium 9.2 - VTE Documentation of Mechanical Device: Graduated compression elastic hosiery Consult Discharge Plan - Plan Referrals: NONE,PCP [Primary Care Provider] - <PilarClarke - Last Filed: 05/13/18 12:46> Date of Encounter: 05/13/18 Assessment and Plan (1) Chest pain Current Visit: Yes Status: Acute Unstable angina with multi-vessel disease. 100% RCA occlusion, non-graftable. 70% LAD stenosis. 80% circumflex stenosis. Pt wishes to pursue repeat PTCA. He is willing to undergo CABG if necessary at any point. Asymptomatic at this point. - discussed case with Dr. Gonzáles who performed initial LHC; recommends close follow up with OP LHC/PTCA - follow up in clinic will be arranged - cardiology will sign off at this time I examined this patient and my medical decision-making was reviewed with the Resident Physician. I agree with the documented findings, disposition and treatment plan as described except to the extent set forth below. Severe 3 vessel disease discussed with Dr. Gonzáles an okay for OP staged PCI, patient seen by CT surgery and patient wishes to pursue PCI Qualifiers: Chest pain type: chest pain due to myocardial ischemia Ischemic chest pain type: unstable angina pectoris Qualified Code(s): I20.0 - Unstable angina Discussion w patient/family: The assessment and plan as outlined above was discussed with the patient and/or family members who expressed understanding and agreement. All questions were answered. Thank you for involving us in the care of your patient. Please call with any questions. Objective Vital Signs, Last 4 Hours Temp Pulse Resp BP Pulse Ox 05/13/18 11:09 98.1 F 64 14 122/78 94 Results 05/13/18 06:38 05/13/18 06:38 Lab Results 05/13/18 05/13/18 06:38 06:38 WBC 7.7 Hgb 12.3 L Hct 37.7 Plt Count 156 Sodium 138 Potassium 3.9 Chloride 106 Carbon Dioxide 27 BUN 24 H Creatinine 0.63 L Glucose 149 H Calcium 9.2
[2018-05-13] MEDS: Melatonin 3 MG TABLET PO SCH (21:28)
[2018-05-13] MEDS: risperiDONE 1 MG TABLET PO SCH (21:28)
[2018-05-13] MEDS: Insulin DETEMIR 100 UNIT/ML X5UNITS SQ SCH (21:29)
[2018-05-14] MEDS: *HR* OxyCODONE/APAP 5/325 TABLET PO PRN ×5 (04:14→23:04)
[2018-05-14 05:37] LABS: Basophils % 0.3 %; Eosinophils # 0.2 K/mcL (0.0-0.6); Eosinophils % 3.5 %; Hematocrit 37.4 % (37.5-50.1); Hemoglobin 12.3 g/dL (12.9-16.9); Immature Granulocytes % 0.5 % (0-4); Lymphocytes # 2.7 K/mcL (0.6-4.6); Lymphocytes % 41.7 %; Mean Corpuscular HGB Conc 32.9 g/dL (31.6-35.5); Mean Corpuscular Hemoglobin 30.4 pg (28.0-33.3); Mean Corpuscular Volume 92.3 fL (83.0-100.0); Mean Platelet Volume 9.2 fL (9.4-12.4); Monocytes # 0.5 K/mcL (0.0-1.3); Monocytes % 7.4 %; Platelet Count 165 K/mcL (140-400); Red Blood Count 4.05 M/mcL (4.19-5.50); Red Cell Distribution Width 13.1 % (11.5-14.5); Segmented Neutrophils % 46.6 %
[2018-05-14 05:49] LABS: BUN/Creatinine Ratio 33 (6-26); Blood Urea Nitrogen 21 mg/dL (6-20); Calcium 9.4 mg/dL (8.6-10.3); Carbon Dioxide 24 mEq/L (23-29); Chloride 105 mEq/L (98-107); Glucose 163 mg/dL (70-105); Osmolality,Calculated 293 (280-300); Potassium 3.7 mEq/L (3.5-5.1); Sodium 138 mEq/L (136-145); eGFR For African Americans > 60 (> 60); eGFR For Non-African Americans > 60 (> 60)
[2018-05-14] MEDS: Budesonide/Formoterol 160/4.5 MDI IH SCH ×2 (07:39→20:49)
[2018-05-14] MEDS: Tiotropium 18 MCG inhalation IH SCH (07:39)
[2018-05-14] MEDS: Cholecalciferol (D-3) 1,000 UNIT TABLET PO SCH (09:21)
[2018-05-14] MEDS: Sennosides/Docusate Sodium TABLET PO SCH (09:21)
[2018-05-14] MEDS: amLODIPine 5 MG TABLET PO SCH (09:22)
[2018-05-14] MEDS: Famotidine 20 MG TABLET PO SCH ×2 (09:22→20:37)
[2018-05-14] MEDS: Gabapentin 300 MG CAPSULE PO SCH ×3 (09:22→20:37)
[2018-05-14] MEDS: Aspirin Enteric Coated 81 MG Tablet PO SCH (09:22)
[2018-05-14] MEDS: Insulin LISPRO 300 UNITS/3 ML VIAL SQ SCH ×4 (09:23→20:38)
--- NOTE | 2018-05-14 09:44 | Cardiothoracic Progress Note ---
Date of Encounter: 05/14/18 Time of Encounter: 09:41 - Assessment and plan (1) Chest pain Current Visit: Yes Status: Acute Carotid duplex reveals bilateral 60-79% blockage. The patient has a history of 2 previous strokes. One was in 2011 and the latest was in December 2017. His legs are weak. He is unable to stand or walk and uses a wheelchair. His left arm is also quite weak. The patient is at high risk for stroke during open heart surgery because of his 2 previous strokes in his severe carotid blockages. In addition, his postoperative recovery would be quite difficult in that he is nonambulatory. I favor PTCA of his LAD and circumflex vessels. This was discussed with the patient and he agrees. I will sign off. Please call if needed. Qualifiers: Chest pain type: chest pain due to myocardial ischemia Ischemic chest pain type: unstable angina pectoris Qualified Code(s): I20.0 - Unstable angina - Subjective Interval history: The patient has had no angina and no chest pain. Vital Signs, Last 4 Hours Temp Pulse Resp BP Pulse Ox 05/14/18 07:41 16 98 05/14/18 07:26 97.5 F L 86 18 160/80 99 Weight 05/12/18 05/13/18 05/14/18 23:59 23:59 23:59 Weight 108.2 kg 111.8 kg 111.5 kg Lungs are clear to percussion and auscultation. Heart is in a normal sinus rhythm. - Labs 05/14/18 04:46 05/14/18 04:46 Lab Results, Last 24 hours 05/14/18 05/14/18 04:46 04:46 WBC 6.5 Hgb 12.3 L Hct 37.4 L Plt Count 165 Sodium 138 Potassium 3.7 Chloride 105 Carbon Dioxide 24 BUN 21 H Creatinine 0.64 L Glucose 163 H Calcium 9.4 - VTE Documentation of Mechanical Device: Graduated compression elastic hosiery Consult Discharge Plan - Plan Referrals: Raf Gonzáles DO [Partnered Physician] - 05/25/18 8:00 am NONE,PCP [Primary Care Provider] -
--- NOTE | 2018-05-14 13:28 | Internal Med Progress Note ---
Date of Encounter: 05/14/18 Time of Encounter: 13:25 - Assessment and plan (1) Chest pain Current Visit: Yes Status: Acute Assessment and plan: Negative serial troponins EKG no acute ischemic changes 2D Echo showed LVEF 60-65%, Mild LV diastolic dysfunction Unable to do stress test since pt is not able to lie flat Had LHC on 05/12/18 showed 100% stenosis of RCA, 70% LAD stenosis and an 80% circumflex stenosis CTS recommend for medical management since he is high risk for surgery with possible stroke Card suggested out pt [facility] for PCI. Mean while started him on DAP ASA + Plavix, BB and ACEI Qualifiers: Chest pain type: chest pain due to myocardial ischemia Ischemic chest pain type: unstable angina pectoris Qualified Code(s): I20.0 - Unstable angina (2) Acute exacerbation of CHF (congestive heart failure) Current Visit: Yes Status: Acute Assessment and plan: Improved Switched to PO Lasix Cont BB, ACEI, ASA, Plavix and statin Qualifiers: Heart failure type: diastolic Qualified Code(s): I50.33 - Acute on chronic diastolic (congestive) heart failure (3) History of coronary artery disease Current Visit: Yes Status: Acute Assessment and plan: CAD status post cardiac stents x 5 cont current meds (4) Hypertension Current Visit: Yes Status: Acute Assessment and plan: Continue beta monroe Continue Amoldipine 10mg PO daily Resume home ACEI Qualifiers: Hypertension type: essential hypertension Qualified Code(s): I10 - Essential (primary) hypertension (5) Diabetes type 2, controlled Current Visit: Yes Status: Acute Assessment and plan: Hemoglobin A-1 C 7.3 Continue insulin sliding scale Continue home insulin medication Qualifiers: Diabetes mellitus long term care pharmacist insulin use: without long term care pharmacist use Diabetes mellitus complication status: without complication Qualified Code(s): E11.9 - Type 2 diabetes mellitus without complications (6) History of CVA with residual deficit Current Visit: Yes Status: Acute Assessment and plan: Status post CVA with chronic left residual paralysis Started him on aspirin PT/OT consulted (7) DVT prophylaxis Current Visit: Yes Status: Acute Assessment and plan: Heparin subQ (8) Physical deconditioning Current Visit: Yes Status: Acute Assessment and plan: PT / OT eval Need ECF placement - Time Spent With Patient Total time spent is greater than 50% in coordination of care (as documented) at patient's floor/unit and/or counseling patient: - Subjective Interval history: Mr. Da Silva is a 57 year old male with known past medical history of CAD status post cardiac stents x 5, HTN, hyperlipidemia and history of CVA status post chronic left residual paralysis who is currently not on any anti platelet medication presented emergency room at [facility] with chest pain from last couple of days. Patient stated he got chest pain while at rest, located left chest wall region, radiated to his left shoulder, intermittent and 5 out of 10 in severity. he did go for [facility] on 05/12/18. Now patient states over all he feels better today. Denied any CP. - Constitutional Vitals: Temp Pulse Resp BP Pulse Ox 98.0 F 74 16 127/77 97 05/14/18 11:01 05/14/18 11:01 05/14/18 11:01 05/14/18 11:01 05/14/18 11:01 General appearance: Present: A&O X 3, no acute distress, answers questions appropriately - Head Head exam: Present: atraumatic, normal inspection - Neck Neck exam general surgery: Present: supple - Respiratory Respiratory exam: Present: decreased breath sounds. Absent: rales, respiratory distress, rhonchi, wheezes - Cardiovascular Cardiovascular exam: Present: RRR, +S1, +S2. Absent: tachycardia - GI/Abdominal GI/Abdominal exam: Present: normal bowel sounds, soft. Absent: rebound, rigid, tenderness - Extremities Exam Extremities exam: Present: pedal edema. Absent: calf tenderness, tenderness - Neurological Exam Neurological exam: Present: alert, oriented X3 - Psychiatric Psychiatric exam: Present: depressed Internal Medicine: Result - Labs CBC & Chem 7: 05/14/18 04:46 05/14/18 04:46 Labs: Short CBC 05/14/18 Range/Units 04:46 WBC 6.5 (4.3-11.1) K/mcL Hgb 12.3 L (12.9-16.9) g/dL Hct 37.4 L (37.5-50.1) % Plt Count 165 (140-400) K/mcL Neutrophils # 3.0 (1.6-8.9) K/mcL BMP 05/14/18 04:46 Sodium 138 Potassium 3.7 Chloride 105 Carbon Dioxide 24 BUN 21 H Creatinine 0.64 L Glucose 163 H Calcium 9.4 - ABG Interpretation ABG results: PT/INR, D-dimer PT 12.3 Seconds (9.4-12.1) H 05/10/18 05:51 - VTE Documentation of Mechanical Device: Graduated compression elastic hosiery Consult Discharge Plan - Plan Referrals: Raf Gonzáles DO [Partnered Physician] - 05/25/18 8:00 am NONE,PCP [Primary Care Provider] -
[2018-05-14] MEDS: Furosemide 20 MG TABLET PO SCH (17:06)
[2018-05-14] MEDS: Insulin DETEMIR 100 UNIT/ML X5UNITS SQ SCH (20:37)
[2018-05-14] MEDS: Melatonin 3 MG TABLET PO SCH (20:37)
[2018-05-14] MEDS: risperiDONE 1 MG TABLET PO SCH (20:37)
[2018-05-15] MEDS: *HR* OxyCODONE/APAP 5/325 TABLET PO PRN ×4 (04:22→20:12)
[2018-05-15 05:09] LABS: BUN/Creatinine Ratio 34 (6-26); Blood Urea Nitrogen 21 mg/dL (6-20); Calcium 9.4 mg/dL (8.6-10.3); Carbon Dioxide 28 mEq/L (23-29); Chloride 103 mEq/L (98-107); Glucose 199 mg/dL (70-105); Magnesium 1.9 mg/dL (1.6-2.6); Osmolality,Calculated 291 (280-300); Sodium 136 mEq/L (136-145); eGFR For African Americans > 60 (> 60); eGFR For Non-African Americans > 60 (> 60)
[2018-05-15] MEDS: Budesonide/Formoterol 160/4.5 MDI IH SCH ×2 (07:35→20:18)
[2018-05-15] MEDS: Tiotropium 18 MCG inhalation IH SCH (07:35)
[2018-05-15] MEDS: Insulin LISPRO 300 UNITS/3 ML VIAL SQ SCH ×4 (07:57→22:07)
[2018-05-15] MEDS: Cholecalciferol (D-3) 1,000 UNIT TABLET PO SCH (08:20)
[2018-05-15] MEDS: amLODIPine 5 MG TABLET PO SCH (08:21)
[2018-05-15] MEDS: Sennosides/Docusate Sodium TABLET PO SCH (08:21)
[2018-05-15] MEDS: Furosemide 20 MG TABLET PO SCH ×2 (08:21→16:35)
[2018-05-15] MEDS: Gabapentin 300 MG CAPSULE PO SCH ×3 (08:21→20:11)
[2018-05-15] MEDS: Famotidine 20 MG TABLET PO SCH ×2 (08:21→20:12)
[2018-05-15] MEDS: Aspirin Enteric Coated 81 MG Tablet PO SCH (08:21)
--- NOTE | 2018-05-15 14:05 | Internal Med Progress Note ---
Date of Encounter: 05/15/18 Time of Encounter: 12:45 - Assessment and plan (1) Chest pain Current Visit: Yes Status: Acute Assessment and plan: Negative serial troponins EKG no acute ischemic changes 2D Echo showed LVEF 60-65%, Mild LV diastolic dysfunction Unable to do stress test since pt is not able to lie flat Had LHC on 05/12/18 showed 100% stenosis of RCA, 70% LAD stenosis and an 80% circumflex stenosis CTS recommend for medical management since he is high risk for surgery with possible stroke Card suggested out pt [facility] for PCI. Mean while started him on DAP ASA + Plavix, statin, BB and ACEI Qualifiers: Chest pain type: chest pain due to myocardial ischemia Ischemic chest pain type: unstable angina pectoris Qualified Code(s): I20.0 - Unstable angina (2) Acute exacerbation of CHF (congestive heart failure) Current Visit: Yes Status: Acute Assessment and plan: Improved Switched to PO Lasix Cont BB, ACEI, ASA, Plavix and statin Qualifiers: Heart failure type: diastolic Qualified Code(s): I50.33 - Acute on chronic diastolic (congestive) heart failure (3) History of coronary artery disease Current Visit: Yes Status: Acute Assessment and plan: CAD status post cardiac stents x 5 cont current meds (4) Hypertension Current Visit: Yes Status: Acute Assessment and plan: Continue beta monroe Continue Amoldipine 10mg PO daily Resume home ACEI Qualifiers: Hypertension type: essential hypertension Qualified Code(s): I10 - Essential (primary) hypertension (5) Diabetes type 2, controlled Current Visit: Yes Status: Acute Assessment and plan: Hemoglobin A-1 C 7.3 Continue insulin sliding scale Continue home insulin medication 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 Diabetes mellitus complication status: without complication Qualified Code(s): E11.9 - Type 2 diabetes mellitus without complications (6) History of CVA with residual deficit Current Visit: Yes Status: Acute Assessment and plan: Status post CVA with chronic left residual paralysis Started him on aspirin PT/OT consulted (7) DVT prophylaxis Current Visit: Yes Status: Acute Assessment and plan: Heparin subQ (8) Physical deconditioning Current Visit: Yes Status: Acute Assessment and plan: PT / OT eval Need ECF placement (9) Constipation Current Visit: Yes Status: Acute Assessment and plan: on bowel regimen Suppository PRN Qualifiers: Constipation type: unspecified constipation type Qualified Code(s): K59.00 - Constipation, unspecified - Time Spent With Patient Total time spent is greater than 50% in coordination of care (as documented) at patient's floor/unit and/or counseling patient: - Subjective Interval history: Mr. Da Silva is a 57 year old male with known past medical history of CAD status post cardiac stents x 5, HTN, hyperlipidemia and history of CVA status post chronic left residual paralysis who is currently not on any anti platelet medication presented emergency room at [facility] with chest pain from last couple of days. Patient stated he got chest pain while at rest, located left chest wall region, radiated to his left shoulder, intermittent and 5 out of 10 in severity. he did go for [facility] on 05/12/18. Now patient states over all he feels better today. Denied any CP. No events over night - Constitutional Vitals: Temp Pulse Resp BP Pulse Ox 98.1 F 86 16 148/78 95 05/15/18 11:15 05/15/18 11:15 05/15/18 11:15 05/15/18 11:15 05/15/18 11:15 General appearance: Present: A&O X 3, no acute distress, answers questions appropriately - Head Head exam: Present: atraumatic, normal inspection - Neck Neck exam general surgery: Present: supple - Respiratory Respiratory exam: Absent: respiratory distress, rhonchi, wheezes - Cardiovascular Cardiovascular exam: Present: RRR, +S1, +S2. Absent: tachycardia - GI/Abdominal GI/Abdominal exam: Present: normal bowel sounds, soft. Absent: rebound, rigid, tenderness - Extremities Exam Extremities exam: Present: pedal edema. Absent: calf tenderness, tenderness - Back Exam Back exam: Absent: CVA tenderness (L), CVA tenderness (R) - Psychiatric Psychiatric exam: Present: normal affect, normal mood Internal Medicine: Result - Labs CBC & Chem 7: 05/14/18 04:46 05/15/18 04:11 Labs: BMP 05/15/18 04:11 Sodium 136 Potassium 4.0 Chloride 103 Carbon Dioxide 28 BUN 21 H Creatinine 0.62 L Glucose 199 H Calcium 9.4 - ABG Interpretation ABG results: PT/INR, D-dimer PT 12.3 Seconds (9.4-12.1) H 05/10/18 05:51 - VTE Documentation of Mechanical Device: Graduated compression elastic hosiery Consult Discharge Plan - Plan Referrals: Raf Gonzáles DO [Partnered Physician] - 05/25/18 8:00 am NONE,PCP [Primary Care Provider] -
[2018-05-15] MEDS: Bisacodyl 10 MG RECTAL SUPPOSITORY RC PRN (16:30)
[2018-05-15] MEDS: Insulin DETEMIR 100 UNIT/ML X5UNITS SQ SCH (22:06)
[2018-05-15] MEDS: Melatonin 3 MG TABLET PO SCH (22:08)
[2018-05-16] MEDS: *HR* OxyCODONE/APAP 5/325 TABLET PO PRN ×2 (03:05→08:54)
[2018-05-16] MEDS: risperiDONE 1 MG TABLET PO SCH (03:05)
[2018-05-16] MEDS: Budesonide/Formoterol 160/4.5 MDI IH SCH (08:05)
[2018-05-16] MEDS: Tiotropium 18 MCG inhalation IH SCH (08:05)
[2018-05-16] MEDS: Aspirin Enteric Coated 81 MG Tablet PO SCH (08:46)
[2018-05-16] MEDS: Cholecalciferol (D-3) 1,000 UNIT TABLET PO SCH (08:46)
[2018-05-16] MEDS: amLODIPine 5 MG TABLET PO SCH (08:47)
[2018-05-16] MEDS: Famotidine 20 MG TABLET PO SCH (08:47)
[2018-05-16] MEDS: Gabapentin 300 MG CAPSULE PO SCH (08:47)
[2018-05-16] MEDS: Furosemide 20 MG TABLET PO SCH (08:47)
[2018-05-16] MEDS: Sennosides/Docusate Sodium TABLET PO SCH (08:48)
[2018-05-16] MEDS: Insulin LISPRO 300 UNITS/3 ML VIAL SQ SCH ×2 (08:48→12:14)
[2018-05-16 11:35] VITALS: BP 134/81
--- NOTE | 2018-05-16 12:29 | Discharge Summary ---
<Florina Ghotra - Last Filed: 05/16/18 12:26> Date of Encounter: 05/16/18 Time of Encounter: 12:26 - Discharge Diagnosis (1) Chest pain Priority: Primary Status: Acute Qualifiers: Chest pain type: chest pain due to myocardial ischemia Ischemic chest pain type: unstable angina pectoris Qualified Code(s): I20.0 - Unstable angina (2) History of coronary artery disease Priority: Secondary Status: Chronic (3) Hypertension Priority: Secondary Status: Chronic Qualifiers: Hypertension type: essential hypertension Qualified Code(s): I10 - Essential (primary) hypertension (4) Diabetes type 2, controlled Priority: Secondary Status: Chronic Qualifiers: Diabetes mellitus long term care pharmacist insulin use: without mcfp use Diabetes mellitus complication status: without complication Qualified Code(s): E11.9 - Type 2 diabetes mellitus without complications (5) History of CVA with residual deficit Priority: Secondary Status: Chronic (6) Acute exacerbation of CHF (congestive heart failure) Priority: Secondary Status: Acute Qualifiers: Heart failure type: diastolic Qualified Code(s): I50.33 - Acute on chronic diastolic (congestive) heart failure Hospital course: Mr. 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 Patient stated he got chest pain while at rest, located left chest wall region, radiated to his left shoulder, intermittent and 5 out of 10 in severity. Troponin cycled x4 on date of admission (05/08/18) all of which were less than 0.03; initial EKG without any acute ischemic findings. Echo on demonstrated LVEF of 60-65% & mild left ventricular diastolic dysfunction; no comparison study in [facility]. Dobutamine stress test on 05/11/18 was non- diagnostic due to habitus with several wall segments not visualized. C completed and showed 100% RCA occlusion, non-graftable. 70% LAD stenosis. 80% circumflex stenosis. Patient was disinclined to proceed with CABG, and per CTS note, pt would be high risk for surgical intervention given recent stroke with residual deficits. Cardiology will perform PCI as outpatient. No chest pain or shortness of breath at this time. - Time Spent with Patient Total time spent providing and/or coordinating discharge services: - Discharge Medications Prescriptions: Clopidogrel [Plavix] 75 mg PO DAILY #30 tablet Furosemide [Lasix] 20 mg PO BIDDIURETIC #60 tablet Metoprolol [Lopressor] 25 mg PO BID #60 tablet Home Medications: Oxycodone HCl/Acetaminophen [Percocet 5-325 mg Tablet] 1 tab PO TID PRN [History] Atorvastatin [Lipitor] 40 mg PO HS 05/11/18 [History] Budesonide/Formoterol 160/4.5 [Symbicort 160/4.5] 2 puff IH BIDR 05/11/18 [ History] Cholecalciferol (Vitamin D3) [Vitamin D3] 2,000 unit PO DAILY 05/11/18 [History] Diclofen Sod/Kinesiology Tape [Diclo Gel 1%-Xrylix Sheet Kit] 1 appl TP QID [History] Famotidine [Pepcid] 20 mg PO BID 05/11/18 [History] Gabapentin [Neurontin] 600 mg PO TID 05/11/18 [History] Ibuprofen 800 mg PO TID 05/11/18 [History] Insulin ASPART [Novolog Flexpen] 14 unit SQ TIDWM 05/11/18 [History] Insulin Glargine [Lantus] 75 unit SQ HS 05/11/18 [History] Lisinopril [Zestril] 5 mg PO DAILY 05/11/18 [History] Sennosides/Docusate Sodium [Senna-S Tablet] 1 tab PO DAILY PRN 05/11/18 [History ] Tiotropium [Spiriva] 1 puff IH DAILY 05/11/18 [History] risperiDONE [Risperidone] 2 mg PO TID 05/11/18 [History] Aspirin Enteric Coated [Aspirin EC] 81 mg PO DAILY tablet. 05/16/18 [Rx] Clopidogrel [Plavix] 75 mg PO DAILY #30 tablet 05/16/18 [Rx] Furosemide [Lasix] 20 mg PO BIDDIURETIC #60 tablet 05/16/18 [Rx] Metoprolol [Lopressor] 25 mg PO BID #60 tablet 05/16/18 [Rx] Allergies/Adverse Reactions: 3 Allergy/AdvReac Type Severity Reaction Status Date / Time hydrocodone Allergy Rash Verified 05/08/18 05:24 morphine Allergy Rash Verified 05/08/18 05:24 fluoxetine [From Prozac] AdvReac See Verified 05/08/18 05:24 Comments Varenicline [From Chantix] AdvReac See Verified 05/08/18 05:24 Comments Date of admission: 05/13/18 13:52 Primary care physician: PCP NONE Consults: 05/08/18 18:17 Consult to Ribbon Cleaner [CONS] Routine Reason for SW Consult: patient could benefit from home services. Lives at home with nephew who takes care of the patinet. Patient is primarly bed/chair ridden. No home services. 05/09/18 09:03 Consult to Nurse Navigator [CONS] Routine Comment: CHF 05/09/18 14:26 Consult to Occupational Therapy [CONS] Routine Comment: Evaluate, develop and implement POC Reason for Consult: pt had a stroke in Feb. Unambulatory. Lives at home with nephew, no home services. Patient is interested in ECF/SNF. Does patient have active BEDREST order?: No Is patient medically & hemodynamically stable?: Yes Consult to Physical Therapy [CONS] Routine Comment: Evaluate, develop and implement POC Reason for Consult: pt had a stroke in Feb. Unambulatory. Lives at home with nephew, no home services. Patient is interested in ECF/SNF. Does patient have active BEDREST order?: No Is patient medically & hemodynamically stable?: Yes 05/11/18 16:11 Consult to Cardiology [CONS] Routine Comment: Consulting Provider: Cardiology Yodit Reason for Consult: CP, CAD w/ 5 stents, nondiagnostic dobutamine stress echo Time Notified: 16:12 Call Completed: Yes 05/12/18 16:31 Consult to Cardiothoracic Surgery [CONS] Routine Consulting Provider: Cardiothoracic Surgery [place] Reason for Consult: CABG Time Notified: 14:30 Call Completed: Yes Discharging clinician: Florina Ghotra Anticipated date of discharge: 05/16/18 - Constitutional Vitals: Temp Pulse Resp BP Pulse Ox 97.6 F 79 16 134/81 98 05/16/18 11:30 05/16/18 11:30 05/16/18 11:30 05/16/18 11:30 05/16/18 11:30 General appearance: Present: A&O X 3, no acute distress, answers questions appropriately - Head Head exam: Present: atraumatic, normocephalic - Respiratory Respiratory exam: Present: CTAB. Absent: accessory muscle use, rales, rhonchi, wheezes - Cardiovascular Cardiovascular exam: Present: RRR, +S1, +S2. Absent: gallop, rubs - GI/Abdominal GI/Abdominal exam: Present: normal bowel sounds, soft, no peritoneal signs. Absent: distended, tenderness - Neurological Exam Additional comments: Residual left sided weakness - Patient Status Disposition: Transfer SNF Condition: Fair Overall status at discharge: patient is back to baseline - Discharge Instructions Follow Up With: Raf Gonzáles DO [Partnered Physician] - 05/25/18 8:00 am NONE,PCP [Primary Care Provider] - Additional Instructions: Please continue your home medications. Please start taking new medications including plavix, aspirin, lasix, and metoprolol. Please follow up with your primary care physician within one week. Please return for any new or worsening symptoms. - Diet and Activity Activity: as per physical therapy, increase activity as tolerated Diet: advance to your usual diet - VTE Documentation of Mechanical Device: Graduated compression elastic hosiery <Cristela Dodson - Last Filed: 05/16/18 18:12> Date of Encounter: 05/16/18 - Discharge Diagnosis (1) Chest pain Status: Acute Qualifiers: Chest pain type: chest pain due to myocardial ischemia Ischemic chest pain type: unstable angina pectoris Qualified Code(s): I20.0 - Unstable angina (2) Acute exacerbation of CHF (congestive heart failure) Status: Acute Qualifiers: Heart failure type: diastolic Qualified Code(s): I50.33 - Acute on chronic diastolic (congestive) heart failure (3) History of coronary artery disease Status: Chronic (4) Hypertension Status: Chronic Qualifiers: Hypertension type: essential hypertension Qualified Code(s): I10 - Essential (primary) hypertension (5) Diabetes type 2, controlled Status: Chronic Qualifiers: Diabetes mellitus mcfp insulin use: without long term care pharmacist use Diabetes mellitus complication status: without complication Qualified Code(s): E11.9 - Type 2 diabetes mellitus without complications (6) History of CVA with residual deficit Status: Chronic (7) DVT prophylaxis Status: Acute (8) Physical deconditioning Status: Acute (9) Constipation Status: Acute Qualifiers: Constipation type: unspecified constipation type Qualified Code(s): K59.00 - Constipation, unspecified Hospital course: Mr. Da Silva is a 57 year old male - Time Spent with Patient Total time spent providing and/or coordinating discharge services: Date of admission: 05/13/18 13:52 Primary care physician: PCP NONE Consults: 05/08/18 18:17 Consult to Ribbon Cleaner [CONS] Routine Reason for SW Consult: patient could benefit from home services. Lives at home with nephew who takes care of the patinet. Patient is primarly bed/chair ridden. No home services. 05/09/18 09:03 Consult to Nurse Navigator [CONS] Routine Comment: CHF 05/09/18 14:26 Consult to Occupational Therapy [CONS] Routine Comment: Evaluate, develop and implement POC Reason for Consult: pt had a stroke in Feb. Unambulatory. Lives at home with nephew, no home services. Patient is interested in ECF/SNF. Does patient have active BEDREST order?: No Is patient medically & hemodynamically stable?: Yes Consult to Physical Therapy [CONS] Routine Comment: Evaluate, develop and implement POC Reason for Consult: pt had a stroke in Feb. Unambulatory. Lives at home with nephew, no home services. Patient is interested in ECF/SNF. Does patient have active BEDREST order?: No Is patient medically & hemodynamically stable?: Yes 05/11/18 16:11 Consult to Cardiology [CONS] Routine Comment: Consulting Provider: Cardiology Yodit Reason for Consult: CP, CAD w/ 5 stents, nondiagnostic dobutamine stress echo Time Notified: 16:12 Call Completed: Yes 05/12/18 16:31 Consult to Cardiothoracic Surgery [CONS] Routine Consulting Provider: Cardiothoracic Surgery [place] Reason for Consult: CABG Time Notified: 14:30 Call Completed: Yes - Constitutional Vitals: Temp Pulse Resp BP Pulse Ox 97.6 F 79 16 134/81 98 05/16/18 11:30 05/16/18 11:30 05/16/18 11:30 05/16/18 11:30 05/16/18 11:30 - Attending Attestation I examined this patient and my medical decision-making was reviewed with the Resident Physician Dr. Ghotra. I agree with the documented findings, disposition and treatment plan as described except to the extent set forth below. Mr. Da Silva is a 57 year old male with known past medical history of CAD status post cardiac stents x 5, HTN, hyperlipidemia and history of CVA status post chronic left residual paralysis who is currently not on any anti platelet medication presented emergency room at [facility] with chest pain from last couple of days. Patient stated he got chest pain while at rest, located left chest wall region, radiated to his left shoulder, intermittent and 5 out of 10 in severity. Patient states over all he feels better today. Denied any CP. Gen: A, A, O x 3 Chest: Diminished BS b/l Heart: S1S2 + Ext: b/l LE edema a/p 1. Acute chest pain 2. Acute CAD so far negative troponin x 3 No acute EKG changes 2D Echo showed LVEF 60-65%, Mild LV diastolic dysfunction Unable to do stress test since pt is not able to lie flat Reviewed his Dobutamine Echo - unclear Had LHC on 05/12/18 showed 100% stenosis of RCA, 70% LAD stenosis and an 80% circumflex stenosis CTS recommend for medical management since he is high risk for surgery with possible stroke Card suggested out pt LHC for PCI. 3. Acute diastolic CHF exacerbation Echo reviewed Cont lasix 4. Uncontrolled HTN Improved with current regimen Metoprolol + Lasix Norvasc 10mg 5. Physical deconditioning - PT / OT recommend ECF placement Medically stable to d/c to ECF today Spent 35 minutes on his discharge summary due to his complex medical problems needed more education about f/u instructions.
--- NOTE | 2018-05-16 12:36 | Physician Discharge Referral ---
ExtendedCare Referral Info Provider in Charge after Transfer: PCP Institutional Level of Care: Skilled - Diagnosis (1) Chest pain Priority: Primary Status: Acute (2) History of coronary artery disease Priority: Secondary Status: Chronic (3) Hypertension Priority: Secondary Status: Chronic (4) Diabetes type 2, controlled Priority: Secondary Status: Chronic (5) History of CVA with residual deficit Priority: Secondary Status: Chronic (6) Acute exacerbation of CHF (congestive heart failure) Priority: Secondary Status: Acute - Transfer Medications Prescriptions: Clopidogrel [Plavix] 75 mg PO DAILY #30 tablet Furosemide [Lasix] 20 mg PO BIDDIURETIC #60 tablet Metoprolol [Lopressor] 25 mg PO BID #60 tablet Home Medications: Oxycodone HCl/Acetaminophen [Percocet 5-325 mg Tablet] 1 tab PO TID PRN [History] Atorvastatin [Lipitor] 40 mg PO HS 05/11/18 [History] Budesonide/Formoterol 160/4.5 [Symbicort 160/4.5] 2 puff IH BIDR 05/11/18 [ History] Cholecalciferol (Vitamin D3) [Vitamin D3] 2,000 unit PO DAILY 05/11/18 [History] Diclofen Sod/Kinesiology Tape [Diclo Gel 1%-Xrylix Sheet Kit] 1 appl TP QID [History] Famotidine [Pepcid] 20 mg PO BID 05/11/18 [History] Gabapentin [Neurontin] 600 mg PO TID 05/11/18 [History] Ibuprofen 800 mg PO TID 05/11/18 [History] Insulin ASPART [Novolog Flexpen] 14 unit SQ TIDWM 05/11/18 [History] Insulin Glargine [Lantus] 75 unit SQ HS 05/11/18 [History] Lisinopril [Zestril] 5 mg PO DAILY 05/11/18 [History] Sennosides/Docusate Sodium [Senna-S Tablet] 1 tab PO DAILY PRN 05/11/18 [History ] Tiotropium [Spiriva] 1 puff IH DAILY 05/11/18 [History] risperiDONE [Risperidone] 2 mg PO TID 05/11/18 [History] Aspirin Enteric Coated [Aspirin EC] 81 mg PO DAILY tablet. 05/16/18 [Rx] Clopidogrel [Plavix] 75 mg PO DAILY #30 tablet 05/16/18 [Rx] Furosemide [Lasix] 20 mg PO BIDDIURETIC #60 tablet 05/16/18 [Rx] Metoprolol [Lopressor] 25 mg PO BID #60 tablet 05/16/18 [Rx] Allergies/Adverse Reactions: 3 Allergy/AdvReac Type Severity Reaction Status Date / Time hydrocodone Allergy Rash Verified 05/08/18 05:24 morphine Allergy Rash Verified 05/08/18 05:24 fluoxetine [From Prozac] AdvReac See Verified 05/08/18 05:24 Comments Varenicline [From Chantix] AdvReac See Verified 05/08/18 05:24 Comments - Respiratory Orders Smoking Cessation: Smoking cessation has been advised. For more information, call the [employer] Quit Line at 1-424-PZIJ-NOW. - Ancillary Orders May use pressure relief devices daily prn, May go on JOHNATHAN w/family/respon green party w /meds at nurse discretion PRN, May consult with Dentist, Poultry Farm Laborer, Graphite Disk Assembler PRN - Mobility Orders Chair - Rehabiliation Orders Rehab Potential: Fair Rehab Orders: Sternal Precautions, ROM Exercises, Evaluation for Physical Therapy, Evaluation for Occupational Therapy, Evaluation for Speech Therapy - Treatments Skin tear care topically daily PRN per policy, May check for fecal impaction rectally daily PRN, Fleet enema rectally every other day PRN cleansing purposes - Diet Orders Cardiac CERTIFICATION: I certify that the transfer of the above named patient to an Extended Care Facility is necessary for the continuing treatment of the diagnosis listed. The above information is true and accurate reflection of patient's current condition. Confidential - Redisclosure prohibited without a patient's written consent.
== END 2018-05-16 14:09 | DRG 286 ==
LOC: 3BNU → SUATTDRO 05:06
PROVIDERS: ADMIT Internal Medicine; ATTEND Family Medicine

== ENCOUNTER 2019-11-26 10:22 | Inpatient (IN) ==
[2019-11-26] MEDS ORDERED: Ondansetron 4 MG/2 ML VIAL IVP PRN (13:27)
[2019-11-26] MEDS ORDERED: *HR* Promethazine 25 MG/ML VIAL IVP PRN (13:27)
[2019-11-26] MEDS ORDERED: MOM Conc 10 ML UD.LIQ PO PRN (13:27)
[2019-11-26] MEDS ORDERED: Mag Hydrox/Al Hydrox/Simeth 30 ML UDC PO PRN (13:27)
[2019-11-26] MEDS ORDERED: Naloxone 0.4 MG/ML INJ IVP PRN (13:27)
[2019-11-26] MEDS ORDERED: Ipratropium/Albuterol Neb 3 ML IH PRN (13:30)
[2019-11-26] MEDS ORDERED: Dextrose Gel 15 GM/37.5 ML TUBE PO PRN ×2 (13:33)
[2019-11-26] MEDS ORDERED: *HR* Dextrose 50 % in Water (Syg) 50 ML SYRINGE IVP PRN (13:33)
[2019-11-26] MEDS ORDERED: D5% in Water 1,000 ML IVC PRN (13:33)
[2019-11-26] MEDS ORDERED: Vancomycin 1,750 MG in 0.9 % Sodium Chloride 250 ML IVPB SCH (14:00)
[2019-11-26] MEDS: Piperacillin/Tazobactam 3.375 GM in 0.9 % Sodium Chloride Mini Bag 100 ML IVPB SCH (15:23)
[2019-11-26] MEDS: Ipratropium/Albuterol Neb 3 ML IH SCH ×2 (15:29→20:07)
[2019-11-26] MEDS: Insulin LISPRO 300 UNITS/3 ML VIAL SQ SCH (17:03)
[2019-11-26] MEDS: *HR* Heparin 5,000 UNIT/ML VIAL SQ SCH (17:03)
[2019-11-26] MEDS ORDERED: *HR* LORazepam 2 MG/ML VIAL IVP ONE (19:59)
[2019-11-26] MEDS: Furosemide 20 MG/2 ML VIAL IVP SCH (20:45)
[2019-11-26] MEDS ORDERED: Azithromycin 500 MG in 0.9 % Sodium Chloride 250 ML IVPB SCH (21:00)
[2019-11-27] MEDS: Ipratropium/Albuterol Neb 3 ML IH SCH ×7 (00:10→23:40)
[2019-11-27] MEDS ORDERED: *HR* LORazepam 2 MG/ML VIAL IVP ONE (01:48)
[2019-11-27] MEDS: Piperacillin/Tazobactam 3.375 GM in 0.9 % Sodium Chloride Mini Bag 100 ML IVPB SCH ×2 (02:11→08:59)
[2019-11-27] MEDS: Insulin LISPRO 300 UNITS/3 ML VIAL SQ SCH ×5 (02:14→21:17)
[2019-11-27 04:29] LABS: Basophils % 0.3 %; Eosinophils # 0.1 K/mcL (0.0-0.6); Eosinophils % 0.4 %; Hematocrit 41.4 % (37.5-50.1); Hemoglobin 13.8 g/dL (12.9-16.9); Immature Granulocytes % 1.2 % (0-4); Lymphocytes # 2.5 K/mcL (0.6-4.6); Lymphocytes % 20.9 %; Mean Corpuscular HGB Conc 33.3 g/dL (31.6-35.5); Mean Corpuscular Hemoglobin 27.6 pg (28.0-33.3); Mean Corpuscular Volume 82.8 fL (83.0-100.0); Mean Platelet Volume 9.5 fL (9.4-12.4); Monocytes # 0.7 K/mcL (0.0-1.3); Monocytes % 5.8 %; Neutrophils # 8.7 K/mcL (1.6-8.9); Platelet Count 164 K/mcL (140-400); Red Cell Distribution Width 14.6 % (11.5-14.5); Segmented Neutrophils % 71.4 %; White Blood Count 12.1 K/mcL (4.3-11.1)
[2019-11-27 04:43] LABS: BUN/Creatinine Ratio 15 (6-26); Blood Urea Nitrogen 10 mg/dL (6-20); Carbon Dioxide 24 mEq/L (23-29); Chloride 99 mEq/L (98-107); Glucose 276 mg/dL (70-105); Magnesium 1.4 mg/dL (1.6-2.6); Osmolality,Calculated 287 (280-300); Phosphorous 2.8 mg/dL (2.7-4.5); Potassium 4.2 mEq/L (3.5-5.1); Sodium 134 mEq/L (136-145); eGFR For African Americans > 60 (> 60); eGFR For Non-African Americans > 60 (> 60)
[2019-11-27] MEDS: *HR* Heparin 5,000 UNIT/ML VIAL SQ SCH ×2 (07:07→17:23)
[2019-11-27] MEDS ORDERED: Aminoglycoside Consult 1 EACH MC ONE (08:00)
[2019-11-27] MEDS: Furosemide 20 MG/2 ML VIAL IVP SCH ×2 (08:58→21:15)
[2019-11-27] MEDS: Aspirin Enteric Coated 81 MG Tablet PO SCH (08:59)
[2019-11-27] MEDS: predniSONE 20 MG TABLET PO SCH (08:59)
[2019-11-27] MEDS: *HR* LORazepam 0.5 MG TABLET PO PRN ×3 (09:25→23:00)
[2019-11-27 10:55] LABS: Adenovirus DETECTED (Not Detect); Bordetella Pertussis Not Detected (Not Detect); Chlamydophila pneumoniae Not Detected (Not Detect); Coronavirus 229E Not Detected (Not Detect); Coronavirus HKU1 Not Detected (Not Detect); Coronavirus NL63 Not Detected (Not Detect); Coronavirus OC43 Not Detected (Not Detect); Human Metapneumovirus Not Detected (Not Detect); Human Rhinovirus/Enterovirus Not Detected (Not Detect); Influenza A Subtype 2009 H1 Not Detected (Not Detect); Influenza B Not Detected (Not Detect); Mycoplasma pneumoniae Not Detected (Not Detect); Parainfluenza Virus 1 Not Detected (Not Detect); Parainfluenza Virus 2 Not Detected (Not Detect); Parainfluenza Virus 3 Not Detected (Not Detect); Parainfluenza Virus 4 Not Detected (Not Detect); Respiratory Syncytial Virus Not Detected (Not Detect)
[2019-11-27] MEDS: tiZANidine 4 MG TABLET PO PRN ×3 (12:13→23:29)
[2019-11-27] MEDS ORDERED: Famotidine 20 MG TABLET PO PRN (15:59)
[2019-11-27] MEDS ORDERED: Sennosides/Docusate Sodium TABLET PO PRN (15:59)
[2019-11-27] MEDS ORDERED: NON-FORMULARY MEDICATION 1 EACH EACH (Magnesium Hydroxide 30 ML) PO PRN (15:59)
[2019-11-27] MEDS: Budesonide/Formoterol 160/4.5 1 PUFF INH IH SCH (19:37)
[2019-11-27] MEDS ORDERED: Insulin DETEMIR 100 UNIT/ML X5UNITS SQ SCH (21:00)
[2019-11-27] MEDS ORDERED: Azithromycin 500 MG in 0.9 % Sodium Chloride 250 ML IVPB SCH (21:00)
[2019-11-27] MEDS: Gabapentin 100 MG CAPSULE PO SCH (21:15)
[2019-11-28] MEDS: Ipratropium/Albuterol Neb 3 ML IH SCH ×5 (03:41→20:12)
[2019-11-28] MEDS: tiZANidine 4 MG TABLET PO PRN (05:31)
[2019-11-28] MEDS: *HR* LORazepam 0.5 MG TABLET PO PRN ×3 (05:31→20:58)
[2019-11-28] MEDS: *HR* Heparin 5,000 UNIT/ML VIAL SQ SCH ×2 (05:31→16:56)
[2019-11-28 07:38] LABS: Basophils % 0.3 %; Eosinophils # 0.1 K/mcL (0.0-0.6); Eosinophils % 0.7 %; Hematocrit 38.6 % (37.5-50.1); Hemoglobin 12.5 g/dL (12.9-16.9); Immature Granulocytes % 0.8 % (0-4); Lymphocytes # 2.3 K/mcL (0.6-4.6); Lymphocytes % 26.1 %; Mean Corpuscular HGB Conc 32.4 g/dL (31.6-35.5); Mean Corpuscular Hemoglobin 27.3 pg (28.0-33.3); Mean Corpuscular Volume 84.3 fL (83.0-100.0); Mean Platelet Volume 9.7 fL (9.4-12.4); Monocytes # 0.6 K/mcL (0.0-1.3); Monocytes % 6.2 %; Neutrophils # 5.9 K/mcL (1.6-8.9); Platelet Count 193 K/mcL (140-400); Red Blood Count 4.58 M/mcL (4.19-5.50); Red Cell Distribution Width 14.5 % (11.5-14.5); Segmented Neutrophils % 65.9 %
[2019-11-28] MEDS: Budesonide/Formoterol 160/4.5 1 PUFF INH IH SCH ×2 (07:39→20:12)
[2019-11-28] MEDS ORDERED: Perflutren Lipid Microsphere 1.3 ML in 0.9 % Sodium Chloride 8.7 ML IVP ONE (07:47)
[2019-11-28] MEDS: Gabapentin 100 MG CAPSULE PO SCH ×3 (07:54→20:57)
[2019-11-28] MEDS: predniSONE 20 MG TABLET PO SCH (07:54)
[2019-11-28] MEDS: Aspirin Enteric Coated 81 MG Tablet PO SCH (07:54)
[2019-11-28] MEDS: Furosemide 20 MG/2 ML VIAL IVP SCH ×2 (07:56→16:57)
[2019-11-28] MEDS: Isosorbide MONOnitrate (24 HR) 60 MG TAB.ER.24H PO SCH (07:56)
[2019-11-28 07:57] LABS: BUN/Creatinine Ratio 29 (6-26); Blood Urea Nitrogen 18 mg/dL (6-20); Calcium 9.3 mg/dL (8.6-10.3); Carbon Dioxide 27 mEq/L (23-29); Chloride 98 mEq/L (98-107); Glucose 325 mg/dL (70-105); Osmolality,Calculated 294 (280-300); Potassium 3.4 mEq/L (3.5-5.1); Sodium 135 mEq/L (136-145); eGFR For African Americans > 60 (> 60); eGFR For Non-African Americans > 60 (> 60)
[2019-11-28] MEDS: Insulin LISPRO 300 UNITS/3 ML VIAL SQ SCH ×4 (07:57→20:55)
[2019-11-28] MEDS: Azithromycin 250 MG TABLET PO SCH (08:59)
[2019-11-28] MEDS ORDERED: Tiotropium 18 MCG inhalation IH SCH (10:00)
[2019-11-28] MEDS: Benzonatate 100 MG CAPSULE PO PRN ×2 (11:53→20:58)
[2019-11-28] MEDS ORDERED: Albuterol 2.5 MG/3 ML NEBULIZER IH PRN (14:27)
[2019-11-28] MEDS: Acetaminophen 325 MG TABLET PO PRN ×2 (14:36→20:59)
[2019-11-28] MEDS ORDERED: Insulin DETEMIR 100 UNIT/ML X5UNITS SQ SCH (21:00)
[2019-11-29] MEDS: Ipratropium/Albuterol Neb 3 ML IH SCH ×7 (00:13→23:17)
[2019-11-29] MEDS: *HR* LORazepam 0.5 MG TABLET PO PRN ×3 (06:41→22:38)
[2019-11-29] MEDS: *HR* Heparin 5,000 UNIT/ML VIAL SQ SCH ×2 (06:42→16:37)
[2019-11-29 06:52] LABS: BUN/Creatinine Ratio 37 (6-26); Blood Urea Nitrogen 26 mg/dL (6-20); Calcium 9.4 mg/dL (8.6-10.3); Carbon Dioxide 24 mEq/L (23-29); Chloride 101 mEq/L (98-107); Glucose 335 mg/dL (70-105); Osmolality,Calculated 302 (280-300); Potassium 4.7 mEq/L (3.5-5.1); Sodium 137 mEq/L (136-145); eGFR For African Americans > 60 (> 60); eGFR For Non-African Americans > 60 (> 60)
[2019-11-29] MEDS: Budesonide/Formoterol 160/4.5 1 PUFF INH IH SCH ×2 (07:27→20:17)
[2019-11-29] MEDS: Gabapentin 100 MG CAPSULE PO SCH ×3 (07:49→21:44)
[2019-11-29] MEDS: Isosorbide MONOnitrate (24 HR) 60 MG TAB.ER.24H PO SCH (07:49)
[2019-11-29] MEDS: Azithromycin 250 MG TABLET PO SCH (07:49)
[2019-11-29] MEDS: predniSONE 20 MG TABLET PO SCH (07:49)
[2019-11-29] MEDS: Aspirin Enteric Coated 81 MG Tablet PO SCH (07:49)
[2019-11-29] MEDS: Insulin LISPRO 300 UNITS/3 ML VIAL SQ SCH ×4 (07:50→18:26)
[2019-11-29] MEDS: Furosemide 20 MG/2 ML VIAL IVP SCH ×2 (07:50→16:37)
[2019-11-29] MEDS: Sennosides/Docusate Sodium TABLET PO SCH (10:46)
[2019-11-29] MEDS: Benzonatate 100 MG CAPSULE PO PRN (16:37)
[2019-11-29] MEDS: Acetaminophen 325 MG TABLET PO PRN (16:45)
[2019-11-29] MEDS ORDERED: D5% in Water 1,000 ML IVC PRN (18:05)
[2019-11-29] MEDS ORDERED: *HR* Dextrose 50 % in Water (Syg) 50 ML SYRINGE IVP PRN (18:05)
[2019-11-29] MEDS ORDERED: Dextrose Gel 15 GM/37.5 ML TUBE PO PRN ×2 (18:05)
[2019-11-29] MEDS ORDERED: Insulin LISPRO 300 UNITS/3 ML VIAL SQ SCH (21:44)
[2019-11-30] MEDS ORDERED: *HR* Labetalol 20 MG/4 ML SYRINGE IVP ONE (03:22)
[2019-11-30] MEDS: Ipratropium/Albuterol Neb 3 ML IH SCH ×6 (03:39→23:48)
[2019-11-30 04:41] LABS: Basophils % 0.5 %; Eosinophils % 0.1 %; Hematocrit 38.2 % (37.5-50.1); Hemoglobin 12.3 g/dL (12.9-16.9); Immature Granulocytes % 1.2 % (0-4); Lymphocytes # 2.7 K/mcL (0.6-4.6); Lymphocytes % 30.9 %; Mean Corpuscular HGB Conc 32.2 g/dL (31.6-35.5); Mean Corpuscular Volume 86.8 fL (83.0-100.0); Monocytes # 0.6 K/mcL (0.0-1.3); Monocytes % 6.5 %; Neutrophils # 5.2 K/mcL (1.6-8.9); Platelet Count 198 K/mcL (140-400); Red Cell Distribution Width 14.1 % (11.5-14.5); Segmented Neutrophils % 60.8 %; White Blood Count 8.6 K/mcL (4.3-11.1)
[2019-11-30 05:07] LABS: BUN/Creatinine Ratio 34 (6-26); Blood Urea Nitrogen 23 mg/dL (6-20); Calcium 9.4 mg/dL (8.6-10.3); Carbon Dioxide 27 mEq/L (23-29); Chloride 99 mEq/L (98-107); Glucose 310 mg/dL (70-105); Magnesium 1.7 mg/dL (1.6-2.6); Osmolality,Calculated 297 (280-300); Potassium 3.5 mEq/L (3.5-5.1); Sodium 136 mEq/L (136-145); eGFR For African Americans > 60 (> 60); eGFR For Non-African Americans > 60 (> 60)
[2019-11-30] MEDS: *HR* Heparin 5,000 UNIT/ML VIAL SQ SCH ×2 (06:09→17:29)
[2019-11-30] MEDS: Budesonide/Formoterol 160/4.5 1 PUFF INH IH SCH ×2 (07:30→20:07)
[2019-11-30] MEDS: predniSONE 20 MG TABLET PO SCH (08:20)
[2019-11-30] MEDS: Isosorbide MONOnitrate (24 HR) 60 MG TAB.ER.24H PO SCH (08:21)
[2019-11-30] MEDS: Sennosides/Docusate Sodium TABLET PO SCH (08:21)
[2019-11-30] MEDS: Aspirin Enteric Coated 81 MG Tablet PO SCH (08:21)
[2019-11-30] MEDS: Gabapentin 100 MG CAPSULE PO SCH ×3 (08:21→20:08)
[2019-11-30] MEDS: Furosemide 40 MG TABLET PO SCH (08:22)
[2019-11-30] MEDS: Insulin LISPRO 300 UNITS/3 ML VIAL SQ SCH ×4 (08:25→20:09)
[2019-11-30] MEDS ORDERED: Insulin DETEMIR 100 UNIT/ML X5UNITS SQ SCH (09:00)
[2019-11-30] MEDS: *HR* LORazepam 0.5 MG TABLET PO PRN ×2 (12:07→20:08)
[2019-11-30] MEDS ORDERED: Insulin DETEMIR 100 UNIT/ML X5UNITS SQ ONE (18:20)
[2019-11-30] MEDS: tiZANidine 4 MG TABLET PO PRN (20:08)
[2019-12-01] MEDS: Saline Nasal Spray 44 ML BOTTLE NS PRN ×2 (01:12→05:58)
[2019-12-01] MEDS ORDERED: Insulin Human Regular 10 UNIT in 0.9 % Sodium Chloride 10 ML IV ONE (01:52)
[2019-12-01] MEDS: Ipratropium/Albuterol Neb 3 ML IH SCH ×5 (03:22→19:35)
[2019-12-01 04:50] LABS: Basophils # 0.1 K/mcL (0.0-0.2); Basophils % 0.6 %; Eosinophils % 0.2 %; Immature Granulocytes % 2.7 % (0-4); Lymphocytes # 3.1 K/mcL (0.6-4.6); Lymphocytes % 30.2 %; Mean Corpuscular HGB Conc 32.5 g/dL (31.6-35.5); Mean Corpuscular Volume 86.2 fL (83.0-100.0); Monocytes # 0.7 K/mcL (0.0-1.3); Platelet Count 216 K/mcL (140-400); Red Blood Count 4.64 M/mcL (4.19-5.50); Red Cell Distribution Width 14.1 % (11.5-14.5); Segmented Neutrophils % 59.3 %; White Blood Count 10.2 K/mcL (4.3-11.1)
[2019-12-01 04:54] LABS: BUN/Creatinine Ratio 32 (6-26); Blood Urea Nitrogen 21 mg/dL (6-20); Calcium 9.7 mg/dL (8.6-10.3); Carbon Dioxide 28 mEq/L (23-29); Chloride 99 mEq/L (98-107); Glucose 190 mg/dL (70-105); Magnesium 1.8 mg/dL (1.6-2.6); Osmolality,Calculated 292 (280-300); Potassium 3.5 mEq/L (3.5-5.1); Sodium 137 mEq/L (136-145); eGFR For African Americans > 60 (> 60); eGFR For Non-African Americans > 60 (> 60)
[2019-12-01] MEDS: *HR* LORazepam 0.5 MG TABLET PO PRN ×3 (05:21→22:27)
[2019-12-01] MEDS: tiZANidine 4 MG TABLET PO PRN (05:21)
[2019-12-01] MEDS: *HR* Heparin 5,000 UNIT/ML VIAL SQ SCH ×2 (05:21→17:28)
[2019-12-01] MEDS: Benzonatate 100 MG CAPSULE PO PRN ×2 (05:29→14:37)
[2019-12-01] MEDS: Budesonide/Formoterol 160/4.5 1 PUFF INH IH SCH ×2 (07:31→19:35)
[2019-12-01] MEDS ORDERED: Insulin DETEMIR 100 UNIT/ML X5UNITS SQ SCH ×2 (09:00→21:00)
[2019-12-01] MEDS: Insulin LISPRO 300 UNITS/3 ML VIAL SQ SCH ×5 (09:02→21:07)
[2019-12-01] MEDS: Furosemide 40 MG TABLET PO SCH (09:04)
[2019-12-01] MEDS: Sennosides/Docusate Sodium TABLET PO SCH (09:05)
[2019-12-01] MEDS: Isosorbide MONOnitrate (24 HR) 60 MG TAB.ER.24H PO SCH (09:05)
[2019-12-01] MEDS: predniSONE 20 MG TABLET PO SCH (09:05)
[2019-12-01] MEDS: Gabapentin 100 MG CAPSULE PO SCH ×3 (09:06→21:06)
[2019-12-01] MEDS: Aspirin Enteric Coated 81 MG Tablet PO SCH (09:06)
[2019-12-01 10:42] LABS: Estimated Average Glucose 260 mg/dl
[2019-12-01] MEDS ORDERED: *HR* Dextrose 50 % in Water (Syg) 50 ML SYRINGE IVP PRN (17:44)
[2019-12-01] MEDS ORDERED: D5% in Water 1,000 ML IVC PRN (17:44)
[2019-12-01] MEDS ORDERED: Dextrose Gel 15 GM/37.5 ML TUBE PO PRN ×2 (17:44)
[2019-12-01] MEDS: Insulin DETEMIR 100 UNIT/ML X5UNITS SQ SCH (21:07)
[2019-12-02] MEDS: Ipratropium/Albuterol Neb 3 ML IH SCH ×5 (00:17→15:28)
[2019-12-02] MEDS: *HR* Heparin 5,000 UNIT/ML VIAL SQ SCH (05:10)
[2019-12-02 07:09] LABS: Hematocrit 41.2 % (37.5-50.1); Hemoglobin 13.4 g/dL (12.9-16.9); Immature Granulocytes % 2.5 % (0-4); Lymphocytes % 30.9 %; Mean Corpuscular HGB Conc 32.5 g/dL (31.6-35.5); Mean Corpuscular Hemoglobin 27.5 pg (28.0-33.3); Mean Corpuscular Volume 84.4 fL (83.0-100.0); Mean Platelet Volume 9.3 fL (9.4-12.4); Monocytes % 6.4 %; Platelet Count 222 K/mcL (140-400); Red Blood Count 4.88 M/mcL (4.19-5.50); Red Cell Distribution Width 14.2 % (11.5-14.5); Segmented Neutrophils % 59.2 %; White Blood Count 10.4 K/mcL (4.3-11.1)
[2019-12-02 07:10] LABS: Basophils # 0.1 K/mcL (0.0-0.2); Basophils % 0.6 %; Eosinophils % 0.4 %; Lymphocytes # 3.2 K/mcL (0.6-4.6); Monocytes # 0.7 K/mcL (0.0-1.3); Neutrophils # 6.2 K/mcL (1.6-8.9); Nucleated Red Blood Cells 0.2 /100 WBC (0)
[2019-12-02] MEDS: Budesonide/Formoterol 160/4.5 1 PUFF INH IH SCH (07:23)
[2019-12-02 07:27] LABS: BUN/Creatinine Ratio 30 (6-26); Blood Urea Nitrogen 18 mg/dL (6-20); Calcium 9.3 mg/dL (8.6-10.3); Carbon Dioxide 28 mEq/L (23-29); Chloride 99 mEq/L (98-107); Glucose 200 mg/dL (70-105); Magnesium 1.7 mg/dL (1.6-2.6); Osmolality,Calculated 294 (280-300); Potassium 3.5 mEq/L (3.5-5.1); Sodium 138 mEq/L (136-145); eGFR For African Americans > 60 (> 60); eGFR For Non-African Americans > 60 (> 60)
[2019-12-02] MEDS: Insulin LISPRO 300 UNITS/3 ML VIAL SQ SCH ×6 (08:07→17:16)
[2019-12-02] MEDS: Insulin DETEMIR 100 UNIT/ML X5UNITS SQ SCH (08:07)
[2019-12-02] MEDS: Gabapentin 100 MG CAPSULE PO SCH ×2 (08:08→15:02)
[2019-12-02] MEDS: Isosorbide MONOnitrate (24 HR) 60 MG TAB.ER.24H PO SCH (08:08)
[2019-12-02] MEDS: *HR* LORazepam 0.5 MG TABLET PO PRN ×2 (08:08→15:03)
[2019-12-02] MEDS: Aspirin Enteric Coated 81 MG Tablet PO SCH (08:08)
[2019-12-02] MEDS: tiZANidine 4 MG TABLET PO PRN ×2 (08:08→15:03)
[2019-12-02] MEDS: predniSONE 20 MG TABLET PO SCH (08:08)
[2019-12-02] MEDS: Sennosides/Docusate Sodium TABLET PO SCH (08:09)
[2019-12-02] MEDS: Furosemide 40 MG TABLET PO SCH (08:09)
[2019-12-02] MEDS ORDERED: Insulin DETEMIR 100 UNIT/ML X5UNITS SQ SCH (09:00)
[2019-12-02] MEDS: Benzonatate 100 MG CAPSULE PO PRN (15:03)
[2019-12-02 15:19] VITALS: BP 118/74
[2019-12-02] MEDS ORDERED: FLU Vac QV 19-20 (6Month+)/PF 0.5 ML SYRINGE IM ONE (17:53)
== END 2019-12-02 18:14 | disposition home or self-care (01) | DRG 291 ==
LOC: 2ANU → SUATTDRO 11:43 → 2ANU 21:04 → SUATTDRO 11-27 14:49
PROVIDERS: ADMIT Internal Medicine; ATTEND Pharmacist

== ENCOUNTER 2020-01-19 14:44 | Inpatient (IN) ==
[2020-01-19] MEDS ORDERED: 0.9 % Sodium Chloride 1,000 ML IVC ONE (15:04)
[2020-01-19 15:14] LABS: Basophils % 0.4 %; Eosinophils % 0.4 %; Hematocrit 39.1 % (37.5-50.1); Hemoglobin 12.5 g/dL (12.9-16.9); Immature Granulocytes % 1.1 % (0-4); Lymphocytes # 2.1 K/mcL (0.6-4.6); Lymphocytes % 20.5 %; Mean Corpuscular Hemoglobin 27.8 pg (28.0-33.3); Mean Corpuscular Volume 86.9 fL (83.0-100.0); Mean Platelet Volume 9.3 fL (9.4-12.4); Monocytes # 0.4 K/mcL (0.0-1.3); Monocytes % 3.9 %; Neutrophils # 7.5 K/mcL (1.6-8.9); Platelet Count 243 K/mcL (140-400); Red Cell Distribution Width 14.5 % (11.5-14.5); Segmented Neutrophils % 73.7 %; White Blood Count 10.1 K/mcL (4.3-11.1)
[2020-01-19] MEDS ORDERED: Clindamycin 600 MG/50 ML 600 MG/50 ML IV.SOLN IVPB STA (15:29)
[2020-01-19] MEDS ORDERED: Vancomycin 1,750 MG in 0.9 % Sodium Chloride 250 ML IVPB ONE (15:29)
[2020-01-19 15:47] LABS: BUN/Creatinine Ratio 21 (6-26); Blood Urea Nitrogen 14 mg/dL (6-20); C-Reactive Protein 93 mg/L (Less than 10); Calcium 9.1 mg/dL (8.6-10.3); Carbon Dioxide 25 mEq/L (23-29); Chloride 98 mEq/L (98-107); Glucose 368 mg/dL (70-105); Osmolality,Calculated 289 (280-300); Potassium 4.3 mEq/L (3.5-5.1); Sodium 132 mEq/L (136-145); eGFR For African Americans > 60 (> 60); eGFR For Non-African Americans > 60 (> 60)
[2020-01-19] MEDS ORDERED: Naloxone 0.4 MG/ML INJ IVP PRN (16:26)
[2020-01-19] MEDS ORDERED: Dextrose Gel 15 GM/37.5 ML TUBE PO PRN ×2 (16:54)
[2020-01-19] MEDS ORDERED: *HR* Dextrose 50 % in Water (Syg) 50 ML SYRINGE IVP PRN (16:54)
[2020-01-19] MEDS ORDERED: D5% in Water 1,000 ML IVC PRN (16:54)
[2020-01-19 17:43] LABS: HSV 1 DNA Not Detected (Not Detect); HSV 2 DNA Not Detected (Not Detect)
[2020-01-19] MEDS ORDERED: Vancomycin 0 MG in 0.9 % Sodium Chloride 250 ML IVPB SCH (18:00)
[2020-01-19] MEDS: Piperacillin/Tazobactam 3.375 GM in 0.9 % Sodium Chloride Mini Bag 100 ML IVPB SCH (18:42)
[2020-01-19] MEDS: *HR* Heparin 5,000 UNIT/ML VIAL SQ SCH (18:42)
[2020-01-19] MEDS: Insulin LISPRO 300 UNITS/3 ML VIAL SQ SCH ×2 (18:42→22:43)
[2020-01-19] MEDS: *HR* OxyCODONE/APAP 5/325 TABLET PO PRN (18:43)
[2020-01-19] MEDS: Gabapentin 100 MG CAPSULE PO SCH (19:48)
[2020-01-19] MEDS: *HR* LORazepam 0.5 MG TABLET PO PRN (22:43)
[2020-01-20 01:23] LABS: White Blood Count 8.5 K/mcL (4.3-11.1)
[2020-01-20 01:24] LABS: Basophils % 0.4 %; Eosinophils # 0.1 K/mcL (0.0-0.6); Eosinophils % 0.6 %; Hematocrit 40.1 % (37.5-50.1); Hemoglobin 12.7 g/dL (12.9-16.9); Immature Granulocytes % 1.2 % (0-4); Lymphocytes # 1.9 K/mcL (0.6-4.6); Lymphocytes % 21.8 %; Mean Corpuscular HGB Conc 31.7 g/dL (31.6-35.5); Mean Corpuscular Hemoglobin 27.4 pg (28.0-33.3); Mean Corpuscular Volume 86.6 fL (83.0-100.0); Mean Platelet Volume 9.3 fL (9.4-12.4); Monocytes # 0.4 K/mcL (0.0-1.3); Monocytes % 4.9 %; Neutrophils # 6.1 K/mcL (1.6-8.9); Platelet Count 213 K/mcL (140-400); Red Blood Count 4.63 M/mcL (4.19-5.50); Red Cell Distribution Width 14.6 % (11.5-14.5); Segmented Neutrophils % 71.1 %
[2020-01-20 01:35] LABS: BUN/Creatinine Ratio 16 (6-26); Blood Urea Nitrogen 13 mg/dL (6-20); Calcium 8.8 mg/dL (8.6-10.3); Carbon Dioxide 25 mEq/L (23-29); Chloride 102 mEq/L (98-107); Glucose 271 mg/dL (70-105); Osmolality,Calculated 290 (280-300); Potassium 3.8 mEq/L (3.5-5.1); Sodium 135 mEq/L (136-145); eGFR For African Americans > 60 (> 60); eGFR For Non-African Americans > 60 (> 60)
[2020-01-20] MEDS: Piperacillin/Tazobactam 3.375 GM in 0.9 % Sodium Chloride Mini Bag 100 ML IVPB SCH ×3 (02:24→18:17)
[2020-01-20] MEDS: *HR* OxyCODONE/APAP 5/325 TABLET PO PRN ×4 (03:37→23:14)
[2020-01-20] MEDS: *HR* Heparin 5,000 UNIT/ML VIAL SQ SCH ×2 (05:27→17:04)
[2020-01-20] MEDS: Insulin LISPRO 300 UNITS/3 ML VIAL SQ SCH ×4 (08:20→23:15)
[2020-01-20] MEDS: Aspirin Enteric Coated 81 MG Tablet PO SCH (08:21)
[2020-01-20] MEDS: Gabapentin 100 MG CAPSULE PO SCH ×3 (08:21→23:09)
[2020-01-20] MEDS ORDERED: tiZANidine 4 MG TABLET PO PRN (10:53)
[2020-01-20] MEDS ORDERED: Nitroglycerin 0.4 MG TAB.SUBL SL PRN (10:53)
[2020-01-20] MEDS: Ipratropium/Albuterol Neb 3 ML IH SCH ×4 (11:01→23:38)
[2020-01-20] MEDS: *HR* LORazepam 0.5 MG TABLET PO PRN (12:25)
[2020-01-20] MEDS: Insulin DETEMIR 100 UNIT/ML X5UNITS SQ SCH ×2 (12:49→23:10)
[2020-01-20 13:25] LABS: Adenovirus Not Detected (Not Detect); Coronavirus 229E Not Detected (Not Detect); Coronavirus HKU1 Not Detected (Not Detect); Coronavirus NL63 Not Detected (Not Detect); Coronavirus OC43 Not Detected (Not Detect); Human Metapneumovirus Not Detected (Not Detect); Human Rhinovirus/Enterovirus Not Detected (Not Detect)
[2020-01-20 13:26] LABS: Bordetella Pertussis Not Detected (Not Detect); Chlamydophila pneumoniae Not Detected (Not Detect); Influenza A Subtype 2009 H1 Not Detected (Not Detect); Influenza B Not Detected (Not Detect); Mycoplasma pneumoniae Not Detected (Not Detect); Parainfluenza Virus 1 Not Detected (Not Detect); Parainfluenza Virus 2 Not Detected (Not Detect); Parainfluenza Virus 3 Not Detected (Not Detect); Parainfluenza Virus 4 Not Detected (Not Detect); Respiratory Syncytial Virus Not Detected (Not Detect)
[2020-01-20] MEDS: Budesonide/Formoterol 160/4.5 1 PUFF INH IH SCH (19:59)
[2020-01-20] MEDS: Famotidine 20 MG TABLET PO SCH (23:09)
[2020-01-20] MEDS: traZODone 50 MG TABLET PO SCH (23:30)
[2020-01-20] MEDS: Sennosides/Docusate Sodium TABLET PO SCH (23:35)
[2020-01-21] MEDS: *HR* LORazepam 0.5 MG TABLET PO PRN ×2 (00:17→14:21)
[2020-01-21] MEDS: Piperacillin/Tazobactam 3.375 GM in 0.9 % Sodium Chloride Mini Bag 100 ML IVPB SCH ×3 (01:28→18:53)
[2020-01-21] MEDS: Ipratropium/Albuterol Neb 3 ML IH SCH ×6 (03:29→23:50)
[2020-01-21 03:52] LABS: Basophils # 0.1 K/mcL (0.0-0.2); Basophils % 0.7 %; Eosinophils # 0.2 K/mcL (0.0-0.6); Eosinophils % 2.1 %; Hematocrit 37.9 % (37.5-50.1); Hemoglobin 12.1 g/dL (12.9-16.9); Immature Granulocytes % 1.4 % (0-4); Lymphocytes # 2.1 K/mcL (0.6-4.6); Lymphocytes % 28.4 %; Mean Corpuscular HGB Conc 31.9 g/dL (31.6-35.5); Mean Corpuscular Volume 87.7 fL (83.0-100.0); Mean Platelet Volume 9.1 fL (9.4-12.4); Monocytes # 0.4 K/mcL (0.0-1.3); Monocytes % 5.7 %; Neutrophils # 4.5 K/mcL (1.6-8.9); Platelet Count 212 K/mcL (140-400); Red Blood Count 4.32 M/mcL (4.19-5.50); Red Cell Distribution Width 14.5 % (11.5-14.5); Segmented Neutrophils % 61.7 %; White Blood Count 7.2 K/mcL (4.3-11.1)
[2020-01-21 04:08] LABS: BUN/Creatinine Ratio 16 (6-26); Blood Urea Nitrogen 11 mg/dL (6-20); Calcium 8.7 mg/dL (8.6-10.3); Carbon Dioxide 23 mEq/L (23-29); Chloride 101 mEq/L (98-107); Glucose 347 mg/dL (70-105); Osmolality,Calculated 285 (280-300); Potassium 3.8 mEq/L (3.5-5.1); Sodium 131 mEq/L (136-145); eGFR For African Americans > 60 (> 60); eGFR For Non-African Americans > 60 (> 60)
[2020-01-21] MEDS: *HR* Heparin 5,000 UNIT/ML VIAL SQ SCH ×2 (06:17→17:14)
[2020-01-21] MEDS: *HR* OxyCODONE/APAP 5/325 TABLET PO PRN ×4 (06:18→23:48)
[2020-01-21] MEDS: Budesonide/Formoterol 160/4.5 1 PUFF INH IH SCH ×2 (07:32→20:00)
[2020-01-21] MEDS: Famotidine 20 MG TABLET PO SCH ×2 (08:41→20:50)
[2020-01-21] MEDS: Cholecalciferol (D-3) 1,000 UNIT (25MCG) TABLET PO SCH (08:41)
[2020-01-21] MEDS: Aspirin Enteric Coated 81 MG Tablet PO SCH (08:41)
[2020-01-21] MEDS: Isosorbide MONOnitrate (24 HR) 60 MG TAB.ER.24H PO SCH (08:42)
[2020-01-21] MEDS: Gabapentin 100 MG CAPSULE PO SCH ×3 (08:42→20:51)
[2020-01-21] MEDS: Furosemide 40 MG TABLET PO SCH (08:42)
[2020-01-21] MEDS: Insulin DETEMIR 100 UNIT/ML X5UNITS SQ SCH ×2 (08:44→20:59)
[2020-01-21] MEDS: Insulin LISPRO 300 UNITS/3 ML VIAL SQ SCH ×4 (08:45→20:59)
[2020-01-21] MEDS ORDERED: Insulin DETEMIR 100 UNIT/ML X5UNITS SQ ONE (10:23)
[2020-01-21] MEDS: traZODone 50 MG TABLET PO SCH (20:51)
[2020-01-21] MEDS: Sennosides/Docusate Sodium TABLET PO SCH (22:17)
[2020-01-22] MEDS: Piperacillin/Tazobactam 3.375 GM in 0.9 % Sodium Chloride Mini Bag 100 ML IVPB SCH ×2 (03:05→09:21)
[2020-01-22] MEDS: Ipratropium/Albuterol Neb 3 ML IH SCH ×5 (03:35→20:56)
[2020-01-22 05:25] LABS: Basophils % 0.7 %; Eosinophils # 0.2 K/mcL (0.0-0.6); Eosinophils % 2.6 %; Hematocrit 36.2 % (37.5-50.1); Hemoglobin 11.5 g/dL (12.9-16.9); Immature Granulocytes % 1.2 % (0-4); Lymphocytes # 1.9 K/mcL (0.6-4.6); Lymphocytes % 30.4 %; Mean Corpuscular HGB Conc 31.8 g/dL (31.6-35.5); Mean Corpuscular Hemoglobin 27.8 pg (28.0-33.3); Mean Corpuscular Volume 87.7 fL (83.0-100.0); Mean Platelet Volume 9.1 fL (9.4-12.4); Monocytes # 0.3 K/mcL (0.0-1.3); Monocytes % 5.6 %; Neutrophils # 3.6 K/mcL (1.6-8.9); Platelet Count 231 K/mcL (140-400); Red Blood Count 4.13 M/mcL (4.19-5.50); Red Cell Distribution Width 14.5 % (11.5-14.5); Segmented Neutrophils % 59.5 %; White Blood Count 6.1 K/mcL (4.3-11.1)
[2020-01-22] MEDS: *HR* OxyCODONE/APAP 5/325 TABLET PO PRN ×4 (05:57→22:30)
[2020-01-22] MEDS: *HR* Heparin 5,000 UNIT/ML VIAL SQ SCH ×2 (05:58→18:20)
[2020-01-22 06:10] LABS: BUN/Creatinine Ratio 19 (6-26); Blood Urea Nitrogen 11 mg/dL (6-20); Calcium 8.6 mg/dL (8.6-10.3); Carbon Dioxide 25 mEq/L (23-29); Chloride 104 mEq/L (98-107); Glucose 246 mg/dL (70-105); Osmolality,Calculated 290 (280-300); Potassium 3.7 mEq/L (3.5-5.1); Sodium 136 mEq/L (136-145); eGFR For African Americans > 60 (> 60); eGFR For Non-African Americans > 60 (> 60)
[2020-01-22] MEDS: Budesonide/Formoterol 160/4.5 1 PUFF INH IH SCH ×2 (07:16→20:56)
[2020-01-22] MEDS: Insulin LISPRO 300 UNITS/3 ML VIAL SQ SCH ×4 (09:19→20:40)
[2020-01-22] MEDS: Furosemide 40 MG TABLET PO SCH (09:20)
[2020-01-22] MEDS: Insulin DETEMIR 100 UNIT/ML X5UNITS SQ SCH (09:20)
[2020-01-22] MEDS: Famotidine 20 MG TABLET PO SCH ×2 (09:21→20:39)
[2020-01-22] MEDS: Aspirin Enteric Coated 81 MG Tablet PO SCH (09:21)
[2020-01-22] MEDS: Gabapentin 100 MG CAPSULE PO SCH ×3 (09:21→20:39)
[2020-01-22] MEDS: Cholecalciferol (D-3) 1,000 UNIT (25MCG) TABLET PO SCH (09:21)
[2020-01-22] MEDS: Isosorbide MONOnitrate (24 HR) 60 MG TAB.ER.24H PO SCH (09:23)
[2020-01-22] MEDS: *HR* LORazepam 0.5 MG TABLET PO PRN ×2 (13:48→20:39)
[2020-01-22] MEDS: traZODone 50 MG TABLET PO SCH (20:39)
[2020-01-22] MEDS: Sennosides/Docusate Sodium TABLET PO SCH (20:39)
[2020-01-22] MEDS ORDERED: Insulin DETEMIR 100 UNIT/ML X5UNITS SQ SCH (21:00)
[2020-01-23] MEDS: Ipratropium/Albuterol Neb 3 ML IH SCH ×4 (00:47→11:48)
[2020-01-23 02:07] LABS: Basophils % 0.6 %; Eosinophils # 0.2 K/mcL (0.0-0.6); Eosinophils % 2.4 %; Hemoglobin 10.9 g/dL (12.9-16.9); Immature Granulocytes % 1.4 % (0-4); Lymphocytes # 2.2 K/mcL (0.6-4.6); Lymphocytes % 30.4 %; Mean Corpuscular HGB Conc 32.1 g/dL (31.6-35.5); Mean Corpuscular Hemoglobin 28.1 pg (28.0-33.3); Mean Corpuscular Volume 87.6 fL (83.0-100.0); Mean Platelet Volume 9.3 fL (9.4-12.4); Monocytes # 0.4 K/mcL (0.0-1.3); Monocytes % 5.4 %; Neutrophils # 4.3 K/mcL (1.6-8.9); Platelet Count 216 K/mcL (140-400); Red Blood Count 3.88 M/mcL (4.19-5.50); Red Cell Distribution Width 14.4 % (11.5-14.5); Segmented Neutrophils % 59.8 %; White Blood Count 7.2 K/mcL (4.3-11.1)
[2020-01-23 02:21] LABS: BUN/Creatinine Ratio 18 (6-26); Blood Urea Nitrogen 12 mg/dL (6-20); Calcium 8.7 mg/dL (8.6-10.3); Carbon Dioxide 27 mEq/L (23-29); Chloride 102 mEq/L (98-107); Glucose 297 mg/dL (70-105); Osmolality,Calculated 291 (280-300); Potassium 4.2 mEq/L (3.5-5.1); Sodium 135 mEq/L (136-145); eGFR For African Americans > 60 (> 60); eGFR For Non-African Americans > 60 (> 60)
[2020-01-23] MEDS: *HR* OxyCODONE/APAP 5/325 TABLET PO PRN ×2 (02:46→10:23)
[2020-01-23] MEDS: *HR* Heparin 5,000 UNIT/ML VIAL SQ SCH (05:04)
[2020-01-23] MEDS: *HR* LORazepam 0.5 MG TABLET PO PRN ×2 (05:04→12:46)
[2020-01-23] MEDS: Budesonide/Formoterol 160/4.5 1 PUFF INH IH SCH (07:55)
[2020-01-23] MEDS ORDERED: Insulin DETEMIR 100 UNIT/ML X5UNITS SQ SCH (09:00)
[2020-01-23] MEDS: Famotidine 20 MG TABLET PO SCH (10:23)
[2020-01-23] MEDS: Furosemide 40 MG TABLET PO SCH (10:23)
[2020-01-23] MEDS: Isosorbide MONOnitrate (24 HR) 60 MG TAB.ER.24H PO SCH (10:24)
[2020-01-23] MEDS: Gabapentin 100 MG CAPSULE PO SCH (10:24)
[2020-01-23] MEDS: Cholecalciferol (D-3) 1,000 UNIT (25MCG) TABLET PO SCH (10:24)
[2020-01-23] MEDS: Aspirin Enteric Coated 81 MG Tablet PO SCH (10:24)
[2020-01-23] MEDS: Insulin LISPRO 300 UNITS/3 ML VIAL SQ SCH ×2 (10:26→12:46)
[2020-01-23 10:55] VITALS: BP 160/93
[2020-01-23] MEDS ORDERED: Aminoglycoside Consult 1 EACH MC ONE (14:19)
== END 2020-01-23 14:20 | DRG 603 ==
LOC: EMEROOARM 14:44 → 3NENU 14:44 → SUATTDRO 16:24 → 3NENU 17:03
PROVIDERS: ADMIT Internal Medicine; ATTEND Internal Medicine

== ENCOUNTER 2020-10-28 21:14 | Inpatient (IN) ==
[2020-10-29] MEDS ORDERED: Ondansetron ODT 4 MG TAB.RAPDIS SL PRN (06:29)
[2020-10-29] MEDS ORDERED: Naloxone 0.4 MG/ML INJ IVP PRN (06:29)
[2020-10-29 07:19] LABS: Basophils % 0.2 %; Eosinophils # 0.1 K/mcL (0.0-0.6); Eosinophils % 0.5 %; Hematocrit 40.1 % (37.5-50.1); Hemoglobin 12.2 g/dL (12.9-16.9); Immature Granulocytes % 1.2 % (0-4); Lymphocytes # 2.2 K/mcL (0.6-4.6); Lymphocytes % 13.4 %; Mean Corpuscular HGB Conc 30.4 g/dL (31.6-35.5); Mean Corpuscular Volume 88.7 fL (83.0-100.0); Mean Platelet Volume 9.2 fL (9.4-12.4); Monocytes % 6.2 %; Platelet Count 179 K/mcL (140-400); Red Blood Count 4.52 M/mcL (4.19-5.50); Red Cell Distribution Width 14.3 % (11.5-14.5); Segmented Neutrophils % 78.5 %; White Blood Count 16.6 K/mcL (4.3-11.1)
[2020-10-29 07:36] LABS: Alanine Aminotransferase 16 Units/L (7-52); Albumin 3.8 g/dL (3.5-5.7); Albumin/Globulin Ratio 1.1 (1.1-2.2); Alkaline Phosphatase 106 Units/L (34-104); Aspartate Amino Transferase 11 Units/L (13-39); BUN/Creatinine Ratio 16 (6-26); Bilirubin,Total 0.7 mg/dL (0.3-1.0); Blood Urea Nitrogen 10 mg/dL (6-20); Calcium 8.8 mg/dL (8.6-10.3); Carbon Dioxide 22 mEq/L (23-29); Chloride 97 mEq/L (98-107); Chol/HDL Ratio 6.5 (0-4.9); Cholesterol 143 mg/dL (< 200); Globulin 3.6 g/dL (2.4-3.5); Glucose 298 mg/dL (70-105); HDL Cholesterol 22 mg/dL (40-59); INR 1.2; LDL Cholesterol,Calculated 86 mg/dL (< 100); Magnesium 1.5 mg/dL (1.6-2.6); Osmolality,Calculated 280 (280-300); Potassium 3.6 mEq/L (3.5-5.1); Prothrombin Time 13.6 Seconds (9.4-12.1); Sodium 130 mEq/L (136-145); Total Protein 7.4 g/dL (6.4-8.9); Triglycerides 175 mg/dL (< 150); Troponin I 0.03 ng/mL (< 0.04); eGFR For African Americans > 60 (> 60); eGFR For Non-African Americans > 60 (> 60)
[2020-10-29] MEDS ORDERED: Dextrose Gel 15 GM/37.5 ML TUBE PO PRN ×2 (07:42)
[2020-10-29] MEDS ORDERED: *HR* Dextrose 50 % in Water (Vial) 50 ML VIAL IVP PRN (07:42)
[2020-10-29] MEDS ORDERED: D5% in Water 1,000 ML IVC PRN (07:42)
[2020-10-29] MEDS ORDERED: Vancomycin 1,500 MG/265 ML IV.SOLN IVPB SCH (08:00)
[2020-10-29 08:18] LABS: C-Reactive Protein 256 mg/L (Less than 10)
[2020-10-29] MEDS ORDERED: *HR* OxyCODONE Immed Rel 5 MG TABLET PO PRN (08:19)
[2020-10-29] MEDS: Furosemide 40 MG/4 ML VIAL IVP SCH (08:59)
[2020-10-29] MEDS: lisinopriL 10 MG TABLET PO SCH (09:00)
[2020-10-29] MEDS: Gabapentin 100 MG CAPSULE PO SCH ×3 (09:00→19:53)
[2020-10-29] MEDS: Piperacillin/Tazobactam 3.375 GM in 0.9 % Sodium Chloride Mini Bag 100 ML IVPB SCH ×2 (09:00→16:35)
[2020-10-29] MEDS: Aspirin 81 MG TAB.CHEW PO SCH (09:00)
[2020-10-29] MEDS ORDERED: Isovue-370 500 ML BOTTLE IVP ONE (09:33)
[2020-10-29] MEDS: Ipratropium/Albuterol Neb 3 ML IH SCH ×3 (10:47→22:20)
[2020-10-29] MEDS: Budesonide/Formoterol 160/4.5 1 PUFF INH IH SCH ×2 (10:47→22:21)
[2020-10-29] MEDS: Insulin LISPRO 300 UNITS/3 ML VIAL SQ SCH ×5 (12:00→21:20)
[2020-10-29] MEDS: predniSONE 20 MG TABLET PO SCH (12:02)
[2020-10-29] MEDS: Vancomycin 1,500 MG/265 ML IV.SOLN IVPB SCH (12:22)
[2020-10-29] MEDS: *HR* OxyCODONE/APAP 10/325 TABLET PO PRN (16:34)
[2020-10-29] MEDS: traZODone 50 MG TABLET PO SCH (19:53)
[2020-10-29] MEDS: Acetaminophen 325 MG TABLET PO PRN (19:54)
[2020-10-29] MEDS ORDERED: Insulin DETEMIR 100 UNIT/ML X5UNITS SQ SCH (21:00)
[2020-10-30] MEDS: Piperacillin/Tazobactam 3.375 GM in 0.9 % Sodium Chloride Mini Bag 100 ML IVPB SCH ×3 (00:16→16:52)
[2020-10-30] MEDS: Vancomycin 1,500 MG/265 ML IV.SOLN IVPB SCH ×2 (00:25→12:28)
[2020-10-30] MEDS: Ipratropium/Albuterol Neb 3 ML IH SCH ×4 (03:45→21:56)
[2020-10-30] MEDS: *HR* Enoxaparin 40 MG/0.4 ML SYRINGE SQ SCH (04:22)
[2020-10-30 04:58] LABS: Basophils % 0.2 %; Hematocrit 37.5 % (37.5-50.1); Hemoglobin 11.5 g/dL (12.9-16.9); Lymphocytes # 1.7 K/mcL (0.6-4.6); Lymphocytes % 13.7 %; Mean Corpuscular HGB Conc 30.7 g/dL (31.6-35.5); Mean Corpuscular Hemoglobin 26.7 pg (28.0-33.3); Mean Corpuscular Volume 87.2 fL (83.0-100.0); Mean Platelet Volume 9.6 fL (9.4-12.4); Monocytes # 0.5 K/mcL (0.0-1.3); Neutrophils # 10.2 K/mcL (1.6-8.9); Platelet Count 206 K/mcL (140-400); Red Cell Distribution Width 14.1 % (11.5-14.5); Segmented Neutrophils % 81.1 %; White Blood Count 12.5 K/mcL (4.3-11.1)
[2020-10-30 05:14] LABS: Alanine Aminotransferase 15 Units/L (7-52); Albumin 3.3 g/dL (3.5-5.7); Alkaline Phosphatase 83 Units/L (34-104); Aspartate Amino Transferase 9 Units/L (13-39); BUN/Creatinine Ratio 28 (6-26); Bilirubin,Total 0.5 mg/dL (0.3-1.0); Blood Urea Nitrogen 19 mg/dL (6-20); Calcium 8.5 mg/dL (8.6-10.3); Carbon Dioxide 23 mEq/L (23-29); Chloride 101 mEq/L (98-107); Globulin 3.4 g/dL (2.4-3.5); Glucose 333 mg/dL (70-105); Osmolality,Calculated 289 (280-300); Potassium 4.1 mEq/L (3.5-5.1); Sodium 132 mEq/L (136-145); Total Protein 6.7 g/dL (6.4-8.9); eGFR For African Americans > 60 (> 60); eGFR For Non-African Americans > 60 (> 60)
[2020-10-30] MEDS: Furosemide 40 MG/4 ML VIAL IVP SCH (08:41)
[2020-10-30] MEDS: Gabapentin 100 MG CAPSULE PO SCH ×3 (08:42→22:31)
[2020-10-30] MEDS: Aspirin 81 MG TAB.CHEW PO SCH (08:42)
[2020-10-30] MEDS: predniSONE 20 MG TABLET PO SCH (08:43)
[2020-10-30] MEDS: lisinopriL 10 MG TABLET PO SCH (08:43)
[2020-10-30] MEDS: Insulin LISPRO 300 UNITS/3 ML VIAL SQ SCH ×5 (08:46→16:54)
[2020-10-30] MEDS: Acetaminophen 325 MG TABLET PO PRN ×2 (08:49→16:52)
[2020-10-30] MEDS: Budesonide/Formoterol 160/4.5 1 PUFF INH IH SCH ×2 (10:37→21:57)
[2020-10-30] MEDS: *HR* OxyCODONE/APAP 10/325 TABLET PO PRN ×2 (11:59→18:10)
[2020-10-30] MEDS ORDERED: amLODIPine 5 MG TABLET PO SCH (12:00)
[2020-10-30] MEDS ORDERED: Insulin Human Regular 10 UNIT in 0.9 % Sodium Chloride 10 ML IV ONE (17:18)
[2020-10-30] MEDS ORDERED: Insulin DETEMIR 100 UNIT/ML X5UNITS SQ SCH (21:00)
[2020-10-30] MEDS ORDERED: OLANZapine 5 MG TAB.RAPDIS PO SCH (21:00)
[2020-10-30] MEDS: traZODone 50 MG TABLET PO SCH (22:31)
[2020-10-30] MEDS: Famotidine 20 MG TABLET PO SCH (22:32)
[2020-10-31] MEDS: Vancomycin 1,500 MG/265 ML IV.SOLN IVPB SCH (00:42)
[2020-10-31] MEDS: Piperacillin/Tazobactam 3.375 GM in 0.9 % Sodium Chloride Mini Bag 100 ML IVPB SCH (00:43)
[2020-10-31] MEDS: *HR* Enoxaparin 40 MG/0.4 ML SYRINGE SQ SCH (03:44)
[2020-10-31] MEDS: Ipratropium/Albuterol Neb 3 ML IH SCH ×4 (03:47→21:01)
[2020-10-31 05:07] LABS: Basophils % 0.4 %; Eosinophils % 0.2 %; Hematocrit 36.9 % (37.5-50.1); Hemoglobin 11.5 g/dL (12.9-16.9); Lymphocytes # 2.4 K/mcL (0.6-4.6); Lymphocytes % 20.8 %; Mean Corpuscular HGB Conc 31.2 g/dL (31.6-35.5); Mean Corpuscular Hemoglobin 27.8 pg (28.0-33.3); Mean Corpuscular Volume 89.1 fL (83.0-100.0); Mean Platelet Volume 9.5 fL (9.4-12.4); Monocytes # 0.6 K/mcL (0.0-1.3); Neutrophils # 8.2 K/mcL (1.6-8.9); Platelet Count 209 K/mcL (140-400); Red Blood Count 4.14 M/mcL (4.19-5.50); Red Cell Distribution Width 14.1 % (11.5-14.5); Segmented Neutrophils % 72.6 %; White Blood Count 11.3 K/mcL (4.3-11.1)
[2020-10-31 05:14] LABS: BUN/Creatinine Ratio 31 (6-26); Blood Urea Nitrogen 26 mg/dL (6-20); Carbon Dioxide 23 mEq/L (23-29); Chloride 102 mEq/L (98-107); Glucose 387 mg/dL (70-105); Osmolality,Calculated 295 (280-300); Potassium 4.1 mEq/L (3.5-5.1); Sodium 132 mEq/L (136-145); eGFR For African Americans > 60 (> 60); eGFR For Non-African Americans > 60 (> 60)
[2020-10-31] MEDS: Insulin LISPRO 300 UNITS/3 ML VIAL SQ SCH ×6 (07:16→18:01)
[2020-10-31] MEDS: Aspirin 81 MG TAB.CHEW PO SCH (08:43)
[2020-10-31] MEDS: Gabapentin 100 MG CAPSULE PO SCH ×3 (08:44→21:31)
[2020-10-31] MEDS: Famotidine 20 MG TABLET PO SCH ×2 (08:44→21:31)
[2020-10-31] MEDS: predniSONE 20 MG TABLET PO SCH (08:44)
[2020-10-31] MEDS: lisinopriL 10 MG TABLET PO SCH (08:44)
[2020-10-31] MEDS ORDERED: *HR* Meperidine 25 MG/ML SYRINGE IVP PRN ×2 (08:53→11:38)
[2020-10-31] MEDS ORDERED: *HR* HYDROmorphone PF 0.5 MG/0.5 ML SYRINGE IVP PRN ×2 (08:53→11:38)
[2020-10-31] MEDS ORDERED: Ondansetron 4 MG/2 ML VIAL IVP PRN ×2 (08:53→11:38)
[2020-10-31] MEDS ORDERED: Furosemide 20 MG TABLET PO SCH (09:00)
[2020-10-31] MEDS ORDERED: Isosorbide MONOnitrate (24 HR) 30 MG TAB.ER.24H PO SCH (09:00)
[2020-10-31] MEDS ORDERED: Cholecalciferol (D-3) 1,000 UNIT (25MCG) TABLET PO SCH (09:00)
[2020-10-31] MEDS ORDERED: Lidocaine -MPF 2% 2 ML VIAL ONE (09:03)
[2020-10-31] MEDS ORDERED: Dexamethasone 4 MG/ML VIAL ONE (09:03)
[2020-10-31] MEDS ORDERED: *HR* Rocuronium Bromide 50 MG/5 ML VIAL ONE (09:03)
[2020-10-31] MEDS ORDERED: *HR* Propofol 200 MG/20 ML VIAL IVP ONE (09:03)
[2020-10-31] MEDS ORDERED: *HR* FentaNYL (PF) 100 MCG/2 ML VIAL ONE (09:03)
[2020-10-31] MEDS ORDERED: Lidocaine HCL 4 ML Topical Solution (Laryng-O-Jet Kit Sterile Pak) TP ONE (09:03)
[2020-10-31] MEDS ORDERED: Ondansetron 4 MG/2 ML VIAL ONE (09:03)
[2020-10-31] MEDS ORDERED: *HR* Midazolam HCl 2 MG/2 ML VIAL ONE (09:03)
[2020-10-31] MEDS: Budesonide/Formoterol 160/4.5 1 PUFF INH IH SCH ×2 (10:31→21:01)
[2020-10-31] MEDS ORDERED: D5% in Water 1,000 ML IVC PRN (11:38)
[2020-10-31] MEDS ORDERED: Ondansetron ODT 4 MG TAB.RAPDIS SL PRN (11:38)
[2020-10-31] MEDS ORDERED: Naloxone 0.4 MG/ML INJ IVP PRN (11:38)
[2020-10-31] MEDS ORDERED: Dextrose Gel 15 GM/37.5 ML TUBE PO PRN ×2 (11:38)
[2020-10-31] MEDS ORDERED: *HR* Dextrose 50 % in Water (Vial) 50 ML VIAL IVP PRN (11:38)
[2020-10-31] MEDS ORDERED: Vancomycin 1,500 MG/265 ML IV.SOLN IVPB SCH (12:00)
[2020-10-31] MEDS: *HR* OxyCODONE/APAP 10/325 TABLET PO PRN ×2 (13:45→19:55)
[2020-10-31] MEDS ORDERED: Insulin DETEMIR 100 UNIT/ML X5UNITS SQ SCH (21:00)
[2020-10-31] MEDS: traZODone 50 MG TABLET PO SCH (21:30)
[2020-10-31] MEDS: Insulin DETEMIR 100 UNIT/ML X5UNITS SQ SCH (21:30)
[2020-10-31] MEDS: OLANZapine 5 MG TAB.RAPDIS PO SCH (21:31)
[2020-11-01] MEDS ORDERED: Vancomycin 1,750 MG/517.5 ML IV.SOLN IVPB SCH
[2020-11-01] MEDS: Ipratropium/Albuterol Neb 3 ML IH SCH ×4 (03:38→20:34)
[2020-11-01] MEDS: *HR* Enoxaparin 40 MG/0.4 ML SYRINGE SQ SCH (06:24)
[2020-11-01 07:16] LABS: Basophils # 0.1 K/mcL (0.0-0.2); Basophils % 0.8 %; Eosinophils % 0.5 %; Hematocrit 36.2 % (37.5-50.1); Hemoglobin 10.8 g/dL (12.9-16.9); Immature Granulocytes % 2.7 % (0-4); Lymphocytes # 1.8 K/mcL (0.6-4.6); Mean Corpuscular HGB Conc 29.8 g/dL (31.6-35.5); Mean Corpuscular Hemoglobin 26.9 pg (28.0-33.3); Mean Corpuscular Volume 90.3 fL (83.0-100.0); Mean Platelet Volume 9.8 fL (9.4-12.4); Monocytes # 0.4 K/mcL (0.0-1.3); Monocytes % 5.3 %; Neutrophils # 5.8 K/mcL (1.6-8.9); Platelet Count 217 K/mcL (140-400); Red Blood Count 4.01 M/mcL (4.19-5.50); Red Cell Distribution Width 13.9 % (11.5-14.5); Segmented Neutrophils % 68.7 %; White Blood Count 8.4 K/mcL (4.3-11.1)
[2020-11-01] MEDS: Famotidine 20 MG TABLET PO SCH ×2 (08:03→20:57)
[2020-11-01] MEDS: Cholecalciferol (D-3) 1,000 UNIT (25MCG) TABLET PO SCH (08:04)
[2020-11-01] MEDS: Furosemide 20 MG TABLET PO SCH (08:04)
[2020-11-01] MEDS: Aspirin 81 MG TAB.CHEW PO SCH (08:04)
[2020-11-01] MEDS: lisinopriL 10 MG TABLET PO SCH (08:05)
[2020-11-01] MEDS: Isosorbide MONOnitrate (24 HR) 30 MG TAB.ER.24H PO SCH (08:05)
[2020-11-01] MEDS: Gabapentin 100 MG CAPSULE PO SCH ×3 (08:05→20:57)
[2020-11-01] MEDS: Insulin LISPRO 300 UNITS/3 ML VIAL SQ SCH ×6 (08:06→16:25)
[2020-11-01 08:33] LABS: BUN/Creatinine Ratio 26 (6-26); Blood Urea Nitrogen 21 mg/dL (6-20); Carbon Dioxide 24 mEq/L (23-29); Chloride 105 mEq/L (98-107); Glucose 362 mg/dL (70-105); Osmolality,Calculated 298 (280-300); Potassium 4.7 mEq/L (3.5-5.1); Sodium 135 mEq/L (136-145); eGFR For African Americans > 60 (> 60); eGFR For Non-African Americans > 60 (> 60)
[2020-11-01] MEDS ORDERED: predniSONE 20 MG TABLET PO SCH (09:00)
[2020-11-01] MEDS: Budesonide/Formoterol 160/4.5 1 PUFF INH IH SCH ×2 (10:05→20:34)
[2020-11-01] MEDS: *HR* OxyCODONE/APAP 10/325 TABLET PO PRN ×2 (12:02→19:00)
[2020-11-01] MEDS: *HR* LORazepam 0.5 MG TABLET PO PRN (16:24)
[2020-11-01] MEDS: Doxycycline 100 MG CAPSULE PO SCH (20:57)
[2020-11-01] MEDS: OLANZapine 5 MG TAB.RAPDIS PO SCH (20:58)
[2020-11-01] MEDS: traZODone 50 MG TABLET PO SCH (20:58)
[2020-11-01] MEDS: Insulin DETEMIR 100 UNIT/ML X5UNITS SQ SCH (20:58)
[2020-11-01] MEDS ORDERED: Sulfamethoxazole/Trimeth DS 1 EACH TABLET PO SCH (21:00)
[2020-11-01] MEDS: Acetaminophen 325 MG TABLET PO PRN (21:13)
[2020-11-02] MEDS: Ipratropium/Albuterol Neb 3 ML IH SCH ×4 (02:52→22:04)
[2020-11-02] MEDS: *HR* Enoxaparin 40 MG/0.4 ML SYRINGE SQ SCH (06:07)
[2020-11-02 07:38] LABS: Basophils # 0.1 K/mcL (0.0-0.2); Basophils % 0.7 %; Eosinophils # 0.2 K/mcL (0.0-0.6); Eosinophils % 1.8 %; Hematocrit 34.1 % (37.5-50.1); Hemoglobin 10.5 g/dL (12.9-16.9); Immature Granulocytes % 3.5 % (0-4); Lymphocytes # 2.3 K/mcL (0.6-4.6); Lymphocytes % 27.3 %; Mean Corpuscular HGB Conc 30.8 g/dL (31.6-35.5); Mean Corpuscular Hemoglobin 27.3 pg (28.0-33.3); Mean Corpuscular Volume 88.8 fL (83.0-100.0); Mean Platelet Volume 9.6 fL (9.4-12.4); Monocytes # 0.5 K/mcL (0.0-1.3); Monocytes % 5.5 %; Neutrophils # 5.2 K/mcL (1.6-8.9); Platelet Count 242 K/mcL (140-400); Red Blood Count 3.84 M/mcL (4.19-5.50); Red Cell Distribution Width 14.1 % (11.5-14.5); Segmented Neutrophils % 61.2 %; White Blood Count 8.4 K/mcL (4.3-11.1)
[2020-11-02 07:53] LABS: BUN/Creatinine Ratio 28 (6-26); Blood Urea Nitrogen 21 mg/dL (6-20); Calcium 8.8 mg/dL (8.6-10.3); Carbon Dioxide 26 mEq/L (23-29); Chloride 104 mEq/L (98-107); Glucose 337 mg/dL (70-105); Osmolality,Calculated 296 (280-300); Sodium 135 mEq/L (136-145); eGFR For African Americans > 60 (> 60); eGFR For Non-African Americans > 60 (> 60)
[2020-11-02] MEDS: Budesonide/Formoterol 160/4.5 1 PUFF INH IH SCH ×2 (09:08→22:03)
[2020-11-02] MEDS: *HR* OxyCODONE/APAP 10/325 TABLET PO PRN ×2 (09:45→16:12)
[2020-11-02] MEDS: Famotidine 20 MG TABLET PO SCH ×2 (09:52→20:48)
[2020-11-02] MEDS: Isosorbide MONOnitrate (24 HR) 30 MG TAB.ER.24H PO SCH (09:52)
[2020-11-02] MEDS: Gabapentin 100 MG CAPSULE PO SCH ×3 (09:53→20:49)
[2020-11-02] MEDS: Aspirin 81 MG TAB.CHEW PO SCH (09:54)
[2020-11-02] MEDS: Furosemide 20 MG TABLET PO SCH (09:55)
[2020-11-02] MEDS: lisinopriL 10 MG TABLET PO SCH (09:55)
[2020-11-02] MEDS: Doxycycline 100 MG CAPSULE PO SCH ×2 (09:57→20:48)
[2020-11-02] MEDS: Insulin LISPRO 300 UNITS/3 ML VIAL SQ SCH ×6 (09:58→18:08)
[2020-11-02] MEDS: Cholecalciferol (D-3) 1,000 UNIT (25MCG) TABLET PO SCH (09:58)
[2020-11-02] MEDS: *HR* LORazepam 0.5 MG TABLET PO PRN (12:42)
[2020-11-02] MEDS: traZODone 50 MG TABLET PO SCH (20:49)
[2020-11-02] MEDS: OLANZapine 5 MG TAB.RAPDIS PO SCH (20:49)
[2020-11-02] MEDS: Insulin DETEMIR 100 UNIT/ML X5UNITS SQ SCH (20:49)
[2020-11-03] MEDS: *HR* OxyCODONE/APAP 10/325 TABLET PO PRN ×3 (00:58→18:26)
[2020-11-03] MEDS: Ipratropium/Albuterol Neb 3 ML IH SCH ×4 (04:19→22:29)
[2020-11-03] MEDS: *HR* Enoxaparin 40 MG/0.4 ML SYRINGE SQ SCH (06:14)
[2020-11-03 07:37] LABS: Basophils # 0.1 K/mcL (0.0-0.2); Basophils % 0.5 %; Eosinophils # 0.1 K/mcL (0.0-0.6); Eosinophils % 1.3 %; Hematocrit 34.4 % (37.5-50.1); Hemoglobin 10.8 g/dL (12.9-16.9); Immature Granulocytes % 2.9 % (0-4); Lymphocytes # 1.4 K/mcL (0.6-4.6); Lymphocytes % 12.7 %; Mean Corpuscular HGB Conc 31.4 g/dL (31.6-35.5); Mean Corpuscular Hemoglobin 27.6 pg (28.0-33.3); Mean Corpuscular Volume 87.8 fL (83.0-100.0); Mean Platelet Volume 9.4 fL (9.4-12.4); Monocytes # 0.9 K/mcL (0.0-1.3); Monocytes % 7.9 %; Neutrophils # 8.1 K/mcL (1.6-8.9); Platelet Count 235 K/mcL (140-400); Red Blood Count 3.92 M/mcL (4.19-5.50); Red Cell Distribution Width 14.3 % (11.5-14.5); Segmented Neutrophils % 74.7 %; White Blood Count 10.8 K/mcL (4.3-11.1)
[2020-11-03 08:00] LABS: BUN/Creatinine Ratio 29 (6-26); Blood Urea Nitrogen 24 mg/dL (6-20); Calcium 8.9 mg/dL (8.6-10.3); Carbon Dioxide 28 mEq/L (23-29); Chloride 100 mEq/L (98-107); Glucose 305 mg/dL (70-105); Osmolality,Calculated 294 (280-300); Potassium 4.3 mEq/L (3.5-5.1); Sodium 134 mEq/L (136-145); eGFR For African Americans > 60 (> 60); eGFR For Non-African Americans > 60 (> 60)
[2020-11-03] MEDS: Insulin LISPRO 300 UNITS/3 ML VIAL SQ SCH ×6 (10:05→18:28)
[2020-11-03] MEDS: *HR* LORazepam 0.5 MG TABLET PO PRN ×2 (10:06→21:15)
[2020-11-03] MEDS: Doxycycline 100 MG CAPSULE PO SCH ×2 (10:07→21:14)
[2020-11-03] MEDS: Famotidine 20 MG TABLET PO SCH ×2 (10:07→21:14)
[2020-11-03] MEDS: Isosorbide MONOnitrate (24 HR) 30 MG TAB.ER.24H PO SCH (10:07)
[2020-11-03] MEDS: Cholecalciferol (D-3) 1,000 UNIT (25MCG) TABLET PO SCH (10:08)
[2020-11-03] MEDS: lisinopriL 10 MG TABLET PO SCH (10:08)
[2020-11-03] MEDS: Gabapentin 100 MG CAPSULE PO SCH ×3 (10:08→21:14)
[2020-11-03] MEDS: Furosemide 20 MG TABLET PO SCH (10:08)
[2020-11-03] MEDS: Aspirin 81 MG TAB.CHEW PO SCH (10:08)
[2020-11-03] MEDS: Budesonide/Formoterol 160/4.5 1 PUFF INH IH SCH ×2 (11:50→22:29)
[2020-11-03] MEDS: traZODone 50 MG TABLET PO SCH (21:14)
[2020-11-03] MEDS: OLANZapine 5 MG TAB.RAPDIS PO SCH (21:14)
[2020-11-03] MEDS: Insulin DETEMIR 100 UNIT/ML X5UNITS SQ SCH (21:15)
[2020-11-04 02:28] LABS: Basophils # 0.1 K/mcL (0.0-0.2); Basophils % 1.3 %; Eosinophils # 0.1 K/mcL (0.0-0.6); Eosinophils % 1.3 %; Hematocrit 38.4 % (37.5-50.1); Hemoglobin 11.5 g/dL (12.9-16.9); Immature Granulocytes % 3.9 % (0-4); Lymphocytes # 1.4 K/mcL (0.6-4.6); Lymphocytes % 19.6 %; Mean Corpuscular HGB Conc 29.9 g/dL (31.6-35.5); Mean Corpuscular Hemoglobin 26.8 pg (28.0-33.3); Mean Corpuscular Volume 89.5 fL (83.0-100.0); Mean Platelet Volume 9.3 fL (9.4-12.4); Monocytes # 0.5 K/mcL (0.0-1.3); Monocytes % 7.5 %; Neutrophils # 4.6 K/mcL (1.6-8.9); Platelet Count 219 K/mcL (140-400); Red Blood Count 4.29 M/mcL (4.19-5.50); Red Cell Distribution Width 14.6 % (11.5-14.5); Segmented Neutrophils % 66.4 %; White Blood Count 6.9 K/mcL (4.3-11.1)
[2020-11-04 02:41] LABS: BUN/Creatinine Ratio 33 (6-26); Blood Urea Nitrogen 25 mg/dL (6-20); Calcium 8.6 mg/dL (8.6-10.3); Carbon Dioxide 22 mEq/L (23-29); Chloride 102 mEq/L (98-107); Glucose 252 mg/dL (70-105); Osmolality,Calculated 289 (280-300); Sodium 133 mEq/L (136-145); eGFR For African Americans > 60 (> 60); eGFR For Non-African Americans > 60 (> 60)
[2020-11-04] MEDS: Ipratropium/Albuterol Neb 3 ML IH SCH ×4 (04:17→22:25)
[2020-11-04] MEDS: *HR* Enoxaparin 40 MG/0.4 ML SYRINGE SQ SCH (05:49)
[2020-11-04] MEDS: Isosorbide MONOnitrate (24 HR) 30 MG TAB.ER.24H PO SCH (08:06)
[2020-11-04] MEDS: Famotidine 20 MG TABLET PO SCH ×2 (08:07→20:35)
[2020-11-04] MEDS: Cholecalciferol (D-3) 1,000 UNIT (25MCG) TABLET PO SCH (08:07)
[2020-11-04] MEDS: *HR* LORazepam 0.5 MG TABLET PO PRN ×2 (08:07→20:35)
[2020-11-04] MEDS: Doxycycline 100 MG CAPSULE PO SCH ×2 (08:07→20:35)
[2020-11-04] MEDS: Gabapentin 100 MG CAPSULE PO SCH ×3 (08:08→20:35)
[2020-11-04] MEDS: Aspirin 81 MG TAB.CHEW PO SCH (08:08)
[2020-11-04] MEDS: Furosemide 20 MG TABLET PO SCH (08:08)
[2020-11-04] MEDS: *HR* OxyCODONE/APAP 10/325 TABLET PO PRN ×2 (08:08→23:57)
[2020-11-04] MEDS: lisinopriL 10 MG TABLET PO SCH (08:08)
[2020-11-04] MEDS: Insulin LISPRO 300 UNITS/3 ML VIAL SQ SCH ×6 (08:13→17:59)
[2020-11-04] MEDS: Budesonide/Formoterol 160/4.5 1 PUFF INH IH SCH ×2 (10:03→22:25)
[2020-11-04] MEDS ORDERED: polyethylene glycoL 3350 17 GM POWD.PACK PO PRN (15:53)
[2020-11-04] MEDS: Insulin DETEMIR 100 UNIT/ML X5UNITS SQ SCH (20:35)
[2020-11-04] MEDS: traZODone 50 MG TABLET PO SCH (20:35)
[2020-11-04] MEDS: OLANZapine 5 MG TAB.RAPDIS PO SCH (20:35)
[2020-11-05] MEDS: Acetaminophen 325 MG TABLET PO PRN (04:02)
[2020-11-05] MEDS: Ipratropium/Albuterol Neb 3 ML IH SCH ×4 (04:04→21:35)
[2020-11-05 05:16] LABS: Basophils % 0.4 %; Eosinophils # 0.1 K/mcL (0.0-0.6); Eosinophils % 1.7 %; Hematocrit 33.4 % (37.5-50.1); Hemoglobin 10.3 g/dL (12.9-16.9); Immature Granulocytes % 1.6 % (0-4); Lymphocytes # 1.9 K/mcL (0.6-4.6); Lymphocytes % 27.8 %; Mean Corpuscular HGB Conc 30.8 g/dL (31.6-35.5); Mean Corpuscular Hemoglobin 27.4 pg (28.0-33.3); Mean Corpuscular Volume 88.8 fL (83.0-100.0); Mean Platelet Volume 9.1 fL (9.4-12.4); Monocytes # 0.5 K/mcL (0.0-1.3); Monocytes % 7.6 %; Neutrophils # 4.2 K/mcL (1.6-8.9); Platelet Count 220 K/mcL (140-400); Red Blood Count 3.76 M/mcL (4.19-5.50); Red Cell Distribution Width 14.6 % (11.5-14.5); Segmented Neutrophils % 60.9 %; White Blood Count 6.9 K/mcL (4.3-11.1)
[2020-11-05 05:30] LABS: BUN/Creatinine Ratio 33 (6-26); Blood Urea Nitrogen 24 mg/dL (6-20); Calcium 8.8 mg/dL (8.6-10.3); Carbon Dioxide 25 mEq/L (23-29); Chloride 100 mEq/L (98-107); Glucose 280 mg/dL (70-105); Osmolality,Calculated 298 (280-300); Potassium 4.1 mEq/L (3.5-5.1); Sodium 137 mEq/L (136-145); eGFR For African Americans > 60 (> 60); eGFR For Non-African Americans > 60 (> 60)
[2020-11-05] MEDS: *HR* Enoxaparin 40 MG/0.4 ML SYRINGE SQ SCH (05:47)
[2020-11-05] MEDS: *HR* OxyCODONE/APAP 10/325 TABLET PO PRN ×3 (07:58→23:17)
[2020-11-05] MEDS: Famotidine 20 MG TABLET PO SCH (07:58)
[2020-11-05] MEDS: Aspirin 81 MG TAB.CHEW PO SCH (07:58)
[2020-11-05] MEDS: Gabapentin 100 MG CAPSULE PO SCH ×3 (07:58→20:30)
[2020-11-05] MEDS: Cholecalciferol (D-3) 1,000 UNIT (25MCG) TABLET PO SCH (07:58)
[2020-11-05] MEDS: Doxycycline 100 MG CAPSULE PO SCH ×2 (07:58→20:31)
[2020-11-05] MEDS: *HR* LORazepam 0.5 MG TABLET PO PRN ×2 (07:59→20:31)
[2020-11-05] MEDS: lisinopriL 10 MG TABLET PO SCH (07:59)
[2020-11-05] MEDS: Isosorbide MONOnitrate (24 HR) 30 MG TAB.ER.24H PO SCH (07:59)
[2020-11-05] MEDS: Furosemide 20 MG TABLET PO SCH (07:59)
[2020-11-05] MEDS: Insulin LISPRO 300 UNITS/3 ML VIAL SQ SCH ×6 (08:02→16:18)
[2020-11-05] MEDS: Budesonide/Formoterol 160/4.5 1 PUFF INH IH SCH ×2 (10:43→21:35)
[2020-11-05] MEDS: OLANZapine 5 MG TAB.RAPDIS PO SCH (20:29)
[2020-11-05] MEDS: traZODone 50 MG TABLET PO SCH (20:29)
[2020-11-05] MEDS: Insulin DETEMIR 100 UNIT/ML X5UNITS SQ SCH (20:31)
[2020-11-06] MEDS: Famotidine 20 MG TABLET PO SCH ×3 (00:21→21:17)
[2020-11-06] MEDS: Ipratropium/Albuterol Neb 3 ML IH SCH ×4 (03:36→21:38)
[2020-11-06] MEDS: *HR* OxyCODONE/APAP 10/325 TABLET PO PRN ×3 (05:39→18:50)
[2020-11-06] MEDS: *HR* Enoxaparin 40 MG/0.4 ML SYRINGE SQ SCH (05:39)
[2020-11-06 05:52] LABS: Hematocrit 32.3 % (37.5-50.1); Mean Corpuscular HGB Conc 30.7 g/dL (31.6-35.5); Mean Corpuscular Hemoglobin 26.9 pg (28.0-33.3); Mean Corpuscular Volume 87.8 fL (83.0-100.0); Mean Platelet Volume 9.3 fL (9.4-12.4); Platelet Count 230 K/mcL (140-400); Red Blood Count 3.68 M/mcL (4.19-5.50); Red Cell Distribution Width 14.4 % (11.5-14.5); White Blood Count 7.4 K/mcL (4.3-11.1)
[2020-11-06 06:03] LABS: Hemoglobin 9.9 g/dL (12.9-16.9)
[2020-11-06 06:12] LABS: BUN/Creatinine Ratio 33 (6-26); Blood Urea Nitrogen 25 mg/dL (6-20); Calcium 8.8 mg/dL (8.6-10.3); Carbon Dioxide 26 mEq/L (23-29); Chloride 103 mEq/L (98-107); Glucose 290 mg/dL (70-105); Osmolality,Calculated 295 (280-300); Potassium 4.3 mEq/L (3.5-5.1); Sodium 135 mEq/L (136-145); eGFR For African Americans > 60 (> 60); eGFR For Non-African Americans > 60 (> 60)
[2020-11-06] MEDS: Insulin LISPRO 300 UNITS/3 ML VIAL SQ SCH ×6 (09:43→17:25)
[2020-11-06] MEDS: *HR* LORazepam 0.5 MG TABLET PO PRN ×2 (09:44→21:18)
[2020-11-06] MEDS: Aspirin 81 MG TAB.CHEW PO SCH (09:44)
[2020-11-06] MEDS: Doxycycline 100 MG CAPSULE PO SCH ×2 (09:44→21:18)
[2020-11-06] MEDS: Gabapentin 100 MG CAPSULE PO SCH ×3 (09:44→21:17)
[2020-11-06] MEDS: Cholecalciferol (D-3) 1,000 UNIT (25MCG) TABLET PO SCH (09:45)
[2020-11-06] MEDS: Furosemide 20 MG TABLET PO SCH (09:45)
[2020-11-06] MEDS: Isosorbide MONOnitrate (24 HR) 30 MG TAB.ER.24H PO SCH (09:45)
[2020-11-06] MEDS: lisinopriL 10 MG TABLET PO SCH (09:45)
[2020-11-06] MEDS: Budesonide/Formoterol 160/4.5 1 PUFF INH IH SCH ×2 (11:13→21:38)
[2020-11-06] MEDS: OLANZapine 5 MG TAB.RAPDIS PO SCH (21:17)
[2020-11-06] MEDS: traZODone 50 MG TABLET PO SCH (21:18)
[2020-11-06] MEDS: Insulin DETEMIR 100 UNIT/ML X5UNITS SQ SCH (21:18)
[2020-11-07] MEDS: *HR* OxyCODONE/APAP 10/325 TABLET PO PRN ×4 (01:43→20:27)
[2020-11-07] MEDS: Ipratropium/Albuterol Neb 3 ML IH SCH ×4 (03:52→22:27)
[2020-11-07] MEDS: *HR* Enoxaparin 40 MG/0.4 ML SYRINGE SQ SCH (05:49)
[2020-11-07] MEDS: Insulin LISPRO 300 UNITS/3 ML VIAL SQ SCH ×6 (08:07→17:48)
[2020-11-07] MEDS: Furosemide 20 MG TABLET PO SCH (08:08)
[2020-11-07] MEDS: Gabapentin 100 MG CAPSULE PO SCH ×3 (08:08→20:28)
[2020-11-07] MEDS: Aspirin 81 MG TAB.CHEW PO SCH (08:09)
[2020-11-07] MEDS: Doxycycline 100 MG CAPSULE PO SCH ×2 (08:10→20:28)
[2020-11-07] MEDS: Famotidine 20 MG TABLET PO SCH ×2 (08:10→20:28)
[2020-11-07] MEDS: lisinopriL 10 MG TABLET PO SCH (08:10)
[2020-11-07] MEDS: Isosorbide MONOnitrate (24 HR) 30 MG TAB.ER.24H PO SCH (08:10)
[2020-11-07] MEDS: Cholecalciferol (D-3) 1,000 UNIT (25MCG) TABLET PO SCH (08:10)
[2020-11-07 09:34] LABS: Hematocrit 35.5 % (37.5-50.1); Hemoglobin 10.9 g/dL (12.9-16.9); Mean Corpuscular HGB Conc 30.7 g/dL (31.6-35.5); Mean Corpuscular Hemoglobin 27.3 pg (28.0-33.3); Mean Platelet Volume 9.2 fL (9.4-12.4); Platelet Count 225 K/mcL (140-400); Red Blood Count 3.99 M/mcL (4.19-5.50); Red Cell Distribution Width 14.3 % (11.5-14.5)
[2020-11-07 09:54] LABS: BUN/Creatinine Ratio 29 (6-26); Blood Urea Nitrogen 23 mg/dL (6-20); Calcium 9.1 mg/dL (8.6-10.3); Carbon Dioxide 28 mEq/L (23-29); Chloride 100 mEq/L (98-107); Glucose 297 mg/dL (70-105); Osmolality,Calculated 293 (280-300); Potassium 4.7 mEq/L (3.5-5.1); Sodium 134 mEq/L (136-145); eGFR For African Americans > 60 (> 60); eGFR For Non-African Americans > 60 (> 60)
[2020-11-07] MEDS: Budesonide/Formoterol 160/4.5 1 PUFF INH IH SCH ×2 (10:33→22:28)
[2020-11-07] MEDS: traZODone 50 MG TABLET PO SCH (20:28)
[2020-11-07] MEDS: OLANZapine 5 MG TAB.RAPDIS PO SCH (20:29)
[2020-11-07] MEDS: Insulin DETEMIR 100 UNIT/ML X5UNITS SQ SCH (20:31)
[2020-11-07] MEDS: *HR* LORazepam 0.5 MG TABLET PO PRN (20:39)
[2020-11-08 03:10] LABS: Hematocrit 35.1 % (37.5-50.1); Hemoglobin 10.9 g/dL (12.9-16.9); Mean Corpuscular HGB Conc 31.1 g/dL (31.6-35.5); Mean Corpuscular Hemoglobin 27.4 pg (28.0-33.3); Mean Corpuscular Volume 88.2 fL (83.0-100.0); Mean Platelet Volume 9.3 fL (9.4-12.4); Platelet Count 254 K/mcL (140-400); Red Blood Count 3.98 M/mcL (4.19-5.50); Red Cell Distribution Width 14.2 % (11.5-14.5); White Blood Count 7.1 K/mcL (4.3-11.1)
[2020-11-08 03:21] LABS: BUN/Creatinine Ratio 31 (6-26); Blood Urea Nitrogen 22 mg/dL (6-20); Calcium 9.3 mg/dL (8.6-10.3); Carbon Dioxide 27 mEq/L (23-29); Chloride 103 mEq/L (98-107); Glucose 210 mg/dL (70-105); Osmolality,Calculated 294 (280-300); Potassium 4.1 mEq/L (3.5-5.1); Sodium 137 mEq/L (136-145); eGFR For African Americans > 60 (> 60); eGFR For Non-African Americans > 60 (> 60)
[2020-11-08] MEDS: *HR* OxyCODONE/APAP 10/325 TABLET PO PRN ×3 (03:32→16:48)
[2020-11-08] MEDS: Ipratropium/Albuterol Neb 3 ML IH SCH ×3 (03:48→15:49)
[2020-11-08] MEDS: *HR* Enoxaparin 40 MG/0.4 ML SYRINGE SQ SCH (05:22)
[2020-11-08] MEDS: Aspirin 81 MG TAB.CHEW PO SCH (08:07)
[2020-11-08] MEDS: Gabapentin 100 MG CAPSULE PO SCH (08:07)
[2020-11-08] MEDS: Isosorbide MONOnitrate (24 HR) 30 MG TAB.ER.24H PO SCH (08:08)
[2020-11-08] MEDS: Cholecalciferol (D-3) 1,000 UNIT (25MCG) TABLET PO SCH (08:08)
[2020-11-08] MEDS: lisinopriL 10 MG TABLET PO SCH (08:08)
[2020-11-08] MEDS: Insulin LISPRO 300 UNITS/3 ML VIAL SQ SCH ×4 (08:09→11:22)
[2020-11-08] MEDS: Famotidine 20 MG TABLET PO SCH (08:09)
[2020-11-08] MEDS: Furosemide 20 MG TABLET PO SCH (08:09)
[2020-11-08 10:38] VITALS: BP 154/85
[2020-11-08] MEDS: Budesonide/Formoterol 160/4.5 1 PUFF INH IH SCH (10:50)
[2020-11-08] MEDS: *HR* LORazepam 0.5 MG TABLET PO PRN (12:46)
[2020-11-08 14:29] LABS: Adenovirus Not Detected (Not Detect); Bordetella Pertussis Not Detected (Not Detect); Chlamydophila pneumoniae Not Detected (Not Detect); Coronavirus 229E Not Detected (Not Detect); Coronavirus HKU1 Not Detected (Not Detect); Coronavirus NL63 Not Detected (Not Detect); Coronavirus OC43 Not Detected (Not Detect); Human Metapneumovirus Not Detected (Not Detect); Human Rhinovirus/Enterovirus Not Detected (Not Detect); Influenza A Subtype 2009 H1 Not Detected (Not Detect); Influenza B Not Detected (Not Detect); Mycoplasma pneumoniae Not Detected (Not Detect); Parainfluenza Virus 1 Not Detected (Not Detect); Parainfluenza Virus 2 Not Detected (Not Detect); Parainfluenza Virus 3 Not Detected (Not Detect); Parainfluenza Virus 4 Not Detected (Not Detect); Respiratory Syncytial Virus Not Detected (Not Detect); SARS-CoV-2 Not Detected (Not Detect)
== END 2020-11-08 16:57 | DRG 853 ==
LOC: 3ANU → SUATTDRO 10-29 05:39
PROVIDERS: ADMIT Internal Medicine; ATTEND Internal Medicine

== ENCOUNTER 2021-12-17 15:49 | Inpatient (IN) ==
[2021-12-17 16:19] LABS: Basophils % 0.3 %; Eosinophils # 0.1 K/mcL (0.0-0.6); Eosinophils % 0.6 %; Hematocrit 44.2 % (37.5-50.1); Immature Granulocytes % 0.6 % (0-4); Lymphocytes # 2.3 K/mcL (0.6-4.6); Lymphocytes % 20.8 %; Mean Corpuscular HGB Conc 32.6 g/dL (31.6-35.5); Mean Corpuscular Hemoglobin 27.2 pg (28.0-33.3); Mean Corpuscular Volume 83.6 fL (83.0-100.0); Mean Platelet Volume 8.8 fL (9.4-12.4); Monocytes # 0.5 K/mcL (0.0-1.3); Monocytes % 4.3 %; Platelet Count 229 K/mcL (140-400); Red Blood Count 5.29 M/mcL (4.19-5.50); Red Cell Distribution Width 14.4 % (11.5-14.5); Segmented Neutrophils % 73.4 %; White Blood Count 10.9 K/mcL (4.3-11.1)
[2021-12-17 16:20] LABS: Hemoglobin 14.4 g/dL (12.9-16.9)
[2021-12-17 16:40] LABS: Acetaminophen < 10 mcg/mL (10-20); BUN/Creatinine Ratio 20 (6-26); Blood Urea Nitrogen 11 mg/dL (8-23); Calcium 9.4 mg/dL (8.6-10.3); Carbon Dioxide 24 mEq/L (23-29); Chloride 97 mEq/L (98-107); Ethanol < 10 mg/dL (Less than 10); Glucose 360 mg/dL (70-105); Osmolality,Calculated 286 (280-300); Potassium 3.9 mEq/L (3.5-5.1); Salicylate < 2.5 mg/dL (15.0-30.0); Sodium 131 mEq/L (136-145); eGFR For African Americans > 60 (> 60); eGFR For Non-African Americans > 60 (> 60)
[2021-12-17 16:41] LABS: Troponin I < 0.03 ng/mL (< 0.04)
[2021-12-17 17:34] LABS: Bilirubin,Urine Negative (Negative); Blood,Urine Negative (Negative); Clarity,Urine Clear (Clear); Color,Urine Light-Yellow (Yellow); Glucose,Urine (UA) >=1000 mg/dL (Normal); Ketones,Urine 20 mg/dL (Negative); Leukocyte Esterase,Urine Negative (Negative); Nitrite,Urine Negative (Negative); Protein,Urine 50 mg/dL (Neg-Trace); RBC,Urine 0-3 per hpf (0-3); Specific Gravity,Urine > 1.030 (1.010-1.025); Squamous Epithelial Cell,Urine Few per hpf (None-Few); Urobilinogen,Urine Normal (Normal); WBC,Urine 0-3 per hpf (0-3)
[2021-12-17 17:36] LABS: Amphetamine Screen,Urine Negative ng/mL (Cutoff=1000); Barbiturate Screen,Urine Negative ng/mL (Cutoff=200); Benzodiazepines Screen,Urine Negative ng/mL (Cutoff=200); Cannabinoid Screen,Urine Negative ng/mL (Cutoff = 50); Cocaine Screen,Urine Negative ng/mL (Cutoff= 300); Opiate Screen,Urine Negative ng/mL (Cutoff=300); Phencyclidine Screen,Urine Negative ng/mL (Cutoff=25)
[2021-12-17 17:43] LABS: Influenza A PCR Negative (Negative); Influenza B PCR Negative (Negative); Resp. Syncytial Virus PCR Negative (Negative)
[2021-12-17 17:44] LABS: SARS-CoV-2 by PCR (In House) Negative (Negative)
[2021-12-17] MEDS ORDERED: Ondansetron ODT 4 MG TAB.RAPDIS SL PRN (21:04)
[2021-12-17] MEDS ORDERED: Naloxone 0.4 MG/ML INJ IVP PRN (21:04)
[2021-12-17] MEDS ORDERED: Perflutren Lipid Microsphere 1.3 ML in 0.9 % Sodium Chloride 8.7 ML IVP PRN (21:24)
[2021-12-17] MEDS ORDERED: Levalbuterol 1 PUFF INHALER IH SCH (22:00)
[2021-12-17] MEDS: Azithromycin 250 MG TABLET PO SCH (22:38)
[2021-12-17] MEDS: MethylPREDNISolone 40 MG/ML VIAL IVP SCH (22:40)
[2021-12-17] MEDS: Acetaminophen 325 MG TABLET PO PRN (22:44)
[2021-12-17] MEDS ORDERED: D5% in Water 1,000 ML IVC PRN (23:33)
[2021-12-17] MEDS ORDERED: *HR* Dextrose 50 % in Water (Syg) 50 ML SYRINGE IVP PRN (23:33)
[2021-12-17] MEDS ORDERED: Dextrose Gel 15 GM/37.5 ML TUBE PO PRN ×2 (23:33)
[2021-12-17] MEDS ORDERED: Insulin DETEMIR 100 UNIT/ML X5UNITS SUBQ SCH (23:45)
[2021-12-18] MEDS ORDERED: Ipratropium/Albuterol Neb 3 ML IH SCH
[2021-12-18] MEDS ORDERED: Ipratropium 1 PUFF INHALER IH SCH
[2021-12-18 00:14] LABS: Troponin I 0.04 ng/mL (< 0.04)
[2021-12-18] MEDS: traZODone 50 MG TABLET PO SCH ×2 (00:16→20:29)
[2021-12-18] MEDS: OLANZapine 5 MG TAB.RAPDIS PO SCH ×2 (00:16→20:29)
[2021-12-18] MEDS: Ipratropium/Albuterol Neb 3 ML IH SCH ×4 (04:13→23:42)
[2021-12-18] MEDS: *HR* Heparin 5,000 UNIT/ML VIAL SQ SCH ×2 (05:38→17:17)
[2021-12-18 06:21] LABS: Basophils % 0.4 %; Hemoglobin 13.9 g/dL (12.9-16.9); Immature Granulocytes % 1.1 % (0-4); Lymphocytes # 1.4 K/mcL (0.6-4.6); Lymphocytes % 15.2 %; Mean Corpuscular HGB Conc 32.3 g/dL (31.6-35.5); Mean Corpuscular Hemoglobin 27.6 pg (28.0-33.3); Mean Corpuscular Volume 85.5 fL (83.0-100.0); Mean Platelet Volume 9.1 fL (9.4-12.4); Monocytes % 0.4 %; Neutrophils # 7.8 K/mcL (1.6-8.9); Platelet Count 224 K/mcL (140-400); Red Blood Count 5.03 M/mcL (4.19-5.50); Red Cell Distribution Width 14.3 % (11.5-14.5); Segmented Neutrophils % 82.9 %; White Blood Count 9.4 K/mcL (4.3-11.1)
[2021-12-18 06:50] LABS: BUN/Creatinine Ratio 27 (6-26); Blood Urea Nitrogen 20 mg/dL (8-23); Calcium 9.4 mg/dL (8.6-10.3); Carbon Dioxide 22 mEq/L (23-29); Chloride 97 mEq/L (98-107); Glucose 496 mg/dL (70-105); Osmolality,Calculated 295 (280-300); Potassium 4.5 mEq/L (3.5-5.1); Sodium 130 mEq/L (136-145); Troponin I < 0.03 ng/mL (< 0.04); eGFR For African Americans > 60 (> 60); eGFR For Non-African Americans > 60 (> 60)
[2021-12-18] MEDS: Gabapentin 100 MG CAPSULE PO SCH ×3 (08:02→20:29)
[2021-12-18] MEDS: Furosemide 20 MG TABLET PO SCH (08:02)
[2021-12-18] MEDS: Aspirin Enteric Coated 81 MG Tablet PO SCH (08:03)
[2021-12-18] MEDS: hydrOXYzine pamoate 25 MG CAPSULE PO SCH ×3 (08:03→20:29)
[2021-12-18] MEDS: Isosorbide MONOnitrate (24 HR) 30 MG TAB.ER.24H PO SCH (08:03)
[2021-12-18] MEDS: Insulin LISPRO 300 UNITS/3 ML VIAL SUBQ SCH ×3 (08:03→17:17)
[2021-12-18] MEDS: amLODIPine 5 MG TABLET PO SCH (08:03)
[2021-12-18] MEDS: MethylPREDNISolone 40 MG/ML VIAL IVP SCH ×2 (09:19→17:49)
[2021-12-18 10:53] LABS: Estimated Average Glucose 303 mg/dl; Hemoglobin A1C 12.2 %
[2021-12-18] MEDS ORDERED: Insulin LISPRO 300 UNITS/3 ML VIAL SUBQ ONE (16:47)
[2021-12-18] MEDS ORDERED: D5% in Water 1,000 ML IVC PRN (19:55)
[2021-12-18] MEDS ORDERED: *HR* Dextrose 50 % in Water (Syg) 50 ML SYRINGE IVP PRN (19:55)
[2021-12-18] MEDS ORDERED: Dextrose Gel 15 GM/37.5 ML TUBE PO PRN ×2 (19:55)
[2021-12-18] MEDS: Azithromycin 250 MG TABLET PO SCH (20:29)
[2021-12-18] MEDS ORDERED: Insulin LISPRO 300 UNITS/3 ML VIAL SUBQ SCH ×2 (21:00→22:31)
[2021-12-18] MEDS ORDERED: Insulin DETEMIR 100 UNIT/ML X5UNITS SUBQ SCH (21:00)
[2021-12-19] MEDS: Ipratropium/Albuterol Neb 3 ML IH SCH ×2 (04:17→11:30)
[2021-12-19] MEDS: *HR* Heparin 5,000 UNIT/ML VIAL SQ SCH ×2 (05:30→16:08)
[2021-12-19] MEDS: Aspirin Enteric Coated 81 MG Tablet PO SCH (08:57)
[2021-12-19] MEDS: Gabapentin 100 MG CAPSULE PO SCH ×3 (08:57→20:53)
[2021-12-19] MEDS: Furosemide 20 MG TABLET PO SCH (08:57)
[2021-12-19] MEDS: Isosorbide MONOnitrate (24 HR) 30 MG TAB.ER.24H PO SCH (08:57)
[2021-12-19] MEDS: predniSONE 20 MG TABLET PO SCH (08:57)
[2021-12-19] MEDS: amLODIPine 5 MG TABLET PO SCH (08:58)
[2021-12-19] MEDS: hydrOXYzine pamoate 25 MG CAPSULE PO SCH ×3 (08:58→20:53)
[2021-12-19] MEDS: Insulin LISPRO 300 UNITS/3 ML VIAL SUBQ SCH ×5 (08:58→20:52)
[2021-12-19] MEDS ORDERED: QUEtiapine Fumarate 25 MG TABLET PO ONE (16:36)
[2021-12-19] MEDS: Azithromycin 250 MG TABLET PO SCH (20:52)
[2021-12-19] MEDS: OLANZapine 5 MG TAB.RAPDIS PO SCH (20:53)
[2021-12-19] MEDS: Insulin DETEMIR 100 UNIT/ML X5UNITS SUBQ SCH (20:59)
[2021-12-19] MEDS: traZODone 50 MG TABLET PO SCH (22:41)
[2021-12-20 02:26] LABS: BUN/Creatinine Ratio 37 (6-26); Blood Urea Nitrogen 31 mg/dL (8-23); Calcium 9.1 mg/dL (8.6-10.3); Carbon Dioxide 23 mEq/L (23-29); Chloride 95 mEq/L (98-107); Glucose 435 mg/dL (70-105); Osmolality,Calculated 291 (280-300); Potassium 4.1 mEq/L (3.5-5.1); Sodium 128 mEq/L (136-145); eGFR For African Americans > 60 (> 60); eGFR For Non-African Americans > 60 (> 60)
[2021-12-20] MEDS: *HR* Heparin 5,000 UNIT/ML VIAL SQ SCH ×2 (04:58→16:22)
[2021-12-20] MEDS: amLODIPine 5 MG TABLET PO SCH (09:18)
[2021-12-20] MEDS: hydrOXYzine pamoate 25 MG CAPSULE PO SCH ×3 (09:18→20:22)
[2021-12-20] MEDS: predniSONE 20 MG TABLET PO SCH (09:19)
[2021-12-20] MEDS: Aspirin Enteric Coated 81 MG Tablet PO SCH (09:19)
[2021-12-20] MEDS: Gabapentin 100 MG CAPSULE PO SCH ×3 (09:19→20:21)
[2021-12-20] MEDS: Furosemide 20 MG TABLET PO SCH (09:19)
[2021-12-20] MEDS: Isosorbide MONOnitrate (24 HR) 30 MG TAB.ER.24H PO SCH (09:19)
[2021-12-20] MEDS: Insulin LISPRO 300 UNITS/3 ML VIAL SUBQ SCH ×4 (09:23→20:19)
[2021-12-20] MEDS: QUEtiapine Fumarate 25 MG TABLET PO PRN (16:24)
[2021-12-20] MEDS: Insulin DETEMIR 100 UNIT/ML X5UNITS SUBQ SCH (20:20)
[2021-12-20] MEDS: Azithromycin 250 MG TABLET PO SCH (20:22)
[2021-12-20] MEDS: OLANZapine 5 MG TAB.RAPDIS PO SCH (20:22)
[2021-12-20] MEDS: traZODone 50 MG TABLET PO SCH (21:33)
[2021-12-21] MEDS: QUEtiapine Fumarate 25 MG TABLET PO PRN ×3 (01:21→17:41)
[2021-12-21 02:21] LABS: Hematocrit 33.2 % (37.5-50.1); Mean Corpuscular HGB Conc 32.5 g/dL (31.6-35.5); Mean Corpuscular Hemoglobin 27.6 pg (28.0-33.3); Mean Corpuscular Volume 84.9 fL (83.0-100.0); Mean Platelet Volume 9.2 fL (9.4-12.4); Platelet Count 210 K/mcL (140-400); Red Blood Count 3.91 M/mcL (4.19-5.50); Red Cell Distribution Width 14.5 % (11.5-14.5); White Blood Count 10.4 K/mcL (4.3-11.1)
[2021-12-21 02:23] LABS: Hemoglobin 10.8 g/dL (12.9-16.9)
[2021-12-21 02:26] LABS: BUN/Creatinine Ratio 31 (6-26); Blood Urea Nitrogen 28 mg/dL (8-23); Calcium 8.9 mg/dL (8.6-10.3); Carbon Dioxide 25 mEq/L (23-29); Chloride 97 mEq/L (98-107); Glucose 362 mg/dL (70-105); Osmolality,Calculated 292 (280-300); Potassium 4.2 mEq/L (3.5-5.1); Sodium 131 mEq/L (136-145); eGFR For African Americans > 60 (> 60); eGFR For Non-African Americans > 60 (> 60)
[2021-12-21] MEDS: *HR* Heparin 5,000 UNIT/ML VIAL SQ SCH ×2 (05:43→17:43)
[2021-12-21] MEDS: Acetaminophen 325 MG TABLET PO PRN (06:46)
[2021-12-21] MEDS: hydrOXYzine pamoate 25 MG CAPSULE PO SCH ×3 (09:16→20:51)
[2021-12-21] MEDS: Aspirin Enteric Coated 81 MG Tablet PO SCH (09:16)
[2021-12-21] MEDS: amLODIPine 5 MG TABLET PO SCH (09:16)
[2021-12-21] MEDS: Isosorbide MONOnitrate (24 HR) 30 MG TAB.ER.24H PO SCH (09:17)
[2021-12-21] MEDS: Gabapentin 100 MG CAPSULE PO SCH ×3 (09:17→20:51)
[2021-12-21] MEDS: Insulin LISPRO 300 UNITS/3 ML VIAL SUBQ SCH ×4 (09:17→20:46)
[2021-12-21] MEDS: Furosemide 20 MG TABLET PO SCH (09:17)
[2021-12-21] MEDS: Insulin DETEMIR 100 UNIT/ML X5UNITS SUBQ SCH (20:46)
[2021-12-21] MEDS: OLANZapine 5 MG TAB.RAPDIS PO SCH (20:48)
[2021-12-21] MEDS: Azithromycin 250 MG TABLET PO SCH (20:49)
[2021-12-21] MEDS: traZODone 50 MG TABLET PO SCH (22:02)
[2021-12-21] MEDS: Ipratropium/Albuterol Neb 3 ML IH PRN (22:15)
[2021-12-22 01:05] LABS: Hematocrit 35.4 % (37.5-50.1); Hemoglobin 11.3 g/dL (12.9-16.9); Mean Corpuscular HGB Conc 31.9 g/dL (31.6-35.5); Mean Corpuscular Hemoglobin 27.4 pg (28.0-33.3); Mean Corpuscular Volume 85.9 fL (83.0-100.0); Platelet Count 192 K/mcL (140-400); Red Blood Count 4.12 M/mcL (4.19-5.50); Red Cell Distribution Width 14.5 % (11.5-14.5); White Blood Count 9.8 K/mcL (4.3-11.1)
[2021-12-22 01:24] LABS: BUN/Creatinine Ratio 39 (6-26); Blood Urea Nitrogen 27 mg/dL (8-23); Calcium 8.9 mg/dL (8.6-10.3); Carbon Dioxide 26 mEq/L (23-29); Chloride 99 mEq/L (98-107); Glucose 317 mg/dL (70-105); Osmolality,Calculated 289 (280-300); Sodium 131 mEq/L (136-145); eGFR For African Americans > 60 (> 60); eGFR For Non-African Americans > 60 (> 60)
[2021-12-22] MEDS: *HR* Heparin 5,000 UNIT/ML VIAL SQ SCH ×2 (05:14→17:39)
[2021-12-22] MEDS: Furosemide 20 MG TABLET PO SCH (08:51)
[2021-12-22] MEDS: amLODIPine 5 MG TABLET PO SCH (08:52)
[2021-12-22] MEDS: Gabapentin 100 MG CAPSULE PO SCH ×3 (09:29→20:45)
[2021-12-22] MEDS: hydrOXYzine pamoate 25 MG CAPSULE PO SCH ×3 (09:29→20:43)
[2021-12-22] MEDS: Isosorbide MONOnitrate (24 HR) 30 MG TAB.ER.24H PO SCH (09:30)
[2021-12-22] MEDS: Aspirin Enteric Coated 81 MG Tablet PO SCH (09:30)
[2021-12-22] MEDS: Insulin LISPRO 300 UNITS/3 ML VIAL SUBQ SCH ×4 (09:30→20:44)
[2021-12-22] MEDS: QUEtiapine Fumarate 25 MG TABLET PO PRN ×2 (13:46→23:23)
[2021-12-22] MEDS: Ipratropium/Albuterol Neb 3 ML IH PRN (15:37)
[2021-12-22] MEDS: OLANZapine 5 MG TAB.RAPDIS PO SCH (20:43)
[2021-12-22] MEDS: traZODone 50 MG TABLET PO SCH (20:43)
[2021-12-22] MEDS: Insulin DETEMIR 100 UNIT/ML X5UNITS SUBQ SCH (20:44)
[2021-12-23 02:51] LABS: Hematocrit 38.3 % (37.5-50.1); Hemoglobin 12.5 g/dL (12.9-16.9); Mean Corpuscular HGB Conc 32.6 g/dL (31.6-35.5); Mean Corpuscular Hemoglobin 27.7 pg (28.0-33.3); Mean Corpuscular Volume 84.9 fL (83.0-100.0); Mean Platelet Volume 9.5 fL (9.4-12.4); Platelet Count 221 K/mcL (140-400); Red Blood Count 4.51 M/mcL (4.19-5.50); Red Cell Distribution Width 14.4 % (11.5-14.5); White Blood Count 9.1 K/mcL (4.3-11.1)
[2021-12-23 03:04] LABS: BUN/Creatinine Ratio 28 (6-26); Blood Urea Nitrogen 20 mg/dL (8-23); Calcium 9.3 mg/dL (8.6-10.3); Carbon Dioxide 28 mEq/L (23-29); Chloride 97 mEq/L (98-107); Glucose 279 mg/dL (70-105); Osmolality,Calculated 285 (280-300); Potassium 4.1 mEq/L (3.5-5.1); Sodium 131 mEq/L (136-145); eGFR For African Americans > 60 (> 60); eGFR For Non-African Americans > 60 (> 60)
[2021-12-23] MEDS: *HR* Heparin 5,000 UNIT/ML VIAL SQ SCH ×2 (05:29→16:51)
[2021-12-23] MEDS: Insulin LISPRO 300 UNITS/3 ML VIAL SUBQ SCH ×4 (08:24→22:00)
[2021-12-23] MEDS: Isosorbide MONOnitrate (24 HR) 30 MG TAB.ER.24H PO SCH (08:26)
[2021-12-23] MEDS: Aspirin Enteric Coated 81 MG Tablet PO SCH (08:26)
[2021-12-23] MEDS: amLODIPine 5 MG TABLET PO SCH (08:27)
[2021-12-23] MEDS: Furosemide 20 MG TABLET PO SCH (08:27)
[2021-12-23] MEDS: Gabapentin 100 MG CAPSULE PO SCH ×3 (08:28→22:00)
[2021-12-23] MEDS: hydrOXYzine pamoate 25 MG CAPSULE PO SCH ×3 (08:28→21:59)
[2021-12-23] MEDS: Ipratropium/Albuterol Neb 3 ML IH PRN ×2 (10:47→20:19)
[2021-12-23] MEDS: QUEtiapine Fumarate 25 MG TABLET PO PRN (16:43)
[2021-12-23] MEDS: OLANZapine 5 MG TAB.RAPDIS PO SCH (21:58)
[2021-12-23] MEDS: traZODone 50 MG TABLET PO SCH (21:59)
[2021-12-23] MEDS: Insulin DETEMIR 100 UNIT/ML X5UNITS SUBQ SCH (22:01)
[2021-12-24] MEDS: *HR* Heparin 5,000 UNIT/ML VIAL SQ SCH ×2 (06:20→17:06)
[2021-12-24] MEDS: Ipratropium/Albuterol Neb 3 ML IH PRN (07:41)
[2021-12-24] MEDS: Insulin LISPRO 300 UNITS/3 ML VIAL SUBQ SCH ×4 (08:20→19:47)
[2021-12-24] MEDS: Furosemide 20 MG TABLET PO SCH (08:23)
[2021-12-24] MEDS: Aspirin Enteric Coated 81 MG Tablet PO SCH (08:23)
[2021-12-24] MEDS: Isosorbide MONOnitrate (24 HR) 30 MG TAB.ER.24H PO SCH (08:24)
[2021-12-24] MEDS: hydrOXYzine pamoate 25 MG CAPSULE PO SCH ×3 (08:24→19:50)
[2021-12-24] MEDS: amLODIPine 5 MG TABLET PO SCH (08:24)
[2021-12-24] MEDS: Gabapentin 100 MG CAPSULE PO SCH ×3 (08:24→19:49)
[2021-12-24] MEDS: QUEtiapine Fumarate 25 MG TABLET PO PRN (13:52)
[2021-12-24] MEDS: Insulin DETEMIR 100 UNIT/ML X5UNITS SUBQ SCH (19:48)
[2021-12-24] MEDS: OLANZapine 5 MG TAB.RAPDIS PO SCH (19:50)
[2021-12-24] MEDS: traZODone 50 MG TABLET PO SCH (23:00)
[2021-12-25] MEDS: *HR* Heparin 5,000 UNIT/ML VIAL SQ SCH ×2 (05:18→16:57)
[2021-12-25] MEDS: QUEtiapine Fumarate 25 MG TABLET PO PRN ×3 (05:18→22:16)
[2021-12-25] MEDS: Furosemide 20 MG TABLET PO SCH (09:05)
[2021-12-25] MEDS: Aspirin Enteric Coated 81 MG Tablet PO SCH (09:05)
[2021-12-25] MEDS: Isosorbide MONOnitrate (24 HR) 30 MG TAB.ER.24H PO SCH (09:05)
[2021-12-25] MEDS: hydrOXYzine pamoate 25 MG CAPSULE PO SCH ×3 (09:05→22:10)
[2021-12-25] MEDS: Gabapentin 100 MG CAPSULE PO SCH ×3 (09:05→20:49)
[2021-12-25] MEDS: amLODIPine 5 MG TABLET PO SCH (09:05)
[2021-12-25] MEDS: Insulin LISPRO 300 UNITS/3 ML VIAL SUBQ SCH ×4 (09:07→22:12)
[2021-12-25] MEDS: Acetaminophen 325 MG TABLET PO PRN (20:50)
[2021-12-25] MEDS: traZODone 50 MG TABLET PO SCH (20:50)
[2021-12-25] MEDS: OLANZapine 5 MG TAB.RAPDIS PO SCH (22:09)
[2021-12-25] MEDS: Insulin DETEMIR 100 UNIT/ML X5UNITS SUBQ SCH (22:18)
[2021-12-26] MEDS: *HR* Heparin 5,000 UNIT/ML VIAL SQ SCH ×2 (06:05→16:51)
[2021-12-26] MEDS: Gabapentin 100 MG CAPSULE PO SCH ×3 (08:52→21:28)
[2021-12-26] MEDS: Isosorbide MONOnitrate (24 HR) 30 MG TAB.ER.24H PO SCH (08:52)
[2021-12-26] MEDS: Furosemide 20 MG TABLET PO SCH (08:52)
[2021-12-26] MEDS: amLODIPine 5 MG TABLET PO SCH (08:53)
[2021-12-26] MEDS: hydrOXYzine pamoate 25 MG CAPSULE PO SCH ×3 (08:53→21:26)
[2021-12-26] MEDS: Aspirin Enteric Coated 81 MG Tablet PO SCH (08:53)
[2021-12-26] MEDS: Insulin LISPRO 300 UNITS/3 ML VIAL SUBQ SCH ×5 (08:59→23:50)
[2021-12-26] MEDS: Ipratropium/Albuterol Neb 3 ML IH PRN (14:07)
[2021-12-26] MEDS: Insulin DETEMIR 100 UNIT/ML X5UNITS SUBQ SCH (21:23)
[2021-12-26] MEDS: OLANZapine 5 MG TAB.RAPDIS PO SCH (21:25)
[2021-12-26] MEDS: QUEtiapine Fumarate 25 MG TABLET PO PRN (21:26)
[2021-12-26] MEDS: traZODone 50 MG TABLET PO SCH (21:27)
[2021-12-27] MEDS: *HR* Heparin 5,000 UNIT/ML VIAL SQ SCH ×2 (05:52→16:40)
[2021-12-27] MEDS: Insulin LISPRO 300 UNITS/3 ML VIAL SUBQ SCH ×4 (08:20→21:24)
[2021-12-27] MEDS: Gabapentin 100 MG CAPSULE PO SCH ×3 (08:25→21:16)
[2021-12-27] MEDS: Aspirin Enteric Coated 81 MG Tablet PO SCH (08:25)
[2021-12-27] MEDS: Isosorbide MONOnitrate (24 HR) 30 MG TAB.ER.24H PO SCH (08:26)
[2021-12-27] MEDS: Furosemide 20 MG TABLET PO SCH (08:26)
[2021-12-27] MEDS: amLODIPine 5 MG TABLET PO SCH (08:26)
[2021-12-27] MEDS: hydrOXYzine pamoate 25 MG CAPSULE PO SCH ×3 (08:26→21:17)
[2021-12-27 08:52] LABS: Hematocrit 36.6 % (37.5-50.1); Hemoglobin 11.9 g/dL (12.9-16.9); Mean Corpuscular HGB Conc 32.5 g/dL (31.6-35.5); Mean Corpuscular Hemoglobin 27.6 pg (28.0-33.3); Mean Corpuscular Volume 84.9 fL (83.0-100.0); Mean Platelet Volume 9.2 fL (9.4-12.4); Platelet Count 163 K/mcL (140-400); Red Blood Count 4.31 M/mcL (4.19-5.50); Red Cell Distribution Width 14.6 % (11.5-14.5); White Blood Count 6.7 K/mcL (4.3-11.1)
[2021-12-27 09:11] LABS: BUN/Creatinine Ratio 26 (6-26); Blood Urea Nitrogen 19 mg/dL (8-23); Calcium 8.9 mg/dL (8.6-10.3); Carbon Dioxide 30 mEq/L (23-29); Chloride 98 mEq/L (98-107); Glucose 280 mg/dL (70-105); Osmolality,Calculated 288 (280-300); Potassium 4.3 mEq/L (3.5-5.1); Sodium 133 mEq/L (136-145); eGFR For African Americans > 60 (> 60); eGFR For Non-African Americans > 60 (> 60)
[2021-12-27] MEDS: Ipratropium/Albuterol Neb 3 ML IH PRN ×2 (11:44→21:35)
[2021-12-27] MEDS: QUEtiapine Fumarate 25 MG TABLET PO PRN ×2 (14:11→21:17)
[2021-12-27] MEDS: Acetaminophen 325 MG TABLET PO PRN (16:41)
[2021-12-27] MEDS: OLANZapine 5 MG TAB.RAPDIS PO SCH (21:17)
[2021-12-27] MEDS: Insulin DETEMIR 100 UNIT/ML X5UNITS SUBQ SCH (21:25)
[2021-12-27] MEDS: traZODone 50 MG TABLET PO SCH (22:35)
[2021-12-28] MEDS: Insulin LISPRO 300 UNITS/3 ML VIAL SUBQ SCH ×6 (02:13→20:39)
[2021-12-28] MEDS: *HR* Heparin 5,000 UNIT/ML VIAL SQ SCH ×2 (05:40→15:46)
[2021-12-28] MEDS: amLODIPine 5 MG TABLET PO SCH (07:57)
[2021-12-28] MEDS: hydrOXYzine pamoate 25 MG CAPSULE PO SCH ×3 (07:57→20:41)
[2021-12-28] MEDS: Furosemide 20 MG TABLET PO SCH (07:57)
[2021-12-28] MEDS: Gabapentin 100 MG CAPSULE PO SCH ×3 (07:57→20:41)
[2021-12-28] MEDS: Aspirin Enteric Coated 81 MG Tablet PO SCH (07:57)
[2021-12-28] MEDS: Isosorbide MONOnitrate (24 HR) 30 MG TAB.ER.24H PO SCH (07:57)
[2021-12-28] MEDS: Insulin DETEMIR 100 UNIT/ML X5UNITS SUBQ SCH (20:40)
[2021-12-28] MEDS: OLANZapine 5 MG TAB.RAPDIS PO SCH (20:41)
[2021-12-28] MEDS: traZODone 50 MG TABLET PO SCH (20:41)
[2021-12-29] MEDS: *HR* Heparin 5,000 UNIT/ML VIAL SQ SCH ×2 (05:15→15:51)
[2021-12-29] MEDS: amLODIPine 5 MG TABLET PO SCH (07:11)
[2021-12-29] MEDS: hydrOXYzine pamoate 25 MG CAPSULE PO SCH ×3 (07:11→20:57)
[2021-12-29] MEDS: Furosemide 20 MG TABLET PO SCH (07:12)
[2021-12-29] MEDS: Isosorbide MONOnitrate (24 HR) 30 MG TAB.ER.24H PO SCH (07:12)
[2021-12-29] MEDS: Aspirin Enteric Coated 81 MG Tablet PO SCH (07:12)
[2021-12-29] MEDS: Gabapentin 100 MG CAPSULE PO SCH ×3 (07:12→20:56)
[2021-12-29] MEDS: Insulin LISPRO 300 UNITS/3 ML VIAL SUBQ SCH ×5 (07:12→20:41)
[2021-12-29] MEDS: Insulin DETEMIR 100 UNIT/ML X5UNITS SUBQ SCH (20:41)
[2021-12-29] MEDS: traZODone 50 MG TABLET PO SCH (20:56)
[2021-12-29] MEDS: OLANZapine 5 MG TAB.RAPDIS PO SCH (20:57)
[2021-12-30 05:14] LABS: ABG Base Excess 3 mEq/L (-2 to 3); ABG HCO3 30 mEq/L (21-27); ABG Oxygen Saturation 93 % (95-98); ABG PCO2 57 mmHg (35-45); ABG PH 7.33 pH Units (7.32-7.45); ABG PO2 72 mmHg (85-104); ABG TCO2 31 mEq/L (20-26)
[2021-12-30] MEDS: *HR* Heparin 5,000 UNIT/ML VIAL SQ SCH ×2 (05:18→16:45)
[2021-12-30] MEDS: hydrOXYzine pamoate 25 MG CAPSULE PO SCH ×3 (08:15→20:57)
[2021-12-30] MEDS: Furosemide 20 MG TABLET PO SCH (08:15)
[2021-12-30] MEDS: amLODIPine 5 MG TABLET PO SCH (08:15)
[2021-12-30] MEDS: Aspirin Enteric Coated 81 MG Tablet PO SCH (08:15)
[2021-12-30] MEDS: Isosorbide MONOnitrate (24 HR) 30 MG TAB.ER.24H PO SCH (08:15)
[2021-12-30] MEDS: Gabapentin 100 MG CAPSULE PO SCH ×3 (08:15→20:56)
[2021-12-30] MEDS: Insulin LISPRO 300 UNITS/3 ML VIAL SUBQ SCH ×5 (08:16→20:55)
[2021-12-30 10:13] LABS: Hematocrit 33.8 % (37.5-50.1); Hemoglobin 11.1 g/dL (12.9-16.9); Mean Corpuscular HGB Conc 32.8 g/dL (31.6-35.5); Mean Corpuscular Hemoglobin 28.4 pg (28.0-33.3); Mean Corpuscular Volume 86.4 fL (83.0-100.0); Mean Platelet Volume 9.4 fL (9.4-12.4); Platelet Count 170 K/mcL (140-400); Red Blood Count 3.91 M/mcL (4.19-5.50); Red Cell Distribution Width 14.4 % (11.5-14.5); White Blood Count 9.3 K/mcL (4.3-11.1)
[2021-12-30 10:28] LABS: BUN/Creatinine Ratio 25 (6-26); Blood Urea Nitrogen 15 mg/dL (8-23); Carbon Dioxide 29 mEq/L (23-29); Chloride 99 mEq/L (98-107); Glucose 265 mg/dL (70-105); Osmolality,Calculated 288 (280-300); Potassium 4.2 mEq/L (3.5-5.1); Sodium 134 mEq/L (136-145); eGFR For African Americans > 60 (> 60); eGFR For Non-African Americans > 60 (> 60)
[2021-12-30] MEDS ORDERED: polyethylene glycoL 3350 17 GM POWD.PACK PO ONE (10:37)
[2021-12-30] MEDS: QUEtiapine Fumarate 25 MG TABLET PO PRN (16:48)
[2021-12-30] MEDS: Insulin DETEMIR 100 UNIT/ML X5UNITS SUBQ SCH (20:55)
[2021-12-30] MEDS: OLANZapine 5 MG TAB.RAPDIS PO SCH (20:56)
[2021-12-30] MEDS: traZODone 50 MG TABLET PO SCH (20:57)
[2021-12-31] MEDS: *HR* Heparin 5,000 UNIT/ML VIAL SQ SCH ×2 (05:35→16:16)
[2021-12-31] MEDS: Gabapentin 100 MG CAPSULE PO SCH ×3 (08:43→21:55)
[2021-12-31] MEDS: hydrOXYzine pamoate 25 MG CAPSULE PO SCH ×3 (08:43→21:55)
[2021-12-31] MEDS: amLODIPine 5 MG TABLET PO SCH (08:43)
[2021-12-31] MEDS: Aspirin Enteric Coated 81 MG Tablet PO SCH (08:43)
[2021-12-31] MEDS: Insulin LISPRO 300 UNITS/3 ML VIAL SUBQ SCH ×5 (08:44→21:58)
[2021-12-31] MEDS: Isosorbide MONOnitrate (24 HR) 30 MG TAB.ER.24H PO SCH (08:44)
[2021-12-31] MEDS: Furosemide 20 MG TABLET PO SCH (08:44)
[2021-12-31] MEDS: Clobetasol Propionate 0.05% 15 GM Cream Tube TP SCH ×2 (14:24→21:57)
[2021-12-31] MEDS: OLANZapine 5 MG TAB.RAPDIS PO SCH (21:55)
[2021-12-31] MEDS: traZODone 50 MG TABLET PO SCH (21:55)
[2021-12-31] MEDS: QUEtiapine Fumarate 25 MG TABLET PO PRN (21:56)
[2021-12-31] MEDS: Insulin DETEMIR 100 UNIT/ML X5UNITS SUBQ SCH (21:56)
[2022-01-01] MEDS: Aspirin Enteric Coated 81 MG Tablet PO SCH (08:00)
[2022-01-01] MEDS: Gabapentin 100 MG CAPSULE PO SCH ×3 (08:00→21:05)
[2022-01-01] MEDS: Furosemide 20 MG TABLET PO SCH (08:00)
[2022-01-01] MEDS: Isosorbide MONOnitrate (24 HR) 30 MG TAB.ER.24H PO SCH (08:01)
[2022-01-01] MEDS: hydrOXYzine pamoate 25 MG CAPSULE PO SCH ×3 (08:01→21:06)
[2022-01-01] MEDS: Insulin LISPRO 300 UNITS/3 ML VIAL SUBQ SCH ×5 (08:01→21:09)
[2022-01-01] MEDS: amLODIPine 5 MG TABLET PO SCH (08:01)
[2022-01-01] MEDS: *HR* Heparin 5,000 UNIT/ML VIAL SQ SCH ×2 (08:02→17:14)
[2022-01-01] MEDS: Clobetasol Propionate 0.05% 15 GM Cream Tube TP SCH ×2 (08:02→21:08)
[2022-01-01] MEDS: OLANZapine 5 MG TAB.RAPDIS PO SCH (21:03)
[2022-01-01] MEDS: QUEtiapine Fumarate 25 MG TABLET PO PRN (21:05)
[2022-01-01] MEDS: traZODone 50 MG TABLET PO SCH (21:05)
[2022-01-01] MEDS: Insulin DETEMIR 100 UNIT/ML X5UNITS SUBQ SCH (21:07)
[2022-01-02] MEDS: *HR* Heparin 5,000 UNIT/ML VIAL SQ SCH ×2 (06:51→16:43)
[2022-01-02] MEDS: Furosemide 20 MG TABLET PO SCH (09:22)
[2022-01-02] MEDS: Isosorbide MONOnitrate (24 HR) 30 MG TAB.ER.24H PO SCH (09:22)
[2022-01-02] MEDS: Clobetasol Propionate 0.05% 15 GM Cream Tube TP SCH ×2 (09:22→21:24)
[2022-01-02] MEDS: Gabapentin 100 MG CAPSULE PO SCH ×3 (09:22→21:24)
[2022-01-02] MEDS: hydrOXYzine pamoate 25 MG CAPSULE PO SCH ×3 (09:22→21:23)
[2022-01-02] MEDS: Insulin LISPRO 300 UNITS/3 ML VIAL SUBQ SCH ×5 (09:23→21:26)
[2022-01-02] MEDS: Aspirin Enteric Coated 81 MG Tablet PO SCH (09:23)
[2022-01-02] MEDS: amLODIPine 5 MG TABLET PO SCH (09:23)
[2022-01-02] MEDS: QUEtiapine Fumarate 25 MG TABLET PO PRN (16:43)
[2022-01-02] MEDS: traZODone 50 MG TABLET PO SCH (21:23)
[2022-01-02] MEDS: OLANZapine 5 MG TAB.RAPDIS PO SCH (21:23)
[2022-01-02] MEDS: Insulin DETEMIR 100 UNIT/ML X5UNITS SUBQ SCH (21:24)
[2022-01-03] MEDS: *HR* Heparin 5,000 UNIT/ML VIAL SQ SCH ×2 (06:22→16:31)
[2022-01-03] MEDS: Insulin LISPRO 300 UNITS/3 ML VIAL SUBQ SCH ×5 (08:47→20:25)
[2022-01-03] MEDS: Isosorbide MONOnitrate (24 HR) 30 MG TAB.ER.24H PO SCH (08:47)
[2022-01-03] MEDS: Gabapentin 100 MG CAPSULE PO SCH ×3 (08:47→20:24)
[2022-01-03] MEDS: Aspirin Enteric Coated 81 MG Tablet PO SCH (08:47)
[2022-01-03] MEDS: Furosemide 20 MG TABLET PO SCH (08:47)
[2022-01-03] MEDS: amLODIPine 5 MG TABLET PO SCH (08:48)
[2022-01-03] MEDS: hydrOXYzine pamoate 25 MG CAPSULE PO SCH ×3 (08:48→20:24)
[2022-01-03] MEDS: Clobetasol Propionate 0.05% 15 GM Cream Tube TP SCH ×2 (08:50→20:26)
[2022-01-03] MEDS: polyethylene glycoL 3350 17 GM POWD.PACK PO SCH (16:30)
[2022-01-03] MEDS: OLANZapine 5 MG TAB.RAPDIS PO SCH (20:23)
[2022-01-03] MEDS: Insulin DETEMIR 100 UNIT/ML X5UNITS SUBQ SCH (20:24)
[2022-01-03] MEDS: traZODone 50 MG TABLET PO SCH (20:24)
[2022-01-04] MEDS: QUEtiapine Fumarate 25 MG TABLET PO PRN ×2 (00:55→11:48)
[2022-01-04] MEDS: *HR* Heparin 5,000 UNIT/ML VIAL SQ SCH ×2 (06:26→16:41)
[2022-01-04] MEDS: Aspirin Enteric Coated 81 MG Tablet PO SCH (09:20)
[2022-01-04] MEDS: Furosemide 20 MG TABLET PO SCH (09:20)
[2022-01-04] MEDS: Gabapentin 100 MG CAPSULE PO SCH ×3 (09:21→22:40)
[2022-01-04] MEDS: Isosorbide MONOnitrate (24 HR) 30 MG TAB.ER.24H PO SCH (09:21)
[2022-01-04] MEDS: polyethylene glycoL 3350 17 GM POWD.PACK PO SCH (09:21)
[2022-01-04] MEDS: amLODIPine 5 MG TABLET PO SCH (09:21)
[2022-01-04] MEDS: hydrOXYzine pamoate 25 MG CAPSULE PO SCH ×3 (09:21→22:40)
[2022-01-04] MEDS: Clobetasol Propionate 0.05% 15 GM Cream Tube TP SCH ×2 (09:21→22:38)
[2022-01-04] MEDS: Insulin LISPRO 300 UNITS/3 ML VIAL SUBQ SCH ×5 (09:22→22:39)
[2022-01-04] MEDS: Ipratropium/Albuterol Neb 3 ML IH PRN (09:40)
[2022-01-04] MEDS ORDERED: *HR* LORazepam 2 MG/ML VIAL IVP ONE (13:47)
[2022-01-04] MEDS: Bisacodyl 10 MG RECTAL SUPPOSITORY RC PRN (16:41)
[2022-01-04] MEDS: Insulin DETEMIR 100 UNIT/ML X5UNITS SUBQ SCH (22:39)
[2022-01-04] MEDS: traZODone 50 MG TABLET PO SCH (22:40)
[2022-01-04] MEDS: OLANZapine 5 MG TAB.RAPDIS PO SCH (22:41)
[2022-01-05] MEDS: QUEtiapine Fumarate 25 MG TABLET PO PRN ×3 (02:56→20:41)
[2022-01-05] MEDS: *HR* Heparin 5,000 UNIT/ML VIAL SQ SCH ×2 (05:38→16:34)
[2022-01-05] MEDS: Aspirin Enteric Coated 81 MG Tablet PO SCH (09:44)
[2022-01-05] MEDS: hydrOXYzine pamoate 25 MG CAPSULE PO SCH ×3 (09:45→20:32)
[2022-01-05] MEDS: amLODIPine 5 MG TABLET PO SCH (09:45)
[2022-01-05] MEDS: Isosorbide MONOnitrate (24 HR) 30 MG TAB.ER.24H PO SCH (09:45)
[2022-01-05] MEDS: Gabapentin 100 MG CAPSULE PO SCH ×3 (09:45→20:33)
[2022-01-05] MEDS: Furosemide 20 MG TABLET PO SCH (09:45)
[2022-01-05] MEDS: Clobetasol Propionate 0.05% 15 GM Cream Tube TP SCH ×2 (09:46→20:33)
[2022-01-05] MEDS: Insulin LISPRO 300 UNITS/3 ML VIAL SUBQ SCH ×5 (09:46→20:34)
[2022-01-05] MEDS: polyethylene glycoL 3350 17 GM POWD.PACK PO SCH (09:46)
[2022-01-05] MEDS: OLANZapine 5 MG TAB.RAPDIS PO SCH (20:33)
[2022-01-05] MEDS: traZODone 50 MG TABLET PO SCH (20:33)
[2022-01-05] MEDS: Insulin DETEMIR 100 UNIT/ML X5UNITS SUBQ SCH (20:34)
[2022-01-06] MEDS: *HR* Heparin 5,000 UNIT/ML VIAL SQ SCH ×2 (05:58→17:58)
[2022-01-06] MEDS: amLODIPine 5 MG TABLET PO SCH (09:14)
[2022-01-06] MEDS: hydrOXYzine pamoate 25 MG CAPSULE PO SCH ×3 (09:14→20:56)
[2022-01-06] MEDS: Gabapentin 100 MG CAPSULE PO SCH ×3 (09:14→20:56)
[2022-01-06] MEDS: polyethylene glycoL 3350 17 GM POWD.PACK PO SCH (09:14)
[2022-01-06] MEDS: Furosemide 20 MG TABLET PO SCH (09:15)
[2022-01-06] MEDS: Isosorbide MONOnitrate (24 HR) 30 MG TAB.ER.24H PO SCH (09:15)
[2022-01-06] MEDS: Aspirin Enteric Coated 81 MG Tablet PO SCH (09:16)
[2022-01-06] MEDS: Insulin LISPRO 300 UNITS/3 ML VIAL SUBQ SCH ×5 (09:17→20:57)
[2022-01-06] MEDS: Clobetasol Propionate 0.05% 15 GM Cream Tube TP SCH ×2 (09:17→20:56)
[2022-01-06] MEDS: QUEtiapine Fumarate 25 MG TABLET PO PRN ×2 (14:22→22:29)
[2022-01-06] MEDS: traZODone 50 MG TABLET PO SCH (20:56)
[2022-01-06] MEDS: OLANZapine 5 MG TAB.RAPDIS PO SCH (20:56)
[2022-01-06] MEDS: Insulin DETEMIR 100 UNIT/ML X5UNITS SUBQ SCH (20:57)
[2022-01-06] MEDS: Ipratropium/Albuterol Neb 3 ML IH PRN (21:15)
[2022-01-06] MEDS: *HR* LORazepam 0.5 MG TABLET PO PRN (22:30)
[2022-01-07] MEDS: *HR* Heparin 5,000 UNIT/ML VIAL SQ SCH ×2 (04:49→16:54)
[2022-01-07] MEDS: amLODIPine 5 MG TABLET PO SCH (09:22)
[2022-01-07] MEDS: Gabapentin 100 MG CAPSULE PO SCH ×3 (09:22→20:12)
[2022-01-07] MEDS: hydrOXYzine pamoate 25 MG CAPSULE PO SCH ×3 (09:22→20:12)
[2022-01-07] MEDS: Isosorbide MONOnitrate (24 HR) 30 MG TAB.ER.24H PO SCH (09:24)
[2022-01-07] MEDS: Furosemide 20 MG TABLET PO SCH (09:25)
[2022-01-07] MEDS: Aspirin Enteric Coated 81 MG Tablet PO SCH (09:25)
[2022-01-07] MEDS: Insulin LISPRO 300 UNITS/3 ML VIAL SUBQ SCH ×5 (09:27→20:12)
[2022-01-07] MEDS: polyethylene glycoL 3350 17 GM POWD.PACK PO SCH (10:43)
[2022-01-07] MEDS: Clobetasol Propionate 0.05% 15 GM Cream Tube TP SCH ×2 (10:44→20:16)
[2022-01-07] MEDS: *HR* LORazepam 0.5 MG TABLET PO PRN (12:07)
[2022-01-07] MEDS: QUEtiapine Fumarate 25 MG TABLET PO PRN (15:36)
[2022-01-07] MEDS: Insulin DETEMIR 100 UNIT/ML X5UNITS SUBQ SCH (20:11)
[2022-01-07] MEDS: traZODone 50 MG TABLET PO SCH (20:12)
[2022-01-07] MEDS: OLANZapine 5 MG TAB.RAPDIS PO SCH (20:13)
[2022-01-08] MEDS: *HR* LORazepam 0.5 MG TABLET PO PRN ×2 (00:22→12:42)
[2022-01-08] MEDS: *HR* Heparin 5,000 UNIT/ML VIAL SQ SCH ×2 (06:14→16:44)
[2022-01-08] MEDS: amLODIPine 5 MG TABLET PO SCH (09:02)
[2022-01-08] MEDS: QUEtiapine Fumarate 25 MG TABLET PO PRN ×2 (09:02→16:44)
[2022-01-08] MEDS: hydrOXYzine pamoate 25 MG CAPSULE PO SCH ×3 (09:02→20:45)
[2022-01-08] MEDS: Aspirin Enteric Coated 81 MG Tablet PO SCH (09:02)
[2022-01-08] MEDS: Furosemide 20 MG TABLET PO SCH (09:03)
[2022-01-08] MEDS: Isosorbide MONOnitrate (24 HR) 30 MG TAB.ER.24H PO SCH (09:04)
[2022-01-08] MEDS: Insulin LISPRO 300 UNITS/3 ML VIAL SUBQ SCH ×5 (09:04→20:44)
[2022-01-08] MEDS: polyethylene glycoL 3350 17 GM POWD.PACK PO SCH (09:04)
[2022-01-08] MEDS: Gabapentin 100 MG CAPSULE PO SCH ×3 (09:04→20:46)
[2022-01-08] MEDS: Clobetasol Propionate 0.05% 15 GM Cream Tube TP SCH ×2 (09:05→20:46)
[2022-01-08 11:21] LABS: Hematocrit 33.6 % (37.5-50.1); Hemoglobin 10.9 g/dL (12.9-16.9); Mean Corpuscular HGB Conc 32.4 g/dL (31.6-35.5); Mean Corpuscular Hemoglobin 28.1 pg (28.0-33.3); Mean Corpuscular Volume 86.6 fL (83.0-100.0); Mean Platelet Volume 8.8 fL (9.4-12.4); Platelet Count 178 K/mcL (140-400); Red Blood Count 3.88 M/mcL (4.19-5.50); Red Cell Distribution Width 14.3 % (11.5-14.5); White Blood Count 6.4 K/mcL (4.3-11.1)
[2022-01-08 11:38] LABS: Blood Urea Nitrogen 17 mg/dL (8-23); Calcium 9.1 mg/dL (8.6-10.3); Carbon Dioxide 33 mEq/L (23-29); Chloride 96 mEq/L (98-107); Glucose 282 mg/dL (70-105); Osmolality,Calculated 288 (280-300); Potassium 4.6 mEq/L (3.5-5.1); Sodium 133 mEq/L (136-145)
[2022-01-08 12:02] LABS: BUN/Creatinine Ratio 27 (6-26); eGFR For African Americans > 60 (> 60); eGFR For Non-African Americans > 60 (> 60)
[2022-01-08] MEDS: Insulin DETEMIR 100 UNIT/ML X5UNITS SUBQ SCH (20:45)
[2022-01-08] MEDS: traZODone 50 MG TABLET PO SCH (20:45)
[2022-01-08] MEDS: OLANZapine 5 MG TAB.RAPDIS PO SCH (20:46)
[2022-01-09] MEDS: *HR* Heparin 5,000 UNIT/ML VIAL SQ SCH ×2 (05:51→17:30)
[2022-01-09] MEDS ORDERED: methylPREDNISolone 125 MG/2 ML VIAL IVP ONE (07:56)
[2022-01-09] MEDS: Isosorbide MONOnitrate (24 HR) 30 MG TAB.ER.24H PO SCH (09:07)
[2022-01-09] MEDS: predniSONE 10 MG TABLET PO SCH (09:07)
[2022-01-09] MEDS: Gabapentin 100 MG CAPSULE PO SCH ×3 (09:07→20:43)
[2022-01-09] MEDS: Furosemide 20 MG TABLET PO SCH (09:07)
[2022-01-09] MEDS: Aspirin Enteric Coated 81 MG Tablet PO SCH (09:07)
[2022-01-09] MEDS: amLODIPine 5 MG TABLET PO SCH (09:07)
[2022-01-09] MEDS: Clobetasol Propionate 0.05% 15 GM Cream Tube TP SCH ×2 (09:08→20:41)
[2022-01-09] MEDS: Insulin LISPRO 300 UNITS/3 ML VIAL SUBQ SCH ×5 (09:08→20:45)
[2022-01-09] MEDS: hydrOXYzine pamoate 25 MG CAPSULE PO SCH ×3 (09:08→20:40)
[2022-01-09] MEDS: polyethylene glycoL 3350 17 GM POWD.PACK PO SCH (09:08)
[2022-01-09] MEDS: QUEtiapine Fumarate 25 MG TABLET PO PRN ×2 (12:33→20:31)
[2022-01-09] MEDS: OLANZapine 5 MG TAB.RAPDIS PO SCH (20:32)
[2022-01-09] MEDS: traZODone 50 MG TABLET PO SCH (20:41)
[2022-01-09] MEDS ORDERED: Insulin DETEMIR 100 UNIT/ML X5UNITS SUBQ SCH (21:00)
[2022-01-10] MEDS ORDERED: Insulin LISPRO 300 UNITS/3 ML VIAL SUBQ ONE ×3 (00:46→04:28)
[2022-01-10] MEDS: *HR* LORazepam 0.5 MG TABLET PO PRN ×2 (00:51→21:43)
[2022-01-10] MEDS ORDERED: Insulin DETEMIR 100 UNIT/ML X5UNITS SUBQ SCH (02:00)
[2022-01-10] MEDS ORDERED: Insulin DETEMIR 100 UNIT/ML X5UNITS SUBQ ONE (02:02)
[2022-01-10] MEDS: *HR* Heparin 5,000 UNIT/ML VIAL SQ SCH ×2 (04:36→16:56)
[2022-01-10] MEDS: Clobetasol Propionate 0.05% 15 GM Cream Tube TP SCH ×2 (09:27→20:35)
[2022-01-10] MEDS: Isosorbide MONOnitrate (24 HR) 30 MG TAB.ER.24H PO SCH (09:27)
[2022-01-10] MEDS: Aspirin Enteric Coated 81 MG Tablet PO SCH (09:27)
[2022-01-10] MEDS: hydrOXYzine pamoate 25 MG CAPSULE PO SCH ×3 (09:27→20:34)
[2022-01-10] MEDS: amLODIPine 5 MG TABLET PO SCH (09:27)
[2022-01-10] MEDS: Furosemide 20 MG TABLET PO SCH (09:27)
[2022-01-10] MEDS: predniSONE 10 MG TABLET PO SCH (09:27)
[2022-01-10] MEDS: Gabapentin 100 MG CAPSULE PO SCH ×3 (09:27→20:34)
[2022-01-10] MEDS: polyethylene glycoL 3350 17 GM POWD.PACK PO SCH (09:28)
[2022-01-10] MEDS: Insulin LISPRO 300 UNITS/3 ML VIAL SUBQ SCH ×5 (09:28→20:38)
[2022-01-10] MEDS: Insulin DETEMIR 100 UNIT/ML X5UNITS SUBQ SCH ×2 (12:36→20:38)
[2022-01-10] MEDS: Baclofen 10 MG TABLET PO PRN (15:04)
[2022-01-10] MEDS: traZODone 50 MG TABLET PO SCH (20:34)
[2022-01-10] MEDS: Bisacodyl 10 MG RECTAL SUPPOSITORY RC PRN (20:34)
[2022-01-10] MEDS: OLANZapine 5 MG TAB.RAPDIS PO SCH (20:35)
[2022-01-11] MEDS: *HR* Heparin 5,000 UNIT/ML VIAL SQ SCH ×2 (05:39→16:48)
[2022-01-11] MEDS: Aspirin Enteric Coated 81 MG Tablet PO SCH (08:37)
[2022-01-11] MEDS: Insulin LISPRO 300 UNITS/3 ML VIAL SUBQ SCH ×5 (08:37→20:52)
[2022-01-11] MEDS: Isosorbide MONOnitrate (24 HR) 30 MG TAB.ER.24H PO SCH (08:37)
[2022-01-11] MEDS: Furosemide 20 MG TABLET PO SCH (08:37)
[2022-01-11] MEDS: Gabapentin 100 MG CAPSULE PO SCH ×3 (08:38→20:53)
[2022-01-11] MEDS: hydrOXYzine pamoate 25 MG CAPSULE PO SCH ×3 (08:38→20:53)
[2022-01-11] MEDS: predniSONE 10 MG TABLET PO SCH (08:38)
[2022-01-11] MEDS: polyethylene glycoL 3350 17 GM POWD.PACK PO SCH (08:38)
[2022-01-11] MEDS: amLODIPine 5 MG TABLET PO SCH (08:38)
[2022-01-11] MEDS: Insulin DETEMIR 100 UNIT/ML X5UNITS SUBQ SCH ×2 (08:45→20:52)
[2022-01-11] MEDS: Clobetasol Propionate 0.05% 15 GM Cream Tube TP SCH ×2 (08:53→20:53)
[2022-01-11] MEDS: *HR* LORazepam 0.5 MG TABLET PO PRN (16:48)
[2022-01-11] MEDS: OLANZapine 5 MG TAB.RAPDIS PO SCH (20:53)
[2022-01-11] MEDS: traZODone 50 MG TABLET PO SCH (20:53)
[2022-01-12] MEDS: *HR* Heparin 5,000 UNIT/ML VIAL SQ SCH ×2 (04:50→16:49)
[2022-01-12] MEDS: Isosorbide MONOnitrate (24 HR) 30 MG TAB.ER.24H PO SCH (08:45)
[2022-01-12] MEDS: hydrOXYzine pamoate 25 MG CAPSULE PO SCH ×3 (08:45→22:48)
[2022-01-12] MEDS: Aspirin Enteric Coated 81 MG Tablet PO SCH (08:45)
[2022-01-12] MEDS: Insulin DETEMIR 100 UNIT/ML X5UNITS SUBQ SCH ×2 (08:46→22:49)
[2022-01-12] MEDS: predniSONE 10 MG TABLET PO SCH (08:46)
[2022-01-12] MEDS: Gabapentin 100 MG CAPSULE PO SCH ×3 (08:46→22:46)
[2022-01-12] MEDS: polyethylene glycoL 3350 17 GM POWD.PACK PO SCH (08:46)
[2022-01-12] MEDS: Furosemide 20 MG TABLET PO SCH (08:46)
[2022-01-12] MEDS: amLODIPine 5 MG TABLET PO SCH (08:46)
[2022-01-12] MEDS: Insulin LISPRO 300 UNITS/3 ML VIAL SUBQ SCH ×5 (08:47→22:50)
[2022-01-12] MEDS: Clobetasol Propionate 0.05% 15 GM Cream Tube TP SCH ×2 (08:54→22:48)
[2022-01-12] MEDS: *HR* LORazepam 0.5 MG TABLET PO PRN ×2 (11:56→23:51)
[2022-01-12] MEDS: Baclofen 10 MG TABLET PO PRN (16:54)
[2022-01-12] MEDS: QUEtiapine Fumarate 25 MG TABLET PO PRN (22:47)
[2022-01-12] MEDS: OLANZapine 5 MG TAB.RAPDIS PO SCH (22:47)
[2022-01-12] MEDS: traZODone 50 MG TABLET PO SCH (22:47)
[2022-01-13] MEDS: *HR* Heparin 5,000 UNIT/ML VIAL SQ SCH (05:51)
[2022-01-13 06:44] LABS: Hematocrit 35.9 % (37.5-50.1); Hemoglobin 11.9 g/dL (12.9-16.9); Mean Corpuscular HGB Conc 33.1 g/dL (31.6-35.5); Mean Corpuscular Volume 87.3 fL (83.0-100.0); Mean Platelet Volume 8.8 fL (9.4-12.4); Platelet Count 215 K/mcL (140-400); Red Blood Count 4.11 M/mcL (4.19-5.50); Red Cell Distribution Width 14.3 % (11.5-14.5)
[2022-01-13 06:51] VITALS: BP 123/78; PULSE 67; TEMP 97.9; O2SAT 98
[2022-01-13 06:52] LABS: White Blood Count 9.8 K/mcL (4.3-11.1)
[2022-01-13 07:00] LABS: BUN/Creatinine Ratio 28 (6-26); Blood Urea Nitrogen 19 mg/dL (8-23); Calcium 9.3 mg/dL (8.6-10.3); Carbon Dioxide 29 mEq/L (23-29); Chloride 99 mEq/L (98-107); Glucose 248 mg/dL (70-105); Osmolality,Calculated 295 (280-300); Potassium 4.1 mEq/L (3.5-5.1); Sodium 137 mEq/L (136-145); eGFR For African Americans > 60 (> 60); eGFR For Non-African Americans > 60 (> 60)
[2022-01-13] MEDS: Insulin DETEMIR 100 UNIT/ML X5UNITS SUBQ SCH (07:54)
[2022-01-13] MEDS: Insulin LISPRO 300 UNITS/3 ML VIAL SUBQ SCH (07:54)
[2022-01-13] MEDS: Isosorbide MONOnitrate (24 HR) 30 MG TAB.ER.24H PO SCH (07:54)
[2022-01-13] MEDS: hydrOXYzine pamoate 25 MG CAPSULE PO SCH (07:55)
[2022-01-13] MEDS: amLODIPine 5 MG TABLET PO SCH (07:55)
[2022-01-13] MEDS: polyethylene glycoL 3350 17 GM POWD.PACK PO SCH (07:55)
[2022-01-13] MEDS: predniSONE 10 MG TABLET PO SCH (07:55)
[2022-01-13] MEDS: Clobetasol Propionate 0.05% 15 GM Cream Tube TP SCH (07:55)
[2022-01-13] MEDS: Gabapentin 100 MG CAPSULE PO SCH (07:55)
[2022-01-13] MEDS: Furosemide 20 MG TABLET PO SCH (07:55)
[2022-01-13] MEDS: Aspirin Enteric Coated 81 MG Tablet PO SCH (07:55)
[2022-01-13 09:17] LABS: Influenza A PCR Negative (Negative); Influenza B PCR Negative (Negative); Resp. Syncytial Virus PCR Negative (Negative)
[2022-01-13 09:18] LABS: SARS-CoV-2 by PCR (In House) Negative (Negative)
== END 2022-01-13 11:12 | disposition home or self-care (01) | DRG 191 ==
LOC: 3BNU 15:49 → EMEROOARM 15:49 → SUATTDRO 21:07 → 3BNU 21:29
PROVIDERS: ADMIT Registered Nurse; ATTEND Registered Nurse